=== PATIENT | female | born 1950 | race Caucasian/White ===

== ENCOUNTER 2016-04-30 06:29 | Inpatient (IN) | payer MEDICARE ==
[2016-04-30] VITALS (27 sets, daily range): BP systolic 101–151; BP diastolic 59–94; BMI 53.4
[~2016-04-30] VITALS: Ht 167.6 cm; Wt 149.7 kg
[~2016-04-30 06:29] MED LIST: EFFEXOR XR150 MG PO; LEVOTHYROXINE50 MCG PO; LIPITOR40 MG PO; LISINOPRIL10 MG PO; NEURONTIN600 MG PO; OXYBUTYNIN CHLOR5 MG PO; PROTONIX40 MG PO; ZOCOR40 MG PO
[2016-04-30 07:25] LABS: BASOPHILS 0.1 % (0.0-2.0); EOSINOPHILS 0.5 % (0-7); HEMATOCRIT 22.5 % (36.0-48.0); IMMATURE GRANULOCYTES 0.7 % (0-5); LYMPHOCYTES 9.3 % (15-50); MCH 25.6 pg (26.0-34.0); MCHC 32.9 g/dL (31.0-37.0); MCV 77.9 fL (80.0-100.0); MEAN PLATELET VOLUME 9.8 fL (7.4-10.4); MONOCYTES 10.3 % (2-11); NEUTROPHILS 79.1 % (40-80); RBC 2.89 10x6/uL (4.00-5.40); RDW 16.5 % (11.5-14.5); WBC 9.2 10x3/uL (4.8-10.8)
[2016-04-30 07:31] LABS: HEMOGLOBIN 7.4 g/dL (12-16); PLATELET COUNT 229 10x3/uL (130-400)
[2016-04-30 07:41] LABS: ALBUMIN 2.4 g/dL (3.4-5.0); ALKALINE PHOSPHATASE 104 U/L (46-116); ALT (SGPT) 11 U/L (10-68); BILIRUBIN - TOTAL 1.93 mg/dL (0.2-1.3); CALC OSMOLALITY 279 mosm/kg (275-300); CALCIUM 9.2 mg/dL (8.5-10.1); CARBON DIOXIDE 21.8 mmol/L (21.0-32.0); CHLORIDE - SERUM 102 mmol/L (98-107); CREATININE - SERUM 1.2 mg/dL (0.6-1.3); GLUCOSE 109 mg/dL (74-106); POTASSIUM - SERUM 3.3 mmol/L (3.5-5.1); SODIUM 136 mmol/L (136-145); UREA NITROGEN 32 mg/dL (7-18); eGFR NON AFRICAN AMERICAN 48 mL/min (90-120)
[2016-04-30 07:57] LABS: CKMB 0.9 U/L (0.0-3.6); CREATINE KINASE 83 UL (21-215); TROPONIN-I 0.142 ng/mL (0.000-0.060)
--- NOTE | 2016-04-30 09:47 | NUR ---
CALLED DR MONROY AND PEDRO OFFICE FOR CONSULTS.
--- NOTE | 2016-04-30 10:07 | NUR ---
NOTED CONSULT FOR OBGYN, DR HERNDON IS COMMUNITY SERVICES MANAGER FOR OBGYN, SPOKE WITH DR HERNDON. HE STATED HE WOULD BE BY TO SEE PT TODAY.
[2016-04-30] MEDS ORDERED: IBUPROFEN800 MG PO ×2 (10:48→10:49)
[2016-04-30] MEDS ORDERED: METOPROLOL TART25 MG PO (10:51)
[2016-04-30] MEDS ORDERED: LOVENOX40 MG/0.4 SC (10:52)
[2016-04-30] MEDS ORDERED: COLACE100 MG PO (10:53)
[2016-04-30] MEDS ORDERED: PERCOCET 5-3251 TAB PO (10:55)
[2016-04-30] MEDS ORDERED: GENASYME80 MG PO (10:57)
[2016-04-30] MEDS ORDERED: ULTRAM50 MG PO ×2 (10:57→10:58)
[2016-04-30] MEDS ORDERED: COZAAR50 MG PO (10:59)
[2016-04-30] MEDS ORDERED: PROZAC40 MG PO (11:00)
[2016-04-30] MEDS ORDERED: BAYER CHEWABLE81 MG PO (11:00)
--- NOTE | 2016-04-30 11:15 | NUR ---
NOTED ABDOMINAL INCISION SITE HAS 24 CLIPS, STERI STRIPS APPLIED TO PARTS OF THE INCISION TO PROVIDE EXTRA SUPPORT. THERE IS AN INCH GAP BETWEEN CLIP TO THE NEXT CLIP AT THE CENTER OF INCISION SITE. STERI STRIPS PLACED TO PROVIDED SUPPORT TO SITE. SITE CLEANSED WITH WOUND CLEANSER. SITE IS CDI. NO ACUTE DISTRESS NOTED. WILL CONTINUE PLAN OF CARE.
--- NOTE | 2016-04-30 11:20 | NUR ---
NOTED STANDARD SCDS ARE TOO SMALL FOR PT. CALLED [facility], NOTED THERE IS A SIZE THAT IS SLIGHTLY LARGER THAN THE CURRENT SCDS. [facility] STATED THEY WILL DELIVER LARGER SCD SHORTLY. WILL CONTINUE PLAN OF CARE.
--- NOTE | 2016-04-30 11:54 | NUR ---
SITTING UP IN BED AT THIS TIME. AWAKE AND ALERT. NO ACUTE DISTRESS NOTED. DENIES ANY NEEDS. WILL CONTINUE PLAN OF CARE.
--- NOTE | 2016-04-30 12:15 | NUR ---
SITTING UP IN BED AT THIS TIME VISITING WITH FAMILY. NO ACUTE DISTRESS NOTED.W ILL CONTINUE PLAN OF CARE.
--- NOTE | 2016-04-30 12:32 | NUR ---
NOTED PT HAS METOPROLOL ORDERED TO BE ADMIN. PT CURRENTLY RECIEVING BLOOD AT THIS TIME. WILL ADMIN AFTER BLOOD INFUSION IS COMPLETE.
--- NOTE | 2016-04-30 13:49 | NUR ---
PT LEFT FOR CT AT THIS TIME VIA BED, ACCOMPANIED BY HOSPITAL STAFF. NO ACUTE DISTRESS NOTED. WILL CONTINUE PLAN OF CARE.
--- NOTE | 2016-04-30 14:15 | NUR ---
RETURNED FROM CT AT THIS TIME VIA BED ACCOMPANIED BY HOSPITAL STAFF. NO ACUTE DISTRESS NOTED. WILL CONTINUE TO OBSERVE.
[2016-04-30 15:28] LABS: HEMOGLOBIN 7.8 g/dL (12-16)
[2016-04-30 16:10] LABS: CKMB 8.3 U/L (0.0-3.6); CREATINE KINASE 138 UL (21-215); TROPONIN-I 2.214 ng/mL (0.000-0.060)
--- NOTE | 2016-04-30 16:38 | NUR ---
SITTING UP IN BED WATCHING TV AT THIS TIME. NO ACUTE DISTRESS NOTED. WILL CONTINUE PLAN FO CARE.
--- NOTE | 2016-04-30 18:07 | NUR ---
SMALL EPISODE OF INCONTINENT BOWEL MOVEMENT NOTED, FORMED BROWN. PARTIAL LINEN CHANGE PROVIDED. ALSO NOTED AT THIS TIME SOME SCANT DRAINAGE NOTED TO LEFT SIDE OF INCISIONAL SITE, LIGHT RED IN COLOR. 4X4 GAUAZE AND TAPE APPLIED TO SITE. NO ACUTE DISTRESS NOTED. WILL CONTINUE PLAN OF CARE.
--- NOTE | 2016-04-30 19:00 | NUR ---
PT AOX4, DENIES PAIN AT THIS TIME. VSS, SHALLOW RESPIRATIONS, SPO2 97 ON 2L O2. BOWEL SOUNDS ACITVE IN ALL QUADRANTS. ABD TENDER WITH LOWER TRANSVERSE INCISION PRESENT WITH CLIPS AND STERI STRIPS INTACT. JOYCE CATH INTACT. GENERALIZED WEAKNESS PRESENT. PT REPOSITIONED FOR COMFORT. DENIES FURTHER NEEDS AT THIS TIME. CALL LIGHT AND BEDSIDE TABLE WITHIN PT REACH. CPOC.
[2016-04-30 20:09] LABS: HEMATOCRIT 24.6 % (36.0-48.0); HEMOGLOBIN 7.9 g/dL (12-16)
--- NOTE | 2016-04-30 20:15 | NUR ---
YANICK CALLED WITH LATEST H&H RESULTS. NEW ORDER'S REC'D.
[2016-04-30 20:32] LABS: APPEARANCE HAZY (CLEAR); BILIRUBIN NEGATIVE (NEGATIVE); COLOR YELLOW (YELLOW); GLUCOSE NEGATIVE (NEGATIVE); KETONE NEGATIVE (NEGATIVE); LEUKOCYTE ESTERASE 2+ (NEGATIVE); NITRITE POSITIVE (NEGATIVE); PROTEIN TRACE mg/dL (NEGATIVE); UROBILINOGEN NORMAL (NORMAL)
[2016-04-30 20:34] LABS: BACTERIA MANY /hpf (NONE SEEN); WHITE CELLS - URINE >50 /hpf (0-5)
[2016-04-30 20:43] LABS: CKMB 11.8 U/L (0.0-3.6); CREATINE KINASE 156 UL (21-215)
[2016-04-30 20:44] LABS: TROPONIN-I 4.459 ng/mL (0.000-0.060)
--- NOTE | 2016-04-30 21:12 | NUR ---
SARA IRAHETA WITH ELEVATED CARDIAC ENZYME RESULTS, NO NEW ORDERS REC'D AT THIS TIME. CPOC.
--- NOTE | 2016-04-30 21:45 | NUR ---
1 UNIT PRBC'S STARTED, NO S/S OF REACTION AT THIS TIME. VSS. DENIES PAIN AT THIS TIME. NO VISITORS AT THIS TIME. CALL LIGHT AND BEDSIDE TABLE WITHIN PT REACH. CPOC.
[2016-05-01] VITALS (22 sets, daily range): BP systolic 97–141; BP diastolic 49–92; Ht 167.6 cm; Wt 149.7 kg
--- NOTE | 2016-05-01 01:00 | NUR ---
PT SLEEPING QUIETLY WITH VSS, NO S/S OF PAIN OR DISTRESS NOTED AT THIS TIME. PT ALLOWED TO CONTINUE SLEEPING UNDISTURBED AT THIS TIME. CALL LIGHT AND BEDSIDE TABLE WITHIN PT REACH. CPOC.
--- NOTE | 2016-05-01 03:00 | NUR ---
REASSESSMENT COMPLETE, SEE FLOWSHEET FOR ALL FINDINGS. PT REPOSITIONED FOR COMFORT. ABD INCISION CLEAN AND DRY. PARTIAL LINEN CHANGE COMPLETE. VSS, NO C/O PAIN AT THIS TIME. VOICES NO NEEDS AT THIS TIME. CALL LIGHT AND BEDSIDE TABLE WITHIN PT REACH. CPOC.
--- NOTE | 2016-05-01 05:00 | NUR ---
PT SLEEPING QUIETLY WITH VSS, NO S/S OF PAIN OR DISTRESS AT THIS TIME.
[2016-05-01 05:41] LABS: BASOPHILS 0.1 % (0.0-2.0); EOSINOPHILS 1.9 % (0-7); HEMATOCRIT 26.7 % (36.0-48.0); HEMOGLOBIN 8.6 g/dL (12-16); IMMATURE GRANULOCYTES 0.8 % (0-5); MCH 25.7 pg (26.0-34.0); MCHC 32.2 g/dL (31.0-37.0); MONOCYTES 11.7 % (2-11); NEUTROPHILS 73.5 % (40-80); PLATELET COUNT 238 10x3/uL (130-400); RBC 3.34 10x6/uL (4.00-5.40); RDW 16.5 % (11.5-14.5); WBC 7.9 10x3/uL (4.8-10.8)
[2016-05-01 05:44] LABS: MCV 79.9 fL (80.0-100.0)
[2016-05-01 06:07] LABS: ALBUMIN 2.2 g/dL (3.4-5.0); ALKALINE PHOSPHATASE 100 U/L (46-116); CALC OSMOLALITY 281 mosm/kg (275-300); CALCIUM 8.6 mg/dL (8.5-10.1); CARBON DIOXIDE 24.9 mmol/L (21.0-32.0); CHLORIDE - SERUM 104 mmol/L (98-107); CHOL - HDL RATIO 5.6 ratio (2.3-4.1); CHOLESTEROL, TOTAL 129 mg/dL (0-200); CREATININE - SERUM 0.9 mg/dL (0.6-1.3); GLUCOSE 88 mg/dL (74-106); HDL CHOLESTEROL 23 mg/dL (32-96); LDL CHOLESTEROL 80 mg/dL (0-100); LDL-HDL RATIO 3.5 ratio (1.5-3.5); PHOSPHOROUS 3.8 mg/dL (2.5-4.9); POTASSIUM - SERUM 3.6 mmol/L (3.5-5.1); PRO BNP 8474 pg/mL (0-125); PROTEIN - SERUM 5.9 g/dL (6.4-8.2); SODIUM 139 mmol/L (136-145); THYROID STIMULATING HORMONE 2.06 uIU/mL (0.36-3.74); TRIGLYCERIDE 132 mg/dL (30-200); UREA NITROGEN 27 mg/dL (7-18); eGFR NON AFRICAN AMERICAN 67 mL/min (90-120)
[2016-05-01 06:13] LABS: ALT (SGPT) 16 U/L (10-68); TROPONIN-I 3.448 ng/mL (0.000-0.060)
--- NOTE | 2016-05-01 07:49 | NUR ---
NOTED DR HERNDON HAD COME BY TO SEE PT. INCISIONAL SITE NOTED TO HAVE SOME DARK RED DRAINAGE. DR HERNDON AT THIS TIME DC CLIPS AND USED GAUZE TO HELP ASSIST THE DRAINAGE. FLUID FROM INCISION NOTED FOWEL SMELLING. CULTURE OF INCISIONAL SITE SENT TO LAB. AT THIS TIME ALSO NOTED PHYSICIAN CONSULT ORDER FOR DR BARNETT TO ASSESS INCISIONAL SITE TO SEE IF ANY OTHER STEPS NEED TO BE PERFORMED AT THIS TIME. CALLED CONSENT INTO DR BARNETT, DR BARNETT STATED HE WOULD BE BY TO SEE PT. NO FURTHER ORDERS AT THIS TIME. WILL CONTINUE PLAN OF CARE.
[2016-05-01 09:22] LABS: HEMATOCRIT 27.1 % (36.0-48.0); HEMOGLOBIN 8.8 g/dL (12-16)
--- NOTE | 2016-05-01 10:04 | NUR ---
SITTING UP IN BED RESTING AT THIS TIME. RESTPIRATIONS EVEN AND UNLABORED. NO AWAKENS EASILY TO STAFF VOICE. NO ACUTE DISTRESS NOTED. WILL CONTINUE PLAN OF CARE.
--- NOTE | 2016-05-01 11:27 | NUR ---
NOTED DR BARNETT HAS SEEN PT. ABDOMINAL INCISION SITE HAS BEEN CLEANED WITH HYDROGEN PEROXIDE AND PACKED WITH CUREX THEN COVERED WITH ABD PAD. DR BARNETT STATED HE WOULD BE BY TOMORROW TO CHANGE THE PACKING. ALSO REGULAR DIET ORDERED AT THIS TIME. WILL CONTINUE PLAN OF CARE.
[2016-05-01 13:17] LABS: HEMATOCRIT 28.2 % (36.0-48.0); HEMOGLOBIN 9.1 g/dL (12-16)
--- NOTE | 2016-05-01 13:18 | NUR ---
SMALL BOWEL MOVEMENT NOTED, LOOSE BROWN. ALL CARE AND JOYCE CARE PROVIDED VIA TOTAL ASSIST. PT IS ABLE TO HELP WITH TURNING VIA MODERATE ASSIST. BUTTPASTE APPLIED TO BUTTOCKS. NO ACUTE DISTRESS NOTED. WILL CONTINUE PLAN OF CARE.
--- NOTE | 2016-05-01 15:17 | NUR ---
SMALL BOWEL MOVEMENT NOTED VIA BEDPAN, LIQUID BROWN-YELLOW. ALL CARE AND JOYCE CARE PROVIDED VIA TOTAL ASSIST X 2. NO ACUTE DISTRESS NOTED. WILL CONTINUE PLAN OF CARE. FAMILY AT BEDSIDE.
--- NOTE | 2016-05-01 16:26 | NUR ---
SITTING UP IN BED RESTING AT THIS TIME. AWAKENS EASILY WHEN STAFF STATES PT NAME. NO ACUTE DISTRESS NOTED. WILL CONTINUE PLAN OF CARE.
[2016-05-01 18:58] LABS: HEMATOCRIT 30.6 % (36.0-48.0); HEMOGLOBIN 9.5 g/dL (12-16)
--- NOTE | 2016-05-01 19:25 | NUR ---
PT AOX4. VSS, RATES PAIN AT 4/10. PT REPOSITIONED FOR COMFORT. LOWER ABD WITH TRANSVERSE INCISION PRESENT, DRSG CDI WITH NO S/S OF BLEEDING AT THIS TIME. BRUISING NOTED TO ABDOMEN. GENERLIZED WEAKNESS PRESENT. LINEN CHANGE COMPLETE. ORAL CARE COMPLETE. DENIES FURTHER NEEDS AT THIS TIME. CALL LIGHT AND BEDSIDE TABLE WITHIN PT REACH. CPOC.
--- NOTE | 2016-05-01 21:03 | NUR ---
NO VISITORS AT THIS TIME. PT STATES PAIN MEDICATION HAS MADE HER COMFORTABLE. PT REPOSITIONED. NO S/S OF DRAINAGE OR BLEEDING FROM INCISION SITE AT THIS TIME. VSS. DENIES FURTHER NEEDS AT THIS TIME. CALL LIGHT AND BEDSIDE TABLE WITHIN PT REACH. CPOC.
--- NOTE | 2016-05-01 23:09 | NUR ---
REASSESSMENT COMPLETE, SEE FLOWSHEET FOR ALL FINDINGS. PT RESTING QUIETLY WITH VSS. ABD INCISION WITHOUT S/S OF DRAINAGE AT THIS TIME. DSG CDI. FRESH WATER TO BEDSIDE. REPOSITIONED FOR COMFORT. VOICES NO FURTHER NEEDS AT THIS TIME. CALL LIGHT AND BEDSIDE TABLE WITHIN PT REACH. CPOC.
[2016-05-02] VITALS (18 sets, daily range): BP systolic 105–184; BP diastolic 62–95
--- NOTE | 2016-05-02 01:38 | NUR ---
PT SLEEPING QUIETLY WITH VSS, NO S/S OF DISTRESS AT THIS TIME. PT ALLOWED TO CONTINUE SLEEPING UNDISTURBED AT THIS TIME. CALL LIGHT AND BEDSIDE TABLE WITHIN PT REACH. CPOC.
--- NOTE | 2016-05-02 03:04 | NUR ---
SMALL AMOUNT OF SEROSANG DRAINAGE NOTED FROM LEFT LOWER PORTION OF ABD DRESSING. GOWN CHANGED. PT REPORTS NO PAIN AT THIS TIME. VSS. PT RESTING COMFORTABLY AT THIS TIME. CALL LIGHT AND BEDSIDE TABLE WITHIN PT REACH. CPOC.
[2016-05-02 07:04] LABS: ALBUMIN 2.2 g/dL (3.4-5.0); ANION GAP 14.5 mmol/L (8-16); BILIRUBIN - TOTAL 0.76 mg/dL (0.2-1.3); CALCIUM 8.7 mg/dL (8.5-10.1); CARBON DIOXIDE 23.5 mmol/L (21.0-32.0); CREATININE - SERUM 0.9 mg/dL (0.6-1.3)
[2016-05-02 07:09] LABS: BASOPHILS 0.3 % (0.0-2.0); EOSINOPHILS 3.8 % (0-7); HEMATOCRIT 27.8 % (36.0-48.0); HEMOGLOBIN 8.9 g/dL (12-16); LYMPHOCYTES 15.2 % (15-50); MCH 25.8 pg (26.0-34.0); MCV 80.6 fL (80.0-100.0); MEAN PLATELET VOLUME 10.2 fL (7.4-10.4); MONOCYTES 10.9 % (2-11); NEUTROPHILS 67.8 % (40-80); PLATELET COUNT 262 10x3/uL (130-400); RBC 3.45 10x6/uL (4.00-5.40); RDW 16.8 % (11.5-14.5); WBC 7.9 10x3/uL (4.8-10.8)
--- NOTE | 2016-05-02 08:19 | NUR ---
SITTING UP IN BED AT THIS TIME EATING BREAKFAST. DENIES ANY NEEDS AT THIS TIME. NO ACUTE DISTRESS NOTED. WILL CONTINUE PLAN OF CARE.
--- NOTE | 2016-05-02 11:54 | NUR ---
NOTED RECICEVED TRANSFER ORDERS FROM DR BARNETT, DR VO, AND DR HERNDON. WILL TRANSFER PT TO [facility] WITH DIAGNOSIS OF ACUTE BLOOD LOSS CAUSE OF POST OP ANEMIA. WILL NOTIFY SOFTWARE DESIGN ANALYST AT THIS TIME.
--- NOTE | 2016-05-02 12:22 | NUR ---
SITTING UP IN BED AT THIS TIME EATING LUNCH AT THIS TIME. NO ACUTE DISTRESS NOTED. DENIES ANY NEEDS. WILL CONTINUE PLAN OF CARE.
[2016-05-02 13:01] LABS: HEMATOCRIT 29.5 % (36.0-48.0); HEMOGLOBIN 9.3 g/dL (12-16)
--- NOTE | 2016-05-02 14:59 | NUR ---
LARGE SIZED BOWEL MOVEMENT NOTED. ASSISTED PT WITH CLEANUP WITH ALL CARE AND JOYCE CARE VIA TOTAL ASSIST X 2 PERSON. BUTTPASTE APPLIED TO SITE. NO ACUTE DISTRESS NOTED. WILL CONTINUE PLAN OF CARE.
--- NOTE | 2016-05-02 15:40 | NUR ---
NOTED ORDERS FOR PT TO GO TO ROOM 2225, WILL CALL REPORT TO MED SURG AT THIS TIME.
--- NOTE | 2016-05-02 15:54 | NUR ---
REPORT GIVEN TO BERNADETTE. WILL SEND PT SHORTLY TO ROOM 2225.
--- NOTE | 2016-05-02 16:15 | NUR ---
PT TRANSFERRED TO 2225 AT THIS TIME VIA BED ACCOMPANIED BY HOSPITAL STAFF. ALL PESONAL ITEMS TAKEN TO ROOM 2225 WITH PT. NO FURTHER ACTIONS.
--- NOTE | 2016-05-02 16:30 | NUR ---
TO ROOM 2225VIA BED FROM ICU.PT WITHOUT DISTRESS.BRUISES NOTED TO BILATERAL ARMS.RASH UNDER ARMS AND ABDOMINAL FOLDS.ABDOMINAL DRESSING CLEAN,DRY AND INTACT.EXCORIATION AND OPEN AREAS NOTED IN BILATERAL INNER BUTTOCKS. SCD'S IN PLACE.02 AT 2 LITERS PER NASAL CANULA WITH SATS 95-96 ON ROOM AIR.
--- NOTE | 2016-05-02 17:40 | NUR ---
PAIN MEDS ORDERED PER JUN.
[2016-05-02 18:21] LABS: HEMATOCRIT 30.1 % (36.0-48.0); HEMOGLOBIN 9.5 g/dL (12-16)
--- NOTE | 2016-05-02 19:00 | NUR ---
REC'D IN BED AWAKE AND ALERT. RESP EVEN AND UNLABORED WITH NO DISTRESS NOTED. PT NOTED TO HAVE BROWN DRAINING NOTE TO HER GOWN AND BED LINEN AT THIS TIME. CAN VOICE NEEDS AND WANTS. ASSESSMENT COMPLETED. C/L IN REACH AT BEDSIDE.
--- NOTE | 2016-05-02 19:14 | NUR ---
REMAINS WITHOUT NEEDS,WITHOUT DISTRESS.CONT PLAN OF CARE
--- NOTE | 2016-05-02 20:00 | NUR ---
PT WAS BATHED AT THIS TIME WITH BROWNISH DRAINAGE NOTED FROM UNDERNEATH LEFT SIDE OF DRESSING. EXTRA ABD PADS WAS APPLIED AT THIS TIME UNDERNEATH FOLDS.BED LINEN WAS CHANGED. C/L IN REACH AT BEDSIDE.
[2016-05-03] VITALS: BP 165/54
[2016-05-03 04:00] VITALS: BP 158/60
--- NOTE | 2016-05-03 04:52 | NUR ---
RESTING WELL AT THIS TIME. C/L IN REACH AT BEDSIDE.
--- NOTE | 2016-05-03 07:30 | NUR ---
AWAKE ALERT COLOR ADQ SKIN WARM AND DRY RESP EVEN AND UNLABORED AT PRESENT UPPER LEFT ARM IV IN PLACE SITE CLEAN AND DRY WITHOUT REDDNESS OR EDEMA MANY OLD BRUISES TO BODY AT PRESENT.
[2016-05-03 08:18] VITALS: BP 186/64
--- NOTE | 2016-05-03 09:00 | NUR ---
MEDS GIVEN VICTOR MANUEL WELL AT PRESENT N/C VOICED.
--- NOTE | 2016-05-03 10:50 | NUR ---
DSG CHG DONE REPACKED PURULENT DRAINAGE NOTED AT PRESENT WTD.
--- NOTE | 2016-05-03 11:00 | NUR ---
WATCHING QUIETLY AT PRESENT DENIES ANY NEEDS AT PRESENT.DSG TO ABD IN TACT AT PRESENT.
--- NOTE | 2016-05-03 11:05 | NUR ---
Patient Name: OLEG ELY Admission Status: ER Accout number: [id number] Admission Date: 04-30-2016 : 1950 Admission Diagnosis: Attending: ALBERTO Current LOS: 3 Anticipated DC Date: 05-07-2016 Planned Disposition: Home or Self Care Primary Insurance: [facility] Discharge Planning Comments: CM MET WITH PATIENT REGARDING D/C NEEDS AND PLANS. PATIENT STATED SHE LIVES ALONE AND HER DAUGHTER (EMILY) WILL PICK HER UP AT DISCHARGE AND DRIVE HER HOME. PATIENT IS INDEPENDENT WITH HER CARE AND HAS A WHEELCHAIR, WALKER, SHOWER CHAIR, AND HOSPITAL BED AT HOME. PATIENT STATED THERE ARE NO STEPS OR STAIRS AT HER HOME. PATIENTS PCP IS DR. BOWLING AND PHARMACY IS [facility]. PATIENT RECENTLY WAS AT [facility] AND NOW BACK IN HOSPITAL. PATIENT DOES NOT WANT HH AT THIS TIME. CM WILL CONTINUE TO FOLLOW PATIENT WITH D/C NEEDS AND PLANS. PCP DR[facility]- [phone] EMILY (DAUGHTER) [phone] Class B Driver: Esther Liao Is the patient Alert and Oriented? Yes 0 * How many steps to enter\exit or inside your home? 0 0 * PCP DR. BOWLING 0 * Pharmacy [facility] 0 * Preadmission Environment Home Alone 0 * ADLs Independent 0 * Equipment Hospital Bed Shower Chair Walker Wheelchair 0 * List name and contact numbers for known caregivers / representatives who currently or will assist patient after discharge: EMILY (DAUGHTER) [phone] 0 Grand Total: 0
[2016-05-03 11:49] VITALS: BP 130/46
[2016-05-03 12:13] LABS: BASOPHILS 0.1 % (0.0-2.0); EOSINOPHILS 2.2 % (0-7); HEMATOCRIT 29.1 % (36.0-48.0); HEMOGLOBIN 9.1 g/dL (12-16); IMMATURE GRANULOCYTES 1.2 % (0-5); LYMPHOCYTES 11.6 % (15-50); MCH 25.6 pg (26.0-34.0); MCHC 31.3 g/dL (31.0-37.0); MCV 81.7 fL (80.0-100.0); MEAN PLATELET VOLUME 9.7 fL (7.4-10.4); MONOCYTES 9.2 % (2-11); NEUTROPHILS 75.7 % (40-80); PLATELET COUNT 234 10x3/uL (130-400); RBC 3.56 10x6/uL (4.00-5.40); RDW 17.1 % (11.5-14.5); WBC 8.6 10x3/uL (4.8-10.8)
[2016-05-03 12:48] LABS: ALBUMIN 2.1 g/dL (3.4-5.0); ANION GAP 13.2 mmol/L (8-16); BILIRUBIN - TOTAL 0.56 mg/dL (0.2-1.3); CALCIUM 8.7 mg/dL (8.5-10.1); CARBON DIOXIDE 22.6 mmol/L (21.0-32.0); CREATININE - SERUM 0.9 mg/dL (0.6-1.3); POTASSIUM - SERUM 3.8 mmol/L (3.5-5.1); PROTEIN - SERUM 5.6 g/dL (6.4-8.2)
--- NOTE | 2016-05-03 13:00 | NUR ---
WATCHING TV QUIETLY AT PRESENT.
--- NOTE | 2016-05-03 14:00 | NUR ---
QUIET IN ROOM AT PRESENT DENIES ANY NEEDS AT PRESENT.DENIES ANT NEEDS OTHER THAN CONT TO C/O PAIN AT PRESENT.
[2016-05-03 15:47] VITALS: BP 157/66
--- NOTE | 2016-05-03 16:45 | NUR ---
STATUS REMAINS UNCHGD URINE OBTAINED FROM JOYCE IN ST MANNER STATUS REMAINS UNCHGD AT PRESENT.
[2016-05-03 18:32] LABS: APPEARANCE CLEAR (CLEAR); BILIRUBIN NEGATIVE (NEGATIVE); COLOR YELLOW (YELLOW); GLUCOSE NEGATIVE (NEGATIVE); KETONE NEGATIVE (NEGATIVE); LEUKOCYTE ESTERASE 1+ (NEGATIVE); NITRITE NEGATIVE (NEGATIVE); PROTEIN TRACE mg/dL (NEGATIVE); SPECIFIC GRAVITY 1.015 (1.005-1.020); UROBILINOGEN NORMAL (NORMAL); WHITE CELLS - URINE 0-5 /hpf (0-5)
[2016-05-03 18:33] LABS: BACTERIA FEW /hpf (NONE SEEN); EPITHELIAL CELLS 0-5 /hpf (0-5); RED CELLS - URINE 25-50 /hpf (0-5)
[2016-05-03 19:00] VITALS: BP 157/65
[2016-05-04] VITALS: BP 185/76
[2016-05-04 04:00] VITALS: BP 156/54
--- NOTE | 2016-05-04 04:08 | NUR ---
EYES CLOSED RESPIRATIONS WITH EASE AND UNLABORED.
[2016-05-04 05:11] LABS: ANION GAP 11.2 mmol/L (8-16); BILIRUBIN - TOTAL 0.49 mg/dL (0.2-1.3); CALCIUM 8.4 mg/dL (8.5-10.1); CARBON DIOXIDE 25.2 mmol/L (21.0-32.0); CREATININE - SERUM 0.9 mg/dL (0.6-1.3); POTASSIUM - SERUM 3.4 mmol/L (3.5-5.1); PROTEIN - SERUM 5.4 g/dL (6.4-8.2)
[2016-05-04 05:18] LABS: BASOPHILS 0.1 % (0.0-2.0); EOSINOPHILS 2.3 % (0-7); HEMATOCRIT 28.5 % (36.0-48.0); HEMOGLOBIN 8.6 g/dL (12-16); IMMATURE GRANULOCYTES 1.4 % (0-5); LYMPHOCYTES 15.1 % (15-50); MCH 25.4 pg (26.0-34.0); MCHC 30.2 g/dL (31.0-37.0); MCV 84.1 fL (80.0-100.0); MONOCYTES 9.5 % (2-11); NEUTROPHILS 71.6 % (40-80); PLATELET COUNT 276 10x3/uL (130-400); RBC 3.39 10x6/uL (4.00-5.40); RDW 17.6 % (11.5-14.5); WBC 8.4 10x3/uL (4.8-10.8)
--- NOTE | 2016-05-04 07:00 | NUR ---
REPORT RECIEVED ASSUMED CARE. PATIENT IN BED WITH IV INTACT. NO COMPLAINTS. CALL LIGHT WITHIN REACH.
[2016-05-04 08:12] VITALS: BP 184/76
--- NOTE | 2016-05-04 08:29 | NUR ---
DRESSING CHANGED AT THIS TIME BY DR. BARNETT.
--- NOTE | 2016-05-04 10:45 | NUR ---
PATIENT REPOSITIONED AND CHANGED AT THIS TIME. STATED SHE HAS ALREADY NOTIFIED PHYSICIAN ABOUT [facility] DISCHARGE. NO NEW ORDERS AT THIS TIME. CALL LIGHTW ITHIN REACH.
--- NOTE | 2016-05-04 11:03 | NUR ---
NUTRITION MONITORING & EVAL CHART REVIEWED. PT CURRENTLY SLEEPING. SENIOR SALES OPERATIONS ANALYST REPORTS PT WITH ~25% INTAKE REG BREAKFAST. WILL CONTINUE TO PROVIDE DIET, MONITOR PT PROGRESS. RD FOLLOWING
[2016-05-04 11:55] VITALS: BP 155/57
[2016-05-04 16:37] VITALS: BP 130/63
--- NOTE | 2016-05-04 18:55 | NUR ---
PATIENT IN BED WITH IV INTACT. NO COMPLAINTS. CALL LIGHT WITHIN REACH.
[2016-05-04 19:00] VITALS: BP 192/72
--- NOTE | 2016-05-04 20:00 | NUR ---
ASSESSMENT PER FLOWSHEET. LEFT MIDLINE IV PATENT WITH NS AT 10CC'S/HR AND PROTONIX GTT AT 10CC'S/HR. SITE CLEAR. ABDOMINAL INCISION DRSG C/D/I. VAGINAL PAD ON. JOYCE TO BS DRAINAGE WITH YELLOW URINE. SR UP X2 CALL LIGHT WITHIN REACH.
--- NOTE | 2016-05-04 21:30 | NUR ---
MEDS GIVEN PER MAR.
--- NOTE | 2016-05-04 23:08 | NUR ---
DENIES NEEDS SR UP X2 CALL LIGHT WITHIN REACH.
--- NOTE | 2016-05-04 23:08 | NUR ---
RESTING QUIETLY RESPIRATIONS WITH EASE AND UNLABORED.
[2016-05-05 01:00] VITALS: BP 154/78
--- NOTE | 2016-05-05 04:31 | NUR ---
C/O INCISIONAL PAIN RATES PAIN LEVEL #6 NORCO 10 TAB ONE PO GIVEN FOR PAIN CONTROL.
[2016-05-05 04:53] VITALS: BP 160/80
[2016-05-05 05:48] LABS: BASOPHILS 0.1 % (0.0-2.0); EOSINOPHILS 3.4 % (0-7); IMMATURE GRANULOCYTES 1.5 % (0-5); LYMPHOCYTES 15.3 % (15-50); MCH 25.6 pg (26.0-34.0); MCV 82.4 fL (80.0-100.0); MEAN PLATELET VOLUME 9.9 fL (7.4-10.4); MONOCYTES 7.9 % (2-11); NEUTROPHILS 71.8 % (40-80); PLATELET COUNT 306 10x3/uL (130-400); RBC 3.52 10x6/uL (4.00-5.40); RDW 17.5 % (11.5-14.5); WBC 7.4 10x3/uL (4.8-10.8)
[2016-05-05 06:21] LABS: ALKALINE PHOSPHATASE 81 U/L (46-116); CALC OSMOLALITY 284 mosm/kg (275-300); CALCIUM 8.4 mg/dL (8.5-10.1); CARBON DIOXIDE 28.5 mmol/L (21.0-32.0); CHLORIDE - SERUM 108 mmol/L (98-107); CREATININE - SERUM 0.8 mg/dL (0.6-1.3); GLUCOSE 91 mg/dL (74-106); PROTEIN - SERUM 4.8 g/dL (6.4-8.2); SODIUM 143 mmol/L (136-145); UREA NITROGEN 13 mg/dL (7-18); eGFR NON AFRICAN AMERICAN 77 mL/min (90-120)
[2016-05-05 06:23] LABS: ALT (SGPT) 16 U/L (10-68); POTASSIUM - SERUM 4.2 mmol/L (3.5-5.1)
--- NOTE | 2016-05-05 07:25 | NUR ---
PATIENT RECEIVED IN MID SHAFFER POSITION RESTING WITH EYES CLOSED. RESPIRATIONS EVEN AND UNLABORED. SIDE RAILS UP X3. BED IN LOW POSITION. CALL LIGHT IN REACH.
[2016-05-05 08:08] VITALS: BP 147/64
--- NOTE | 2016-05-05 08:40 | NUR ---
PATIENT ALERT IN MID SHAFFER POSITION EATING BREAKFAST. TOLERATING WELL. SCHEDULED MEDICATION ADMINISTERED. DENIES NEEDS. SIDE RAILS UP X2. BED IN LOW POSITION. CALL LIGHT IN REACH.
--- NOTE | 2016-05-05 10:52 | NUR ---
PATIENT ALERT IN BED WATCHING TV. C/O PAIN 12/02. 1 TAB NORCO PER PRN ORDER. BED IN LOW POSITION. CALL LIGHT IN REACH. SIDE RAILS UP X3
[2016-05-05 12:19] VITALS: BP 185/71
--- NOTE | 2016-05-05 13:45 | NUR ---
JOYCE CATH D/C PER ORDER. JOYCE CARE PROVIDED PER PROTOCOL. APPROXIMATELY 1650CC URINE REMAINED IN COLLECTION BAG. WELL TOLERATED. WILL CONTINUE TO MONITOR OUTPUT
[2016-05-05 15:45] VITALS: BP 132/57
--- NOTE | 2016-05-05 16:40 | NUR ---
PATIENT IN BED RESTING QUIETLY WITH EYES CLOSED. RESPIRATIONS EVEN AND UNLABORED. WAKES EASY. SCHEDULED MEDICATION ADMINISTERED. SIDE RAILS UP X2. BED IN LOW POSITION. CALL LIGHT IN REACH.
--- NOTE | 2016-05-05 18:00 | NUR ---
ALERT IN MID SHAFFER POSITION WATCHING TV. NO SIGNS OF DISTRESS NOTED. DENIES NEEDS. SIDE RAILS UP X2. BED IN LOW POSITION. CALL LIGHT IN REACH.
[2016-05-05 21:11] VITALS: BP 116/83
[2016-05-06 04:24] VITALS: BP 198/81
[2016-05-06 05:25] LABS: BASOPHILS 0.1 % (0.0-2.0); EOSINOPHILS 2.7 % (0-7); IMMATURE GRANULOCYTES 1.1 % (0-5); LYMPHOCYTES 14.4 % (15-50); MCH 25.3 pg (26.0-34.0); MCV 81.5 fL (80.0-100.0); MEAN PLATELET VOLUME 9.7 fL (7.4-10.4); MONOCYTES 8.9 % (2-11); NEUTROPHILS 72.8 % (40-80); PLATELET COUNT 320 10x3/uL (130-400); RBC 3.56 10x6/uL (4.00-5.40); WBC 7.5 10x3/uL (4.8-10.8)
[2016-05-06 06:05] LABS: ALBUMIN 2.1 g/dL (3.4-5.0); ALKALINE PHOSPHATASE 75 U/L (46-116); ALT (SGPT) 17 U/L (10-68); BILIRUBIN - TOTAL 0.51 mg/dL (0.2-1.3); CALC OSMOLALITY 281 mosm/kg (275-300); CALCIUM 8.9 mg/dL (8.5-10.1); CARBON DIOXIDE 28.6 mmol/L (21.0-32.0); CHLORIDE - SERUM 106 mmol/L (98-107); CREATININE - SERUM 0.8 mg/dL (0.6-1.3); GLUCOSE 96 mg/dL (74-106); PROTEIN - SERUM 5.7 g/dL (6.4-8.2); SODIUM 141 mmol/L (136-145); UREA NITROGEN 14 mg/dL (7-18); eGFR NON AFRICAN AMERICAN 77 mL/min (90-120)
--- NOTE | 2016-05-06 07:25 | NUR ---
PATIENT RECEIVED IN MID SHAFFER POSITION RESTING QUIETLY. RESPIRATIONS EVEN AND UNLABORED. SIDE RAILS UP X2. BED IN LOW POSITION. CALL LIGHT IN REACH.
[2016-05-06 08:22] VITALS: BP 158/61
--- NOTE | 2016-05-06 09:05 | NUR ---
PATIENT ALERT IN BED EATING BREAKFAST. TOLERATING WELL. SCHEDULED MEDICATION ADMINISTERED. NORCO PER PRN ORDER. DENIES NEEDS. SIDE RAILS UP X2. BED IN LOW POSITION. CALL LIGHT IN REACH.
--- NOTE | 2016-05-06 10:35 | NUR ---
DRESSING TO ABD WOUND CHANGED PER ORDER. WELL TOLERATED. DENIES NEEDS. SIDE RAILS UP X2. BED IN LOW POSITION. CALL LIGHT IN REACH.
--- NOTE | 2016-05-06 11:00 | NUR ---
ALERT IN BED. SCHEDULED MEDICATION ADMINISTERED. SIDE RAILS UP X2. BED IN LOW POSITION. CALL LIGHT IN REACH.
[2016-05-06 12:31] VITALS: BP 156/81
--- NOTE | 2016-05-06 14:30 | NUR ---
PATIENT IN MID SHAFFER POSITION RESTING WITH EYES CLOSED. RESPIRATIONS EVEN AND UNLABORED. SIDE RAILS UP X2. BED IN LOW POSITION. CALL LIGHT IN REACH.
[2016-05-06 15:47] VITALS: BP 188/68
--- NOTE | 2016-05-06 19:25 | NUR ---
PATIENT ALERT IN HIGH SHAFFER POSITION WATCHING TV. NO SIGNS OF DISTRESS NOTED. SIDE RAILS UP X2. BED IN LOW POSITION. CALL LIGHT IN REACH.
[2016-05-06 20:00] VITALS: BP 185/76
--- NOTE | 2016-05-06 22:30 | NUR ---
PATIENT AWAKE, ALERT AND ORIENTED X'S 4. RESPIRATIONS ARE EVEN AND UNLABORED. ASSISTED PATIENT GETTING BED ADJUSTED. PATIENT DENIES FURTHER NEEDS AT THIS TIME. BED IN LOWEST POSITION, CALL LIGHT IN REACH. BED RAILS UP X'S 2.
[2016-05-07] VITALS: BP 167/60
[2016-05-07 04:00] VITALS: BP 145/69
[2016-05-07 06:03] LABS: BASOPHILS 0.2 % (0.0-2.0); EOSINOPHILS 4.2 % (0-7); HEMATOCRIT 29.4 % (36.0-48.0); IMMATURE GRANULOCYTES 1.1 % (0-5); LYMPHOCYTES 18.6 % (15-50); MCH 25.2 pg (26.0-34.0); MCHC 30.6 g/dL (31.0-37.0); MCV 82.4 fL (80.0-100.0); MEAN PLATELET VOLUME 9.6 fL (7.4-10.4); MONOCYTES 8.8 % (2-11); NEUTROPHILS 67.1 % (40-80); PLATELET COUNT 308 10x3/uL (130-400); RBC 3.57 10x6/uL (4.00-5.40); RDW 16.8 % (11.5-14.5); WBC 6.4 10x3/uL (4.8-10.8)
[2016-05-07 06:32] LABS: ALBUMIN 2.1 g/dL (3.4-5.0); ALKALINE PHOSPHATASE 77 U/L (46-116); ALT (SGPT) 16 U/L (10-68); CALC OSMOLALITY 280 mosm/kg (275-300); CALCIUM 8.3 mg/dL (8.5-10.1); CARBON DIOXIDE 30.9 mmol/L (21.0-32.0); CHLORIDE - SERUM 103 mmol/L (98-107); CREATININE - SERUM 0.8 mg/dL (0.6-1.3); GLUCOSE 89 mg/dL (74-106); POTASSIUM - SERUM 4.2 mmol/L (3.5-5.1); PROTEIN - SERUM 4.9 g/dL (6.4-8.2); SODIUM 141 mmol/L (136-145); UREA NITROGEN 16 mg/dL (7-18); eGFR NON AFRICAN AMERICAN 77 mL/min (90-120)
[2016-05-07 08:19] VITALS: BP 181/81
[2016-05-07 12:42] VITALS: BP 164/74
--- NOTE | 2016-05-07 13:43 | NUR ---
CM REASSESSMENT NOTE: PATIENT IS DISCHARGING TODAY HOME WITH [facility] WHICH SHE SIGNED THE [facility]ANNESA FORM. PATIENTS DAUGHTER WILL BE DRIVING HER HOME AT DISCHARGE.
[2016-05-07] MEDS ORDERED: ANUSOL-HC 2.5%30 GM RC (14:18)
[2016-05-07] MEDS ORDERED: ANUSOL-HC25 MG RC (14:19)
[2016-05-07] MEDS ORDERED: AUGMENTIN 875-11 TAB PO (14:21)
--- NOTE | 2016-05-07 15:55 | NUR ---
MIDLINE CATHETER REMOVED FROM LEFT ARM AND OPSITE APPLIED WITH BIOPATCH. DISCHARGED PER WITH PERSONAL BELONGINGS
== END 2016-05-07 15:56 | disposition home health service (06) | DRG 919 ==
LOC: D.ER 06:29 → D.MS 08:20 → D.ICU 08:20 → D.MS 05-02 16:23
PROVIDERS: Emergency Medicine; Family Medicine; Internal Medicine Gastroenterology; Student in an Organized Health Care Education/Training Program; ADMIT Family Medicine Adult Medicine
DX: N99.820 Postprocedural hemorrhage of a genitourinary system organ or structure following a genitourinary system procedure (principal); I21.4 Non-ST elevation (NSTEMI) myocardial infarction; T81.4XXA Infection following a procedure, initial encounter; D62 Acute posthemorrhagic anemia; Z68.43 Body mass index [BMI] 50.0-59.9, adult; N99.842 Postprocedural seroma of a genitourinary system organ or structure following a genitourinary system procedure; I25.10 Atherosclerotic heart disease of native coronary artery without angina pectoris; I35.0 Nonrheumatic aortic (valve) stenosis; I10 Essential (primary) hypertension; E03.9 Hypothyroidism, unspecified; C54.1 Malignant neoplasm of endometrium; K21.9 Gastro-esophageal reflux disease without esophagitis; E66.01 Morbid (severe) obesity due to excess calories

== ENCOUNTER → 2016-06-30 14:10 | Outpatient (CLI) | payer MEDICARE ==
[2016-05-01 14:27] VITALS: BMI 53.2
[~2016-06-30 14:10] MED LIST changes: +ANUSOL-HC 2.5%30 GM RC; +ANUSOL-HC25 MG RC; +AUGMENTIN 875-11 TAB PO; +BAYER CHEWABLE81 MG PO; +COLACE100 MG PO; +COZAAR50 MG PO; +GENASYME80 MG PO; +IBUPROFEN800 MG PO; +LOVENOX40 MG/0.4 SC; +METOPROLOL TART25 MG PO; +PERCOCET 5-3251 TAB PO; +PROZAC40 MG PO; +ULTRAM50 MG PO
[2016-06-30 14:50] LABS: HEMATOCRIT 38.6 % (36.0-48.0)
== END | disposition home or self-care (01) ==
LOC: D.LABREF 14:10
PROVIDERS: Family Medicine Adult Medicine
DX: D62 Acute posthemorrhagic anemia (principal); N99.820 Postprocedural hemorrhage of a genitourinary system organ or structure following a genitourinary system procedure

== ENCOUNTER → 2018-06-13 10:04 | Outpatient (CLI) | payer MEDICARE, MEDICAID ==
[2016-05-01 14:27] VITALS: BMI 53.2
[2018-06-13 11:51] LABS: % SATURATION 16 % (15-55); IRON 57 ug/dl (35-150); TOTAL IRON BIND CAPACITY 339 ug/dl (260-445); UNSAT IRON BIND CAPACITY 282 ug/dl (150-375)
[2018-06-13 12:02] LABS: ALBUMIN 3.4 g/dL (3.4-5.0); BILIRUBIN - DIRECT 0.14 mg/dL (0.00-0.30); BILIRUBIN - INDIRECT 0.47 mg/dL (0.00-1.00); BILIRUBIN - TOTAL 0.61 mg/dL (0.2-1.3); CHOL - HDL RATIO 4.1 ratio (2.3-4.1); LDL-HDL RATIO 2.1 ratio (1.5-3.5); PROTEIN - SERUM 6.6 g/dL (6.4-8.2)
[2018-06-13 12:17] LABS: INR 1.1 (0.85-1.17); PROTIME 13.7 SECONDS (11.6-15.0)
[2018-06-14 12:17] LABS: ANA REFLEX - DIRECT Negative (Negative)
[2018-06-14 13:15] LABS: HEPATITIS C ANTIBODY <0.1 S/CO RAT (0.0-0.9)
[2018-06-15 14:18] LABS: MITOCHONDRIAL ANTIBODY <20.0 Units (0.0-20.0); SMOOTH MUSCLE ABS (ACTIN) 4 Units (0-19)
== END | disposition home or self-care (01) ==
LOC: D.CT 10:04
PROVIDERS: Internal Medicine Gastroenterology
DX: R16.2 Hepatomegaly with splenomegaly, not elsewhere classified (principal); R12 Heartburn; K80.20 Calculus of gallbladder without cholecystitis without obstruction; R93.89 Abnormal findings on diagnostic imaging of other specified body structures

== ENCOUNTER 2018-07-14 06:55 | Outpatient (CLI) | payer MEDICARE, MEDICAID ==
[~2018-07-14] VITALS: Ht 167.6 cm; Wt 152.3 kg
[2018-07-14 07:26] LABS: BASOPHILS 0.3 % (0-2); EOSINOPHILS 5.6 % (0-7); HEMATOCRIT 39.8 % (36.0-48.0); HEMOGLOBIN 13.1 g/dL (12-16); IMMATURE GRANULOCYTES 0.3 % (0-5); LYMPHOCYTES 31.4 % (15-50); MCH 27.4 pg (26.0-34.0); MCHC 32.9 g/dL (31.0-37.0); MCV 83.3 fL (80.0-100.0); MEAN PLATELET VOLUME 9.5 fL (7.4-10.4); MONOCYTES 9.7 % (2-11); NEUTROPHILS 52.7 % (40-80); PLATELET COUNT 143 10x3/uL (130-400); RBC 4.78 10x6/uL (4.00-5.40); RDW 13.5 % (11.5-14.5); WBC 5.8 10x3/uL (4.8-10.8)
[2018-07-14 07:27] LABS: INR 1.08 (0.85-1.17); PROTIME 13.5 SECONDS (11.6-15.0)
[2018-07-14 07:28] LABS: ANION GAP 12.9 mmol/L (8-16); CALCIUM 8.8 mg/dL (8.5-10.1); CARBON DIOXIDE 27.8 mmol/L (21.0-32.0); CREATININE - SERUM 0.9 mg/dL (0.6-1.3); POTASSIUM - SERUM 3.7 mmol/L (3.5-5.1)
[2018-07-14] MEDS ORDERED: TRAZODONE HYDROCHLOR (07:56)
[2018-07-14 08:10] VITALS: BP 169/76; Ht 167.6 cm; Wt 152.3 kg
--- NOTE | 2018-07-14 08:14 | NUR ---
IV STARTED WITH A 22G ANGIOCATH IN LEFT WRIST, TOLERATED WELL
--- NOTE | 2018-07-14 11:40 | NUR ---
LEFT WRIST PIV DC'D WITH TIP INTACT. PATIENT BEGINS DRESSING WITH DAUGHTER'S ASSISTANCE
--- NOTE | 2018-07-14 11:55 | NUR ---
DISCHARGE INSTRUCTIONS REVIEWED WITH PATIENT AND DAUGHTER. DISCHARGED HOME VIA WHEELCHAIR TO PRIVATE VEHICLE WITH DAUGHTER
[2018-07-18] MEDS ORDERED: MYRBETRIQ50 MG PO (15:02)
[2018-07-18] MEDS ORDERED: PEPCID40 MG PO (15:02)
[2018-07-18] MEDS ORDERED: HYDROXYZINE HCL50 MG PO (15:02)
[2018-07-18] MEDS ORDERED: ALBUTEROL SULF8.5 GM INH (15:03)
[2018-07-18] MEDS ORDERED: NEURONTIN600 MG PO (15:03)
[2018-07-18] MEDS ORDERED: ABILIFY10 MG PO (15:04)
== END 2018-07-14 11:55 | disposition home or self-care (01) ==
LOC: D.SP 06:55 → D.CT 09:00 → D.SP 11:55
PROVIDERS: Radiology Diagnostic Radiology; ATTEND Internal Medicine Hematology & Oncology
DX: R59.0 Localized enlarged lymph nodes (principal); Z85.42 Personal history of malignant neoplasm of other parts of uterus; E66.01 Morbid (severe) obesity due to excess calories; Z01.812 Encounter for preprocedural laboratory examination

== ENCOUNTER 2018-07-20 06:20 | Day surgery (SDC) | payer MEDICARE, MEDICAID ==
[2018-07-18 16:19] LABS: BASOPHILS 0.3 % (0-2); EOSINOPHILS 4.4 % (0-7); HEMATOCRIT 41.9 % (36.0-48.0); HEMOGLOBIN 13.8 g/dL (12-16); IMMATURE GRANULOCYTES 0.3 % (0-5); LYMPHOCYTES 29.5 % (15-50); MCH 27.7 pg (26.0-34.0); MCHC 32.9 g/dL (31.0-37.0); MCV 84.1 fL (80.0-100.0); MEAN PLATELET VOLUME 9.8 fL (7.4-10.4); MONOCYTES 7.3 % (2-11); NEUTROPHILS 58.2 % (40-80); PLATELET COUNT 157 10x3/uL (130-400); RBC 4.98 10x6/uL (4.00-5.40); RDW 13.6 % (11.5-14.5); WBC 6.2 10x3/uL (4.8-10.8)
[2018-07-18 16:29] LABS: APTT 25.3 SECONDS (22.8-39.4); INR 1.06 (0.85-1.17); PROTIME 13.3 SECONDS (11.6-15.0)
[2018-07-18 16:31] LABS: CALC OSMOLALITY 285 mosm/kg (275-300); CARBON DIOXIDE 25.4 mmol/L (21.0-32.0); CHLORIDE - SERUM 104 mmol/L (98-107); CREATININE - SERUM 0.8 mg/dL (0.6-1.3); GLUCOSE 98 mg/dL (74-106); SODIUM 142 mmol/L (136-145); UREA NITROGEN 22 mg/dL (7-18); eGFR NON AFRICAN AMERICAN 76 mL/min (90-120)
[~2018-07-20] VITALS: Ht 165.1 cm; Wt 153.3 kg
--- NOTE | ~2018-07-20 | OP ---
PATIENT NAME: OLEG ELY MEDICAL RECORD: [id number] :54 LOCATION:D.OPS ADMISSION DATE: SURGEON: TUCKER BARNETT MD DATE OF OPERATION: 07/20/2018 PREOPERATIVE DIAGNOSES: 1. Ventral incisional hernia. 2. Severe morbid obesity. 3. Hypercholesterolemia. 4. Hypertension. 5. Coronary artery disease with history of UT. POSTOPERATIVE DIAGNOSES: 1. Ventral incisional hernia. 2. Severe morbid obesity. 3. Hypercholesterolemia. 4. Hypertension. 5. Coronary artery disease with history of UT. PROCEDURE: Ventral hernia repair with 19.6 x 24.6-cm Ventrio ST mesh. SURGEON: Tucker Barnett MD REPORT OF PROCEDURE: The patient's abdomen was prepped and draped in sterile fashion. A midline incision was made in the lower aspect of the abdomen below the umbilicus. Electrocautery was used to dissect through the subcutaneous tissues and we eventually came to a large hernia sac. This hernia sac contained fatty content and bowel. We opened up the hernia sac and we were able to get into the abdominal cavity. We then excised the hernia sac down to the fascial edges. We freed up the anterior aspect of the fascia using electrocautery by undermining the fatty tissue. We then cleared off any adhesions of the omentum and bowel to the anterior abdominal wall until we had a clear plane for placement of our mesh. On the inferior aspect of the abdomen in the suprapubic region, there was a large fatty clump of tissue. This was dissected off of the posterior aspect of the abdominal wall and pushed down into the pelvis. At no point did we see any injury to the bowel or bladder. We measured out the hernia defect and it was 16 cm in greatest diameter and that was from lengthwise. The 19.6 x 24.6 piece of mesh was inserted into the abdomen in an underlay fashion. This was sutured down on all sides using multiple interrupted 0 Prolenes. The mesh appeared to rest in good position. After we irrigated out the mesh and abdominal wall one more time, then the fascia was closed in the midline using running #1 looped PDS times 2. We had good approximation of the tissue and at the conclusion of the case, we had no evidence of any active bleeding. A 19 flat Edson drain was inserted in the right lower quadrant and the drain was rested in the large subcutaneous cavity. The subcutaneous tissues were reapproximated in the midline using multiple interrupted 3-0 Vicryls. The skin was then closed with hernando and a dressing was applied. COMPLICATIONS: None. CONDITION: Stable. ANESTHESIA: General endotracheal. BLOOD LOSS: 100 mL. OPERATIVE REPORT [id number] SOLISOLEG M TRANSINT:[id number] Voice Confirmation ID: [id number] DOCUMENT ID: [id number] TUCKER BARNETT MD CC: MARCE OV MD [id number] DICTATION DATE: 07/20/18 1022 PONY EDGER: 07/20/18 1042 [facility] [address] [place] [address]
[~2018-07-20 06:20] MED LIST changes: +ABILIFY10 MG PO; +ALBUTEROL SULF8.5 GM INH; +HYDROXYZINE HCL50 MG PO; +MYRBETRIQ50 MG PO; +PEPCID40 MG PO; +TRAZODONE HYDROCHLOR
[2018-07-20] MEDS ORDERED: NORVASC5 MG PO (06:34)
[2018-07-20 06:41] VITALS: BP 162/60; Ht 165.1 cm; Wt 153.3 kg
[2018-07-20] MEDS ORDERED: HYDROCODON-ACE1 EA10 PO (10:13)
[2018-07-20] MEDS ORDERED: CYCLOBENZAPRINE10 MG PO (10:14)
--- NOTE | 2018-07-20 16:00 | NUR ---
CONVERSATION WITH PATIENT AND DAUGHTER ABOUT PATIENT'S ABILITY TO GO HOME, DAUGHTER CONCERNED ABOUT PATIENT GOING HOME CONSIDERING PAIN AND DIFFICULTY WITH TRANSFERRING FROM BED TO WHEELCHAIR. PATIENT STATES DIFFICULTY IN TRANSFERING DUE TO PAIN. PAIN MED GIVEN. UPDRAFT ORDER OBTAINED. DAUGHTER LEAVING FOR A LITTLE WHILE, WILL REASSESS DISCHARGE PLAN AFTER PAIN MED
--- NOTE | 2018-07-20 18:00 | NUR ---
PATIENT HAS TRANSFERRED INDEPENDENTLY FROM WHEELCHAIR TO TOILET, VOIDED MODERATE AMOUNT IN TOILET. DISCUSSION WITH DAUGHTER AND PATIENT ABOUT DISCHARGE PLAN, PATIENT AND DAUGHTER AGREEABLE WITH DISCHARGE HOME. PATIENT HAS WHEELCHAIR AT HOME, THIS IS HER USUAL MODE OF MOBILITY. DAUGHTER CANNOT STAY WITH PATIENT BUT WILL CHECK ON HER OFTEN BY PHONE AND CHECK ON HER TOMORROW IN PERSON. PATIENT EXHIBITS PROFICIENCY IN EMPTYING ALMA DRAIN. DAUGHTER ASSISTING PATIENT TO DRESS IN PERSONAL CLOTHING. LEFT AC PIV DC'D WITH TIP INTACT 1814 DISCHARGE INSTRUCTIONS REVIEWED WITH PATIENT AND DAUGHTER. PATIENT AND DAUGHTER UNDERSTAND THAT PATIENT IS TO RETURN OR TO CALL AMBULANCE IF UNABLE TO TRANSFER SELF AT HOME OR ANY CHANGES IN CONDITION
--- NOTE | 2018-07-20 18:15 | NUR ---
DISCHARGED HOME VIA WHEELCHAIR TO PRIVATE VEHICLE WITH DAUGHTER
== END 2018-07-20 18:15 | disposition home or self-care (01) ==
LOC: D.OPS 06:20 → D.PAN 09:00 → D.OPS 18:15
PROVIDERS: Anesthesiology; ATTEND Surgery
DX: K43.2 Incisional hernia without obstruction or gangrene (principal); E66.01 Morbid (severe) obesity due to excess calories; E78.00 Pure hypercholesterolemia, unspecified; I10 Essential (primary) hypertension; I25.10 Atherosclerotic heart disease of native coronary artery without angina pectoris; Z01.812 Encounter for preprocedural laboratory examination

== ENCOUNTER 2018-07-21 19:35 | Inpatient (IN) | payer MEDICARE, MEDICAID ==
[~2018-07-21] VITALS: Ht 165.1 cm; Wt 149.7 kg
[~2018-07-21 19:35] MED LIST changes: +CYCLOBENZAPRINE10 MG PO; +HYDROCODON-ACE1 EA10 PO; +NORVASC5 MG PO
--- NOTE | 2018-07-21 19:44 | NUR ---
PT HAS ABD BINDER IN PLACED WITH A BULB DRAIN COMING OUT OF THE TOP, SEROSANGUINEOUS FLUID NOTED IN BULB
[2018-07-21 21:04] LABS: BASOPHILS 0.1 % (0-2); EOSINOPHILS 0.2 % (0-7); HEMOGLOBIN 10.8 g/dL (12-16); IMMATURE GRANULOCYTES 0.4 % (0-5); LYMPHOCYTES 22.5 % (15-50); MCH 27.5 pg (26.0-34.0); MCHC 32.7 g/dL (31.0-37.0); MEAN PLATELET VOLUME 10.3 fL (7.4-10.4); MONOCYTES 11.8 % (2-11); PLATELET COUNT 171 10x3/uL (130-400); RBC 3.93 10x6/uL (4.00-5.40); WBC 10.3 10x3/uL (4.8-10.8)
[2018-07-21 21:17] LABS: ALBUMIN 3.2 g/dL (3.4-5.0); ANION GAP 14.3 mmol/L (8-16); BILIRUBIN - TOTAL 0.45 mg/dL (0.2-1.3); CALCIUM 8.3 mg/dL (8.5-10.1); CARBON DIOXIDE 24.5 mmol/L (21.0-32.0); CREATININE - SERUM 1.4 mg/dL (0.6-1.3); POTASSIUM - SERUM 4.8 mmol/L (3.5-5.1); PROTEIN - SERUM 5.9 g/dL (6.4-8.2)
[2018-07-21 22:43] VITALS: BP 130/48; BMI 55.0
[2018-07-21 23:47] VITALS: BP 130/48
[2018-07-22 04:00] VITALS: BP 141/66
--- NOTE | 2018-07-22 08:30 | NUR ---
PT RESTING IN BED WITH EYES CLOSED. NO ACUTE DISTRESS NOTED. OPENS EYES WITH NAME CALLED. SALINE LOC NOTED TO RIGHT FOREARM INTACT, WITHOUT REDNESS OR EDEMA. ALMA DRAIN TO RIGHT LOWER ABDOMEN WITH BLOOD TINGED DRAINAGE. DENIES FURTHER NEEDS AT THIS TIME. CL WITHIN REACH. ENCOURAGED TO CALL WITH NEEDS. CONTINUE POC
[2018-07-22 08:44] VITALS: BP 121/54
[2018-07-22 12:18] LABS: BASOPHILS 0.3 % (0-2); EOSINOPHILS 1.5 % (0-7); HEMATOCRIT 30.3 % (36.0-48.0); HEMOGLOBIN 9.8 g/dL (12-16); IMMATURE GRANULOCYTES 0.4 % (0-5); LYMPHOCYTES 31.1 % (15-50); MCH 27.4 pg (26.0-34.0); MCHC 32.3 g/dL (31.0-37.0); MCV 84.6 fL (80.0-100.0); MEAN PLATELET VOLUME 9.8 fL (7.4-10.4); MONOCYTES 11.9 % (2-11); NEUTROPHILS 54.8 % (40-80); PLATELET COUNT 205 10x3/uL (130-400); RBC 3.58 10x6/uL (4.00-5.40); RDW 14.2 % (11.5-14.5); WBC 11.3 10x3/uL (4.8-10.8)
[2018-07-22 12:28] LABS: % SATURATION 16 % (15-55); IRON 47 ug/dl (35-150); TOTAL IRON BIND CAPACITY 285 ug/dl (260-445); UNSAT IRON BIND CAPACITY 238 ug/dl (150-375)
[2018-07-22 12:32] VITALS: BP 154/82
[2018-07-22 13:12] LABS: ANION GAP 16.4 mmol/L (8-16); CALCIUM 8.5 mg/dL (8.5-10.1); CARBON DIOXIDE 24.3 mmol/L (21.0-32.0); CREATININE - SERUM 1.8 mg/dL (0.6-1.3); POTASSIUM - SERUM 4.7 mmol/L (3.5-5.1)
[2018-07-22 13:55] VITALS: Ht 165.1 cm; Wt 149.7 kg
[2018-07-22 17:14] VITALS: BP 120/52
[2018-07-22 19:41] VITALS: BP 93/46
[2018-07-23 00:02] VITALS: BP 93/45
--- NOTE | 2018-07-23 02:48 | NUR ---
URINE COLLECTED BY STRAIGHT CATH, PT REQUESTS A JOYCE TO BE PLACED BECAUSE OF INCONTINENCE, 600ML RETURNED IN CATH BAG
[2018-07-23 02:53] LABS: APPEARANCE CLEAR (CLEAR); BILIRUBIN NEGATIVE (NEGATIVE); COLOR YELLOW (YELLOW); GLUCOSE NEGATIVE (NEGATIVE); KETONE NEGATIVE (NEGATIVE); NITRITE NEGATIVE (NEGATIVE); PROTEIN NEGATIVE (NEGATIVE); UROBILINOGEN NORMAL (NORMAL)
--- NOTE | 2018-07-23 03:48 | NUR ---
I have reviewed this patient and I concur with the Shift Assessment completed by the Licensed Practical Nurse today this shift.
[2018-07-23 04:00] VITALS: BP 117/60
[2018-07-23 06:19] LABS: CALCIUM 8.4 mg/dL (8.5-10.1); CREATININE - SERUM 1.4 mg/dL (0.6-1.3)
[2018-07-23 07:52] LABS: BASOPHILS 0.3 % (0-2); HEMOGLOBIN 8.4 g/dL (12-16); IMMATURE GRANULOCYTES 0.4 % (0-5); MCH 27.1 pg (26.0-34.0); MCHC 31.1 g/dL (31.0-37.0); MEAN PLATELET VOLUME 9.4 fL (7.4-10.4); MONOCYTES 9.9 % (2-11); NEUTROPHILS 51.4 % (40-80); PLATELET COUNT 171 10x3/uL (130-400); RDW 14.5 % (11.5-14.5)
[2018-07-23 07:53] LABS: WBC 7.1 10x3/uL (4.8-10.8)
[2018-07-23 07:54] LABS: MCV 87.1 fL (80.0-100.0)
[2018-07-23 08:44] VITALS: BP 120/51
--- NOTE | 2018-07-23 09:07 | NUR ---
PT SITTING UP IN BED EATING BREAKFAST. NO ACUTE DISTRESS NOTED. O2 @ 2L NC IN PLACE. DENIES PAIN AT THIS TIME. IV TO RIGHT FOREARM INTACT WITH D5LR WITH 20K @ 75ML/HR INFUSING VIA PUMP. SITE WITHOUT REDNESS OR EDEMA. INCISION TO MIDLINE ABDOMEN, RAFFI INTACT WITHOUT DRAINAGE. ALMA DRAIN TO RIGHT LOWER QUAD SCANT BLOODY DRAINAGE. ABDOMINAL BINDER IN PLACE. DENIES FURTHER NEEDS AT THIS TIME. CL WITHIN REACH. ENCOURAGED TO CALL WITH NEEDS. CONTINUE POC
[2018-07-23 13:21] VITALS: BP 129/64
[2018-07-23 17:30] VITALS: BP 102/45
--- NOTE | 2018-07-23 19:15 | NUR ---
RECEIVED REPORT, ASSUMED CARE, CALL LIGHT IN REACH, BED LOWEST POSITION, DENIES NEEDS, COMPLAINED OF SOME HEART BURN, WILL CONTINUE POC
[2018-07-23 20:00] VITALS: BP 101/56
[2018-07-24 04:00] VITALS: BP 137/61
[2018-07-24 06:39] LABS: ANION GAP 9.3 mmol/L (8-16); CALCIUM 8.4 mg/dL (8.5-10.1); CARBON DIOXIDE 30.3 mmol/L (21.0-32.0); POTASSIUM - SERUM 4.6 mmol/L (3.5-5.1)
[2018-07-24 07:22] LABS: BASOPHILS 0.4 % (0-2); HEMATOCRIT 26.2 % (36.0-48.0); HEMOGLOBIN 8.1 g/dL (12-16); IMMATURE GRANULOCYTES 0.7 % (0-5); LYMPHOCYTES 30.3 % (15-50); MCH 26.9 pg (26.0-34.0); MCHC 30.9 g/dL (31.0-37.0); MEAN PLATELET VOLUME 9.7 fL (7.4-10.4); MONOCYTES 10.6 % (2-11); PLATELET COUNT 194 10x3/uL (130-400); RBC 3.01 10x6/uL (4.00-5.40); RDW 14.3 % (11.5-14.5); WBC 7.1 10x3/uL (4.8-10.8)
--- NOTE | 2018-07-24 07:30 | NUR ---
PT RESTING IN BED, EYES OPEN. PT ALERT AND ORIENTED. NO C/O PAIN. NO S/S OF ACUTE DISTRESS NOTED. ALMA DRAIN TO RIGHT LOWER QUADRANT, BLOODY DRAINAGE. PT UP WITH ASSIST TO BEDSIDE COMMODE. PT INCONTINENT AT TIMES OF BOWEL AND BLADDER. MIDLINE INCISION TO ABDOMEN, OPEN TO AIR, RAFFI PRESENT. PT DENIES ANYTHING FURTHER AT THIS TIME. CALL LIGHT IN REACH. WILL CONTINUE TO MONITOR.
[2018-07-24 09:20] VITALS: BP 124/63
[2018-07-24 13:59] VITALS: BP 136/95
[2018-07-24] MEDS ORDERED: MIRALAX17 GM PO (14:11)
[2018-07-24] MEDS ORDERED: PROTONIX40 MG PO (14:11)
[2018-07-24] MEDS ORDERED: VENTOLIN HFA [SP] INH (14:12)
--- NOTE | 2018-07-24 15:31 | NUR ---
I have reviewed this patient and I concur with the Shift Assessment completed by the Licensed Practical Nurse today this shift.
--- NOTE | 2018-07-24 16:03 | MORECARE ---
CASE MANAGEMENT DISCHARGE SUMMARY PATIENT: OLEG ELY UNIT: [id number] ADM DATE: 07/23/18 AGE: 67 : 54 SEX: F ROOM/BED: D.2236 AUTHOR: SIGRIDDOC PHYSICIAN: REFERRING PHYSICIAN: ADORE COBOS MD DATE OF SERVICE: 07/24/18 Discharge Plan Patient Name: OLEG ELY Facility: [facility]:[place] : 1950 Planned Disposition: Home with Home Health Anticipated Discharge Date: 07/24/18 Discharge Date: Expected LOS: 1 Initial Reviewer: [email or web address] Initial Review Date: 07/24/2018 Generated: 07/24/18 5:03 pm Comments DCP- Discharge Planning Updated by [email or web address]: Love Guzman on 07/24/18 3:[address] Patient Name: OLEG ELY Admission Status: ER Accout number: [id number] Admission Date: 07-23-2018 : 1950 Admission Diagnosis:OTHER ACUTE POSTPROCEDURAL PAIN Attending: ADORE COBOS Current LOS: 1 Anticipated DC Date: 07-24-2018 Planned Disposition: Home with Home Health Primary Insurance: [facility] MEDICARE SOLUTIONS Discharge Planning Comments: CM met with patient and her neighbor (Selma Singh) to discuss discharge planning/needs. She lives alone at the [facility]. Selma states she is her neighbor and will help care for her. She also has private duty help with her meals, cleaning and transportation. Her neighbor is taking her home (she states she has her brother in law's electric wc to take her home in and to use until hers in fixed. She has already called [facility] and they are going to help her or come out to fix her WC. I discussed availability of rehab, SNF, additional DME and home health. She declines need for DME or rehab (was recently in [facility]). VANNESA for [facility] signed. I called and spoke to Jennifer and Jennifer has come to the hospital and picked up her packet. Home today with [facility]. Senior Technical Writer: Love Guzman DCPIA - Discharge Planning Initial Assessment Updated by [email or web address]: Love Guzman on 07/24/18 3:59 pm * Is the patient Alert and Oriented? Yes * How many steps to enter\\exit or inside your home? 0/0 * PCP Dr. Fisher * Pharmacy [facility] on [facility] * Preadmission Environment Home Alone * ADLs Partial Dependent * Partial ADLs (Assistance needed) Ambulation Bathing * Equipment Other * Other Equipment Electric Wheelchair * List name and contact numbers for known caregivers / representatives who currently or will assist patient after discharge: Selma Singh - [facility] - [phone] Margy Silveira [facility] - [phone] * Verbal permission to speak to the caregivers and representatives has been obtained from the patient. Yes * Community resources currently utilized Private Duty Care * Please name any agencies selected above. "It's all about you" [facility] * Additional services required to return to the preadmission environment? Yes * Can the patient safely return to the preadmission environment? Yes * Has this patient been hospitalized within the prior 30 days at any hospital? Yes Patient Name: OLEG ELY Page [id number] at 1603 All edits/amendments must be made on the electronic document DICTATION DATE: 07/24/18 160 CONTAINER FINISHING INSPECTOR: JEFF 07/24/18 160 RPT#: [id number] DC DATE: STATUS: ADM IN [facility] [address] [place] [address] END OF REPORT
--- NOTE | 2018-07-24 17:09 | NUR ---
PT DISCHARGED HOME WITH FAMILY VIA WHEELCHAIR. PT C/O PAIN, GAVE OXYCODONE. WENT OVER DISCHARGE INSTRUCTIONS WITH PT, DEMONSTRATED HOW TO EMPTY ALMA DRAIN. PT ACKNOWLEDGED INSTRUCTIONS. PT DENIES ANYTHING FURTHER.
[2018-07-25 10:17] LABS: FOLATE (FOLIC ACID) - SERUM 13.9 ng/mL (>3.0)
[2018-07-25] MEDS ORDERED: CYCLOBENZAPRINE10 MG PO (16:07)
== END 2018-07-24 17:10 | disposition home health service (06) | DRG 683 ==
LOC: D.ER 19:35 → D.EDHOLD 20:20 → D.MS 20:20 → OBSVTIME 07-23 14:00 → D.MS 07-23 17:56
PROVIDERS: Emergency Medicine; ADMIT Internal Medicine Nephrology; ATTEND Internal Medicine Nephrology
DX: N17.9 Acute kidney failure, unspecified (principal); Z68.43 Body mass index [BMI] 50.0-59.9, adult; G89.18 Other acute postprocedural pain; E66.01 Morbid (severe) obesity due to excess calories; Z74.09 Other reduced mobility; I10 Essential (primary) hypertension; D64.9 Anemia, unspecified; I25.10 Atherosclerotic heart disease of native coronary artery without angina pectoris; K21.9 Gastro-esophageal reflux disease without esophagitis

== ENCOUNTER 2018-07-25 15:24 | Emergency (ER) | payer MEDICARE, MEDICAID ==
[~2018-07-25] VITALS: Ht 165.1 cm; Wt 150.0 kg
[~2018-07-25 15:24] MED LIST changes: +MIRALAX17 GM PO; +VENTOLIN HFA [SP] INH
[2018-07-25 16:02] VITALS: Ht 165.1 cm; Wt 150.0 kg
[2018-07-25] MEDS ORDERED: CYCLOBENZAPRINE10 MG PO (16:07)
[2018-07-25 22:06] VITALS: BP 118/71
== END 2018-07-25 22:07 | disposition home or self-care (01) ==
LOC: D.ER 15:24
DX: T85.898A Other specified complication of other internal prosthetic devices, implants and grafts, initial encounter (principal)

== ENCOUNTER → 2018-08-02 17:15 | Outpatient (CLI) | payer MEDICARE, MEDICAID ==
[2018-07-25 16:02] VITALS: BMI 55.0
== END | disposition home or self-care (01) ==
LOC: D.LABREF 17:15
PROVIDERS: ATTEND Surgery
DX: Z98.890 Other specified postprocedural states (principal)

== ENCOUNTER 2018-08-15 07:41 | Inpatient (IN) | payer MEDICARE, MEDICAID ==
[~2018-08-15] VITALS: Ht 157.5 cm; Wt 147.8 kg
[2018-08-15] VITALS (16 sets, daily range): BP systolic 103–148; BP diastolic 53–711; BMI 63.2
--- NOTE | 2018-08-15 07:48 | NUR ---
PT INTUBATED BY DR. ABRAHAM WITH 7.5 ETT. 24 AT THE LIP. COLOR CHANGE ON CO2 DETECTOR, BILATERAL BREATH SOUNDS AUSCULTATED.
--- NOTE | 2018-08-15 07:56 | NUR ---
PT SATS DROP TO 79% AFTER INTUBATION. BAGGING INITIATED FOR PT RESPIRATIONS BY RT. SATS INCREASE BACK TO 91%.
--- NOTE | 2018-08-15 08:06 | NUR ---
ETT TUBE ADJUSTED. 27 AT THE LIP. RADIOLOGY AT BEDSIDE TO VERIFY PLACEMENT.
--- NOTE | 2018-08-15 08:12 | NUR ---
CXR #[address] ABRAHAM DECOMPRESSES WITH NEEDLE DECOMPRESSION. RADIOLOGY PERFORMS CXR AFTER NEEDLE PLACED.
--- NOTE | 2018-08-15 08:23 | NUR ---
RIGHT SIDED CHEST TUBE PLACED BY DR. ABRAHAM AT THIS TIME. SUTURED IN PLACE.
--- NOTE | 2018-08-15 08:25 | NUR ---
PLEUR-EVAC SET TO 20 CM H20 OF SUCTION. LOW INTERMITTANT SUCTION APPLIED.
--- NOTE | 2018-08-15 08:35 | NUR ---
PROPOFOL INITIATED FOR PT SEDATION AT 0835 AT RATE OF 30MCG/KG/MIN.
[2018-08-15 08:43] LABS: APTT 25.4 SECONDS (22.8-39.4); INR 1.26 (0.85-1.17); PROTIME 15.2 SECONDS (11.6-15.0)
--- NOTE | 2018-08-15 08:45 | NUR ---
PROPOFOL TITRATED TO 20MCG/KG/MIN FOR BP OF 117/66.
[2018-08-15 08:47] LABS: ALBUMIN 2.6 g/dL (3.4-5.0); ALKALINE PHOSPHATASE 145 U/L (46-116); ALT (SGPT) 19 U/L (10-68); BILIRUBIN - TOTAL 0.46 mg/dL (0.2-1.3); CALC OSMOLALITY 281 mosm/kg (275-300); CALCIUM 8.2 mg/dL (8.5-10.1); CARBON DIOXIDE 17.5 mmol/L (21.0-32.0); CHLORIDE - SERUM 102 mmol/L (98-107); CKMB 1.1 U/L (0.0-3.6); CREATINE KINASE 72 UL (21-215); CREATININE - SERUM 1.3 mg/dL (0.6-1.3); GLUCOSE 275 mg/dL (74-106); POTASSIUM - SERUM 5.2 mmol/L (3.5-5.1); PRO BNP 4054 pg/mL (0-125); SODIUM 136 mmol/L (136-145); UREA NITROGEN 13 mg/dL (7-18); eGFR NON AFRICAN AMERICAN 43 mL/min (90-120)
--- NOTE | 2018-08-15 08:48 | NUR ---
MARTHA GARDNER AT BEDSIDE FOR MIDLINE PLACEMENT.
[2018-08-15 08:51] LABS: TROPONIN-I 0.203 ng/mL (0.000-0.060)
--- NOTE | 2018-08-15 09:01 | NUR ---
PROPOFOL DRIP INCREASED TO 30MCG/KG/MIN D/T PT SEDATION STATUS.
[2018-08-15 09:06] LABS: D-DIMER-QUANTITATIVE 2.12 ug/mLFEU (0.20-0.54)
--- NOTE | 2018-08-15 09:31 | NUR ---
PT LEAVING THE ED AT THIS TIME FOR ORDERED CT, ACCOMPANIED TO MEDICAL IMAGING BY RN, AND RT
[2018-08-15 10:07] LABS: BASOPHILS 0.1 % (0-2); EOSINOPHILS 0.1 % (0-7); HEMATOCRIT 28.9 % (36.0-48.0); IMMATURE GRANULOCYTES 0.6 % (0-5); LYMPHOCYTES 4.7 % (15-50); MCH 25.4 pg (26.0-34.0); MCHC 31.1 g/dL (31.0-37.0); MCV 81.4 fL (80.0-100.0); MEAN PLATELET VOLUME 8.5 fL (7.4-10.4); MONOCYTES 7.5 % (2-11); PLATELET COUNT 260 10x3/uL (130-400); RBC 3.55 10x6/uL (4.00-5.40); RDW 15.2 % (11.5-14.5); WBC 16.6 10x3/uL (4.8-10.8)
--- NOTE | 2018-08-15 11:29 | NUR ---
OG TUBE INSERTED IN ED AND CONNECTED TO LOW INTERMITTENT SUCTION AFTER PT WAS INTUBATED.
--- NOTE | 2018-08-15 11:35 | NUR ---
PT RECEIVED FROM ER AT THIS TIME. VSS. BP 137/78 LEVOPHED DPP D.C'D AT THIS TIME. O2 VIA VENT REFER TO FLOW SHEET FOR SETTINGS. O2 SAT 98%. PT ANXIOUS AGGITATED PROPOFOL ADM PER LUDMILA SCALE. RESTRAINTS ON FROM ER, SECURED TO BED APPROPRIATELY REFER TO FLOW SHEET. DR WHITTINGTON GIVEN UPDATE. VSS. WILL CONTINUE TO MONITOR
--- NOTE | 2018-08-15 11:35 | NUR ---
PT RECEIVED. VSS. PT 137/[address] COBOS NOTIFIED. WILL CONTINUE TO MONITOR
--- NOTE | 2018-08-15 12:40 | NUR ---
DR DANG AT BEDSIDE. GIVEN UDPATE. NEW ORDERS RECIEVED.
[2018-08-15 13:58] LABS: CKMB 3.1 U/L (0.0-3.6); CREATINE KINASE 82 UL (21-215)
[2018-08-15 13:59] LABS: TROPONIN-I 0.975 ng/mL (0.000-0.060)
--- NOTE | 2018-08-15 14:09 | NUR ---
ORAL ENDOTRACH CARE ADM. VSS. NO NEW CHANGES WILL CONTINUE TO MONITOR
--- NOTE | 2018-08-15 14:26 | NUR ---
RADIOLOGY WITH ECHO AT BEDSIDE
--- NOTE | 2018-08-15 15:20 | NUR ---
REASSESSMENT COMPLETE, NO CHANGES NOTED, PT SEDATED ON VENT, VSS, WILL CON'T TO MONITOR
--- NOTE | 2018-08-15 17:20 | NUR ---
NO VISITORS AT THIS TIME, WILL CON'T TO MONITOR
[2018-08-15 20:17] LABS: CKMB 3.6 U/L (0.0-3.6); CREATINE KINASE 172 UL (21-215)
[2018-08-15 20:18] LABS: TROPONIN-I 0.921 ng/mL (0.000-0.060)
--- NOTE | 2018-08-15 21:00 | NUR ---
RESTING WITH EYES CLOSED. ETT INTACT/SECURE PATENT CONNECTED TO [facility] VENT WITH SETTINGS OREDERED. VSS.
--- NOTE | 2018-08-15 22:30 | NUR ---
PT AWAKE, BANGING HANDS ON SIDE RAILS. ANXIOUS. PT REASSURED AND CALMED. ANSWERS QUESTIONS WITH YES OR NO NOD OF HEAD. ABLE TO WRITE A POTENTIAL FAMILY MEMBERS PHONE NUMBER DOWN WITH ASSIST FROM RN. PHONE NUMBER ATTEMPTED WITH NO ANSWER AND MESSAGE LEFT TO PLEASE RESPOND. VSS. CALL LIGHT IN REACH.
--- NOTE | 2018-08-15 23:00 | NUR ---
REPORT RECEIVED. RECEIVED PT IN BED. SEDATED. OPENS. EYES TO VERBAL STIMULI. ETT INTACT/SECURE/PATENT CONNECTED TO [facility] VENT WITH SETTINGS ORDERED. HOB ELEVATED [address]ES. VAP PROTOCOL IN PLACE. OGT INTACT/SECURE AND PATENT TO LIT SUCTION, DRAINING SMALL AMOUNT OF LIGHT GREEN STOMACH CONTENT. MONITORS CONNECTED TO PATIENT WITH ALARMS SET. VSS. NO ACUTE DISTRESS OBSERVED AT PRESENT. CHEST TUBE TO RT CHEST INTACT/SECURE AND PATENT CONNECTED TO 20 CM SUCTION, PLACED BELOW PATIENT. DRAINING SMALL AMOUNT OF BRIGHT RED BLOOD INTO COLLECTION CHAMBER. RESP EVEN AND UNLABORED. LUNG SOUNDS WITH CRACKLES AUSC BUL DIMINISHED BLL. SR UP X 2
--- NOTE | 2018-08-15 23:00 | NUR ---
REASSESSMENT COMPLETED WITH NO CHANGES OR ACUTE DISTRESS OBSERVED. ETT INTACT/PATENT CONNECTED TO [facility] VENT WITH SETTINGS ORDERD. OGT INTACT/PATENT/SECURE. HOB UP 40 DEGREES. CX TUBE TO RT SIDE INTACT/ SECURED. CONNECTED TO 20CM SX, BELOW LEVEL OF PATIENT DRAINING SMALL AMOUNT OF SEROSANGUINEOUS FLUID INTO COLLECTION CHAMBER. VSS.
[2018-08-16] VITALS (24 sets, daily range): BP systolic 126–165; BP diastolic 59–80; BMI 62.5
[2018-08-16 01:00] LABS: CKMB 3.1 U/L (0.0-3.6); CREATINE KINASE 182 UL (21-215)
--- NOTE | 2018-08-16 01:00 | NUR ---
RESTING QUIETLTY WITH EYES CLOSED. ROUSES TO VERBAL STIMULI. VSS. NO DISTRESS OBSERVED.
[2018-08-16 01:07] LABS: TROPONIN-I 1.043 ng/mL (0.000-0.060)
--- NOTE | 2018-08-16 05:00 | NUR ---
VSS. NO CHANGES OR ACUTE DISTRESS OBSERVED.
[2018-08-16 05:17] LABS: BASOPHILS 0.1 % (0-2); EOSINOPHILS 0.7 % (0-7); HEMATOCRIT 25.6 % (36.0-48.0); HEMOGLOBIN 8.1 g/dL (12-16); IMMATURE GRANULOCYTES 0.5 % (0-5); LYMPHOCYTES 11.3 % (15-50); MCH 25.2 pg (26.0-34.0); MCHC 31.6 g/dL (31.0-37.0); MCV 79.5 fL (80.0-100.0); MEAN PLATELET VOLUME 9.3 fL (7.4-10.4); MONOCYTES 7.2 % (2-11); NEUTROPHILS 80.2 % (40-80); PLATELET COUNT 238 10x3/uL (130-400); RBC 3.22 10x6/uL (4.00-5.40); RDW 15.2 % (11.5-14.5)
[2018-08-16 05:20] LABS: WBC 10.6 10x3/uL (4.8-10.8)
[2018-08-16 05:50] LABS: ALBUMIN 2.3 g/dL (3.4-5.0); ALKALINE PHOSPHATASE 115 U/L (46-116); ALT (SGPT) 17 U/L (10-68); BILIRUBIN - TOTAL 0.56 mg/dL (0.2-1.3); CALCIUM 8.2 mg/dL (8.5-10.1); CHLORIDE - SERUM 103 mmol/L (98-107); CKMB 2.5 U/L (0.0-3.6); CREATINE KINASE 179 UL (21-215); CREATININE - SERUM 1.1 mg/dL (0.6-1.3); MAGNESIUM - SERUM 1.9 mg/dL (1.8-2.4); PHOSPHOROUS 3.9 mg/dL (2.5-4.9); PROTEIN - SERUM 5.1 g/dL (6.4-8.2); SODIUM 139 mmol/L (136-145); UREA NITROGEN 14 mg/dL (7-18); eGFR NON AFRICAN AMERICAN 53 mL/min (90-120)
[2018-08-16 05:53] LABS: CALC OSMOLALITY 279 mosm/kg (275-300); CARBON DIOXIDE 26.4 mmol/L (21.0-32.0); GLUCOSE 115 mg/dL (74-106); POTASSIUM - SERUM 3.9 mmol/L (3.5-5.1); TROPONIN-I 0.879 ng/mL (0.000-0.060)
--- NOTE | 2018-08-16 06:18 | NUR ---
RECEIVED PHONE CALL FROM PATIENTS DAUGHTER, LEIGHA WILSON UPDATE GIVEN. UNABLE TO GIVE THIS RN ANY MEDICAL HX BUT IS GOING TO CONTACT OTHER FAMILY AND UPDATE KELLIE.
--- NOTE | 2018-08-16 07:20 | NUR ---
REPORT RECEIVED. ASSESSMENT COMPLETE PER FLOW SHEET. VSS. PT RESTING COMFORTABLY WILL CONTINUE TO MONITOR
--- NOTE | 2018-08-16 09:13 | NUR ---
SPOKE WITH YEN FIERRO OVER PHONE PT HOME MEDICATIONS RECIEVED AND REVIEWED. STATED PT USES DR VO, DR PALOMINO, AND DR WARREN CURRENTLY FOR CARE. WILL UPDATE DR COBOS.
--- NOTE | 2018-08-16 10:22 | NUR ---
LATE ENTRY FOR 08/15/18. PT WAS PLACED IN BILATERAL SOFT WRIST RESTRAINTS PER LINE PROTECTION FOLLOWING INTUBATION. THIS NURSE RECEIVED ORDER TO DO SO PER EDP DR. ABRAHAM. RESTRAINT PAPERWORK COMPLETED BY THIS NURSE. PT WAS PLACED IN RESTRAINTS AT 0800 AND REMAINED IN RESTRAINTS WHEN SHE LEFT THE ED AND WAS TRANSPORTED TO ICU AT APPROX. 1120. RESTRAINT FORM PLACED ON PT'S ED CHART. PLEASE SEE RESTRAINT RECORD FOR FURTHER INFORMATION.
--- NOTE | 2018-08-16 10:40 | NUR ---
DR COBOS AT BEDSIDE. GIVEN UDPATE.
--- NOTE | 2018-08-16 11:14 | NUR ---
DR DANG AT BEDSIDE. GIVEN UPDATE. NEW ORDERS RECIEVED
--- NOTE | 2018-08-16 11:17 | NUR ---
REASSESSMNET COMPLETE PER FLOW SHEET. VSS. NO NEW CHANGES WILL CONTINUE TO MONITOR
--- NOTE | 2018-08-16 12:10 | NUR ---
COMPLETE BB LINEN CHANGE ADM. VSS ORAL CARE ADM WILL CONTINUE TO MONITOR
--- NOTE | 2018-08-16 13:40 | NUR ---
DR DANG CALLED GIVEN UPDATE. NEW ORDERS RECEIVED. ADM.
--- NOTE | 2018-08-16 15:00 | NUR ---
REASSESSMENT COMPLETE PER FLOW SHEET. VSS. NO NEW CHANGES WILL CONTINUE TO MONITOR
--- NOTE | 2018-08-16 16:12 | NUR ---
FAMILY CALLED GIVEN UPDATE.
--- NOTE | 2018-08-16 16:40 | MORECARE ---
CASE MANAGEMENT DISCHARGE SUMMARY PATIENT: OLEG ELY UNIT: [id number] ADM DATE: 08/15/18 AGE: 67 : 52 SEX: F ROOM/BED: D.[facility] AUTHOR: CRISTHIAN MATTA PHYSICIAN: REFERRING PHYSICIAN: ADORE COBOS MD DATE OF SERVICE: 08/16/18 Discharge Plan Patient Name: OLEG ELY [facility] [facility] 1950 Planned Disposition: Anticipated Discharge Date: Discharge Date: Expected LOS: Initial Reviewer: [email or web address] Initial Review Date: 08/15/2018 Generated: 08/16/18 5:39 pm Comments DCP- Discharge Planning Updated by [email or web address]: Deedee Seals on 08/16/18 3:[address] CM attempted to visit with patient regarding discharge planning/ needs. Patient currently on vent no family available. CM will continue to follow and assist as needed with discharge planning / needs Patient Name: OLEG ELY Page [phone] at 1640 All edits/amendments must be made on the electronic document DICTATION DATE: 08/16/181638 SECURITY SYSTEMS ENGINEER: JEFF 08/16/181638 RPT#: [id number] DC DATE: STATUS: ADM IN [facility] [address] [place] [address] END OF REPORT
--- NOTE | 2018-08-16 17:00 | NUR ---
family at bedside. given update.
--- NOTE | 2018-08-16 18:09 | NUR ---
ORAL ENDOTRACH CARE ADM. REPOSITIONED ON L SIDE. NEEDS MET VSS WILL CONTINUE TO MONITOR
--- NOTE | 2018-08-16 19:00 | NUR ---
REPORT RECEIVED. RECEIVED PT IN BED. SEDATED/INTUBATED. ETT INTACT/SECURE/ PATENT CONNECTED TO [facility] VENT WITH SETTINGS ORDERED. CX TUBE TO RT LATERAL CX INTACT/SECURE/PATENT CONNECTED TO 20CM SX, BELOW LEVEL OF PATIENT. RESP EVEN. COARSE BREATH SOUNDS AUSC BILAT UPPER AND LOWER LOBES. OGT INTACT/SECURE AND PATENT WITH TUBE FEEDING INFUSING @ 10ML/HR AR PUMP. HOB ELEVATED 40 DEGREES. VAP PROTOCOL INTACT. MONITORS CONNECTED TO PATIENT WITH ALARMS SET. VSS. SHIFT ASSESSMENT COMPLETED PER FLOW SHEET WITH NO ACUTE DISTRESS OBSERVED AT PRESENT.
--- NOTE | 2018-08-16 21:00 | NUR ---
VSS. ORAL CARE PERFORMED. HOB UP 40 DEGREES. ETT SUCTIONED PER INLINE SX.
--- NOTE | 2018-08-16 21:10 | NUR ---
SPOKE WITH DR. PALOMINO. INFORMED OF CONSULT
--- NOTE | 2018-08-16 23:00 | NUR ---
REASSESSMENT COMPLETED PER FLOW SHEET WITH NO CHANGES OBSERVED. VSS. NO ACUTE DISTRESS OBSERVED.
[2018-08-17] VITALS (23 sets, daily range): BP systolic 98–167; BP diastolic 43–76
--- NOTE | 2018-08-17 01:00 | NUR ---
VSS. ORAL CARE PERFORMED. HOB UP 40 DEGREES. NO ACUTE DISTRESS OBSERVED.
--- NOTE | 2018-08-17 03:00 | NUR ---
REASSESSMENT COMPLETED PER FLOW SHEET WITH NO CHANGES OR ACUTE DISTRESS OBSERVED. VSS. ETT INTACT/ SECURED/ PATENT AND [facility] WITH [facility]TINGS ORDERED. ORAL CARE PERFORMED. HOB UP 40 DEGREES
[2018-08-17 04:52] LABS: BASOPHILS 0.1 % (0-2); HEMATOCRIT 25.7 % (36.0-48.0); IMMATURE GRANULOCYTES 0.3 % (0-5); LYMPHOCYTES 8.2 % (15-50); MCH 24.9 pg (26.0-34.0); MCHC 31.1 g/dL (31.0-37.0); MCV 80.1 fL (80.0-100.0); MONOCYTES 7.8 % (2-11); NEUTROPHILS 82.6 % (40-80); PLATELET COUNT 262 10x3/uL (130-400); RBC 3.21 10x6/uL (4.00-5.40); RDW 15.2 % (11.5-14.5); WBC 9.3 10x3/uL (4.8-10.8)
--- NOTE | 2018-08-17 05:00 | NUR ---
VSS. NO ACUTE DISTRESS OBSERVED.
--- NOTE | 2018-08-17 05:02 | NUR ---
CHANGED PT FIO2 TO 40%PER ABG
[2018-08-17 05:31] LABS: ALBUMIN 2.2 g/dL (3.4-5.0); BILIRUBIN - TOTAL 0.64 mg/dL (0.2-1.3); CALCIUM 7.8 mg/dL (8.5-10.1); CARBON DIOXIDE 27.1 mmol/L (21.0-32.0); MAGNESIUM - SERUM 1.8 mg/dL (1.8-2.4); PHOSPHOROUS 3.3 mg/dL (2.5-4.9); PROTEIN - SERUM 5.1 g/dL (6.4-8.2)
[2018-08-17 05:39] LABS: ANION GAP 14.2 mmol/L (8-16); POTASSIUM - SERUM 3.3 mmol/L (3.5-5.1)
--- NOTE | 2018-08-17 06:00 | NUR ---
PERIPHERAL IV RT UPPER ARM/ SHOULDER OUT. BANDAGE APPLIED
--- NOTE | 2018-08-17 07:15 | NUR ---
REPORT RECEIVED. PT ON VENT PER RT SETTINGS. PT HAS RIGHT AC MIDLINE IV. PROPOFOL INFUSING. PT HAS JOYCE. PT HAS RIGHT CHEST TUBE. HEAD TO TOE ASSESSMENT COMPLETE. WILL CONTINUE TO MONITOR.
--- NOTE | 2018-08-17 09:00 | NUR ---
NEW TUBE FEEDING HUNG AND ADJUSTED PER MINISTER ASSISTANT. PULMOCARE AT 15ML/HR WITH A 20ML/HR FLUSH. STATED THAT WHILE PT IS ON PROPOFOL TO NOT INCREASE FEED PAST 25ML/HR.
--- NOTE | 2018-08-17 10:17 | NUR ---
PT SUCTIONED AND FACE CLEANED UP. VSS.
--- NOTE | 2018-08-17 11:15 | NUR ---
PT REPOSITIONED. SUCTIONED. VSS. WILL CONTINUE TO MONITOR.
--- NOTE | 2018-08-17 13:15 | NUR ---
VANCOMYCIN INFUSING. VSS. WILL CONTINUE TO MONITOR.
--- NOTE | 2018-08-17 15:30 | NUR ---
SEDATION DECREASED TO 35MCG/HR. VSS. WILL CONTINUE TO MONITOR.
--- NOTE | 2018-08-17 17:45 | NUR ---
PT REPOSITIONED AND SUCTIONED. VSS. WILL CONTINUE TO MONITOR.
--- NOTE | 2018-08-17 22:30 | NUR ---
RECIVED REPORT, ASSUMED CARE OF PATIENT. ASSESSMENT COMPLETED. PLEASE SEE REASSESSMENT FLOW SHEET FOR DETAILS. VSS. RESTRAINTS CHECKED, TIED WITH QUICK RELEASE KNOTS. ORAL CARE AND TURNING PROVIDED. ARMS AND LEGS ELEVATED. WILL CONTINUE PLAN OF CARE.
[2018-08-18] VITALS (91 sets, daily range): BP systolic 69–162; BP diastolic 35–85
--- NOTE | 2018-08-18 00:17 | NUR ---
PROVIDED FULL BED BATH AND LINEN CHANGE. BM NOTED. JOYCE CARE PROVIDED. DRESSING TO ABDOMEN CHANGED. CHEST TUBE BANDAGE CHANGED. BLEEDING EXCORIATION NOTED TO PERINEAL AREA, CLEANED AND DRIED THUROUGHLY. ORAL CARE AND TURNING PROVIDED. ARMS AND LEGS ELEVATED. VSS, BED LOW AND LOCKED, RESTRAINTS REMOVED AND REPLACED - SECURED WITH QUICK RELEASE KNOTS. WILL CPOC.
--- NOTE | 2018-08-18 01:15 | NUR ---
TITRATING LEVOPHED TO EFFECT. WILL CONTINUE PLAN OF CARE.
--- NOTE | 2018-08-18 03:00 | NUR ---
REASSESSMENT COMPLETE, PLEASE SEE FLOW SHEETS FOR DETAILS. TITRATING LEVOPHED TO EFFECT. ORAL CARE AND TURNING PROVIDED. RESRTRAINTS CHECKED. BED LOW AND LOCKED. WILL CONTINUE PLAN OF CARE.
[2018-08-18 03:51] LABS: BASOPHILS 0.1 % (0-2); EOSINOPHILS 1.1 % (0-7); HEMATOCRIT 26.5 % (36.0-48.0); HEMOGLOBIN 8.3 g/dL (12-16); IMMATURE GRANULOCYTES 0.7 % (0-5); LYMPHOCYTES 10.4 % (15-50); MCH 25.2 pg (26.0-34.0); MCHC 31.3 g/dL (31.0-37.0); MCV 80.3 fL (80.0-100.0); MEAN PLATELET VOLUME 9.1 fL (7.4-10.4); NEUTROPHILS 78.7 % (40-80); PLATELET COUNT 276 10x3/uL (130-400); RDW 15.8 % (11.5-14.5)
[2018-08-18 04:03] LABS: ANION GAP 14.3 mmol/L (8-16); BILIRUBIN - TOTAL 0.75 mg/dL (0.2-1.3); CARBON DIOXIDE 24.3 mmol/L (21.0-32.0); POTASSIUM - SERUM 3.6 mmol/L (3.5-5.1); PROTEIN - SERUM 5.7 g/dL (6.4-8.2)
[2018-08-18 04:05] LABS: CREATININE - SERUM 2.3 mg/dL (0.6-1.3); PHOSPHOROUS 4.8 mg/dL (2.5-4.9)
[2018-08-18 04:09] LABS: WBC 12.3 10x3/uL (4.8-10.8)
--- NOTE | 2018-08-18 05:00 | NUR ---
ORAL CARE AND TURNING PROVIDED. TITRATING LEVOPHED TO EFFECT. BED LOW AND LOCKED, RESTRAINTS CHECKED. WILL CONTINUE PLAN OF CARE.
--- NOTE | 2018-08-18 07:02 | NUR ---
REPORT RECEIVED. PT ON LEVOPHED AT 10MCG/HR. ALSO ON PROPOFOL. GOING INTO MIDLING IN RIGHT AC. PT HAS JOYCE. BLISTER ON ABD STARTED DRAINING DURING NIGHT. DRESSING IN PLACE. PT ON RIGHT SIDE CURRENTLY. VSS. WILL CONTINUE TO MONITOR.
--- NOTE | 2018-08-18 08:30 | NUR ---
ORAL MEDS GIVEN BY OGT. RESIDUAL WAS LESS THAN 60. FLUSHED WITH 60ML. TUBE FEED STARTED BACK AFTER MEDICATIONS FLUSHED.
--- NOTE | 2018-08-18 09:27 | NUR ---
BP 88/42. INCREASED LEVOPHED FROM 10MCG/HR TO 15MCG/HR.
--- NOTE | 2018-08-18 09:57 | NUR ---
NUTRITION F/U PT REMAINS SEDATED ON VENT. PULMOCARE AT 25 CC/HR. WILL NEED RATE INCREASE MEDICALLY FEASIBLE AND DIPRIVAN RATE DECREASES. RD FOLLOWING
--- NOTE | 2018-08-18 10:08 | NUR ---
LEVOPHED INCREASED TO 20MCG/HR. BP UP TO 108/51. WILL CONTINUE TO MONITOR.
--- NOTE | 2018-08-18 11:45 | NUR ---
PT SEDATED. VSS. TUBE FEED INFUSING. LEVOPHED INFUSING. WILL CONTINUE TO MONITOR.
--- NOTE | 2018-08-18 13:37 | NUR ---
SEDATION VACATION DONE. PT JERKED HEAD BACK AND FORTH. REPOSITIONED IN BED. SUCTIONED. PUPILS REACTIVE TO LIGHT. SEDATION TURNED BACK ON. WILL CONTINUE TO MONITOR.
--- NOTE | 2018-08-18 15:30 | NUR ---
PT SEDATED AND VSS. REPOSITIONED. WILL CONTINUE TO MONITOR.
--- NOTE | 2018-08-18 17:16 | NUR ---
FAMILY AT BEDSIDE. PT SEDATED. VSS. WILL CONTINUE TO MONITOR.
--- NOTE | 2018-08-18 17:18 | NUR ---
BP 141/61. WILL ATTEMPT TO TITRATE LEVOPHED. 20MCG/HR TO 15MCG/HR.
--- NOTE | 2018-08-18 18:19 | MORECARE ---
CASE MANAGEMENT DISCHARGE SUMMARY PATIENT: OLEG ELY UNIT: [id number] ADM DATE: 08/15/18 AGE: 67 : 52 SEX: F ROOM/BED: D.[facility]3 AUTHOR: CRISTHIAN MATTA PHYSICIAN: REFERRING PHYSICIAN: ADORE COBOS MD DATE OF SERVICE: 08/18/18 Discharge Plan Patient Name: OLEG ELY Facility: [facility]:[place] : 1950 Planned Disposition: Anticipated Discharge Date: Discharge Date: Expected LOS: Initial Reviewer: [email or web address] Initial Review Date: 08/15/2018 Generated: 08/18/18 7:18 pm DCP- Discharge Planning Updated by SIMIN Seals on 08/16/18 3:[address] CM attempted to visit with patient regarding discharge planning/ needs. Patient currently on vent no family available. CM will continue to follow and assist as needed with discharge planning / needs DCPIA - Discharge Planning Initial Assessment Updated by [email or web address]: Deedee Seals on 08/18/18 6:17 pm * Is the patient Alert and Oriented? Yes * How many steps to enter\exit or inside your home? * PCP DASH * Pharmacy [facility] * Preadmission Environment Home Alone * ADLs Partial Dependent * Partial ADLs (Assistance needed) Ambulation Bathing * Other Equipment ELICTRIC WHEELCHAIR, HOSPITAL BED- [facility], * List name and contact numbers for known caregivers / representatives who currently or will assist patient after discharge: YEN GUZMAN - DAUGHTER- [phone] LEIGHA HENRYENEDINA - DAUGHTER - [phone] * Verbal permission to speak to the caregivers and representatives has been obtained from the patient. Yes * Please name any agencies selected above. [employer] PROFESSOR - [facility] (PROVIDER) * Additional services required to return to the preadmission environment? No * Can the patient safely return to the preadmission environment? Yes * Has this patient been hospitalized within the prior 30 days at any hospital? Yes Last DP export: 08/16/18 3:40 p Patient Name: OLEG ELY Page [phone] at 1819 All edits/amendments must be made on the electronic document DICTATION DATE: 08/18/181817 FIRE PRODUCTION OPERATOR: JEFF 08/18/181817 RPT#: [id number] DC DATE: STATUS: ADM IN [facility] [address] [place] [address] END OF REPORT
--- NOTE | 2018-08-18 18:39 | NUR ---
DRESSINGS TO ABD CHANGED. ON TOP OF HEALED INCISION AND ON RLQ.
--- NOTE | 2018-08-18 18:48 | MORECARE ---
CASE MANAGEMENT DISCHARGE SUMMARY PATIENT: OLEG ELY UNIT: [id number] ADM DATE: 08/15/18 AGE: 67 : 52 SEX: F ROOM/BED: D.[facility] AUTHOR: SIGRID,DOC PHYSICIAN: REFERRING PHYSICIAN: ADORE COBOS MD DATE OF SERVICE: 08/18/18 Discharge Plan Patient Name: OLEG ELY Facility: [facility]:[place] : 1950 Planned Disposition: Anticipated Discharge Date: Discharge Date: Expected LOS: Initial Reviewer: [email or web address] Initial Review Date: 08/15/2018 Generated: 08/18/18 7:48 pm Comments DCP- Discharge Planning Updated by [email or web address]: Deedee Seals on 08/18/18 5:[address] Patient Name: OLEG ELY Admission Status: ER Accout number: [id number] Admission Date: 08-15-2018 : 1950 Admission Diagnosis: Attending: ADORE COBOS Current LOS: 3 Anticipated DC Date: Planned Disposition: Primary Insurance: [facility] MEDICARE SOLUTIONS Discharge Planning Comments: CM met with patient's daughter's Margy Hwangbles [phone] and Kim Mason [phone]. at patient's bedside she is currently sedated on vent. Daughter states that patient lives alone at the [facility]. She states she has an electric wheelchair and a hospital bed but it is broken. She states she has sleep apnea and needs cpap but hasn't had sleep study. Daughter also states that patient has a personal companion that comes in a few hours a day during week days. Aide is with [facility]. Daughter states she had hernia repair about a month ago and has been to ER several times since. Daughter's would like for patient to have Rehab prior to discharge but they stated the patient has never agreed to it in the past. Patient may need walk test prior to discharge if 02 is required. CM will continue to follow and assist as needed with discharge planning / needs. Private Sector Executive: Deedee Seals DCP- Discharge Planning Updated by [email or web address]: Deedee Seals on 08/16/18 3:[address] CM attempted to visit with patient regarding discharge planning/ needs. Patient currently on vent no family available. CM will continue to follow and assist as needed with discharge planning / needs DCPIA - Discharge Planning Initial Assessment Updated by [email or web address]: Deedee Seals on 08/18/18 6:17 pm * Is the patient Alert and Oriented? Yes * How many steps to enter\exit or inside your home? * PCP DASH * Pharmacy [facility] * Preadmission Environment Home Alone * ADLs Partial Dependent * Partial ADLs (Assistance needed) Ambulation Bathing * Other Equipment ELICTRIC WHEELCHAIR, HOSPITAL BED- [facility], * List name and contact numbers for known caregivers / representatives who currently or will assist patient after discharge: YEN GUZMAN - DAUGHTER- [phone] KIM ELMORE - DAUGHTER - [phone] * Verbal permission to speak to the caregivers and representatives has been obtained from the patient. Yes * Please name any agencies selected above. SPLITTING MACHINE TENDER - [facility] [employer] [facility] (PROVIDER) * Additional services required to return to the preadmission environment? No * Can the patient safely return to the preadmission environment? Yes * Has this patient been hospitalized within the prior 30 days at any hospital? Yes Last DP export: 08/18/18 5:18 p Patient Name: OLEG ELY Page 52274 at 1848 All edits/amendments must be made on the electronic document DICTATION DATE: 08/18/181846 WASTE DISPOSAL PLANT OPERATOR: JEFF 08/18/181846 RPT#: [id number] DC DATE: STATUS: ADM IN [facility] [address] [place] [address] END OF REPORT
--- NOTE | 2018-08-18 19:28 | NUR ---
SHIFT ASSESSMENT COMPLETED PATIENT SEDATION VACATION DOES NOT FOLLOW COMMANDS, REACTS TO PAIN VSS CPOC
--- NOTE | 2018-08-18 21:30 | NUR ---
PT INTUBATED /SEDATED NO APPARENT DISTRESS
--- NOTE | 2018-08-18 23:01 | NUR ---
REASSESSMENT COMPLETED - SEE FLOWSHEET
[2018-08-19] VITALS (31 sets, daily range): BP systolic 88–130; BP diastolic 40–58
--- NOTE | 2018-08-19 01:32 | NUR ---
TITRATED LEVOPHED AT THIS TIME VSS CPOC
--- NOTE | 2018-08-19 03:11 | NUR ---
REASSESSMENT COMPLETED SEE FLOWSHEET
[2018-08-19 03:32] LABS: BASOPHILS 0.2 % (0-2); EOSINOPHILS 2.7 % (0-7); HEMATOCRIT 25.7 % (36.0-48.0); HEMOGLOBIN 8.1 g/dL (12-16); IMMATURE GRANULOCYTES 0.7 % (0-5); LYMPHOCYTES 13.8 % (15-50); MCHC 31.5 g/dL (31.0-37.0); MCV 79.3 fL (80.0-100.0); MONOCYTES 9.8 % (2-11); NEUTROPHILS 72.8 % (40-80); PLATELET COUNT 263 10x3/uL (130-400); RBC 3.24 10x6/uL (4.00-5.40); RDW 15.7 % (11.5-14.5)
[2018-08-19 03:36] LABS: WBC 8.9 10x3/uL (4.8-10.8)
[2018-08-19 03:46] LABS: ALBUMIN 1.6 g/dL (3.4-5.0); ANION GAP 14.1 mmol/L (8-16); BILIRUBIN - TOTAL 0.41 mg/dL (0.2-1.3); CALCIUM 8.1 mg/dL (8.5-10.1); CARBON DIOXIDE 24.7 mmol/L (21.0-32.0); POTASSIUM - SERUM 3.8 mmol/L (3.5-5.1); PROTEIN - SERUM 5.4 g/dL (6.4-8.2)
[2018-08-19 03:55] LABS: CREATININE - SERUM 3.2 mg/dL (0.6-1.3)
--- NOTE | 2018-08-19 06:16 | NUR ---
PT INTUBATED/SEDATED - VSS CPOC
--- NOTE | 2018-08-19 08:27 | NUR ---
LYING IN BED ON VENT AT THIS TIME. NO ACUTE DISTRESS NOTED. PT DOES NOT FOLLOW COMMANDS. INCONTINENT LARGE LIQUID BROWN BOWEL MOVEMENT NOTED AT THIS TIME, TOTAL LINEN CHANGE, BED BATH, ALL CARE, JOYCE CARE, AND ORAL CARE PROVIDED. PT TURNED Q2H. WILL CONTINUE PLAN OF CARE.
--- NOTE | 2018-08-19 10:50 | NUR ---
RESIDUAL NOTED AT 80ML PER OGT. NO ACUTE DISTRESS NOTED. WILL CONTINUE PLAN OF CARE.
--- NOTE | 2018-08-19 12:49 | NUR ---
LYING IN BED ON VENT AT THIS TIME. NO ACUTE DISTRESS NOTED. VSS. WILL CONTINUE PLAN OF CARE.
--- NOTE | 2018-08-19 14:48 | NUR ---
PT TURNED AND ORAL CARE PROVIDED AT THIS TIME IS PROVIDED Q2H. NO ACUTE DISTRESS NOTED. PT DOES NOT FOLLOW COMMANDS. WILL CONTINUE PLAN OF CARE.
--- NOTE | 2018-08-19 16:47 | NUR ---
NO ACUTE DISTRESS NOTED. VSS. WILL CONITNUE PLAN OF CARE.
[2018-08-19 18:25] LABS: CREATININE - URINE 119.7 mg/dL (30-125); POTASSIUM - URINE 51.9 MMOL/L (12.0-62.0); PROTEIN - URINE 100.4 mg/dL (0.0-11.9)
[2018-08-19 18:31] LABS: APPEARANCE CLOUDY (CLEAR); BILIRUBIN 2+ (NEGATIVE); COLOR YELLOW (YELLOW); GLUCOSE NEGATIVE (NEGATIVE); KETONE NEGATIVE (NEGATIVE); NITRITE NEGATIVE (NEGATIVE); PROTEIN TRACE mg/dL (NEGATIVE); UROBILINOGEN NORMAL (NORMAL)
[2018-08-19 18:32] LABS: EPITHELIAL CELLS OCC /hpf (0-5); RED CELLS - URINE NONE SEEN /hpf (0-5); WHITE CELLS - URINE OCC /hpf (0-5)
--- NOTE | 2018-08-19 18:47 | NUR ---
LARGE LIQUID BROWN BOWEL MOVEMENT AT THIS TIME. TOTAL LINEN CHNAGE PROVIDED ALONG WITH ALL CARE AND JOYCE CARE. NO ACUTE DISTRESS NOTED. VSS. WILL CONTINUE PLAN OF CARE.
[2018-08-20] VITALS (24 sets, daily range): BP systolic 92–118; BP diastolic 45–67; Ht 157.5 cm; Wt 147.8 kg
--- NOTE | 2018-08-20 03:10 | NUR ---
REASSESSMENT COMPLETED SEE FLOWSHEET
[2018-08-20 03:26] LABS: BASOPHILS 0.1 % (0-2); EOSINOPHILS 1.6 % (0-7); HEMOGLOBIN 7.6 g/dL (12-16); IMMATURE GRANULOCYTES 0.6 % (0-5); LYMPHOCYTES 12.3 % (15-50); MCH 24.8 pg (26.0-34.0); MCHC 31.7 g/dL (31.0-37.0); MCV 78.4 fL (80.0-100.0); MEAN PLATELET VOLUME 9.2 fL (7.4-10.4); NEUTROPHILS 75.4 % (40-80); PLATELET COUNT 253 10x3/uL (130-400); RBC 3.06 10x6/uL (4.00-5.40); WBC 9.3 10x3/uL (4.8-10.8)
[2018-08-20 04:08] LABS: ALBUMIN 1.5 g/dL (3.4-5.0); ALKALINE PHOSPHATASE 100 U/L (46-116); BILIRUBIN - TOTAL 0.46 mg/dL (0.2-1.3); CALCIUM 8.1 mg/dL (8.5-10.1); CARBON DIOXIDE 21.4 mmol/L (21.0-32.0); CHLORIDE - SERUM 101 mmol/L (98-107); CREATINE KINASE 398 UL (21-215); GLUCOSE 99 mg/dL (74-106); MAGNESIUM - SERUM 2.3 mg/dL (1.8-2.4); POTASSIUM - SERUM 3.8 mmol/L (3.5-5.1); PROTEIN - SERUM 5.5 g/dL (6.4-8.2); SODIUM 135 mmol/L (136-145)
[2018-08-20 04:09] LABS: ALT (SGPT) 20 U/L (10-68); CALC OSMOLALITY 284 mosm/kg (275-300); CREATININE - SERUM 4.2 mg/dL (0.6-1.3); PHOSPHOROUS 6.9 mg/dL (2.5-4.9); UREA NITROGEN 54 mg/dL (7-18); eGFR NON AFRICAN AMERICAN 11 mL/min (90-120)
[2018-08-20 04:10] LABS: CKMB 4.9 U/L (0.0-3.6)
--- NOTE | 2018-08-20 10:53 | NUR ---
DR MÁRQUEZ NOTIFIED OF CONSULT, STATED WILL BE BY LATER TODAY TO SEE PT.
--- NOTE | 2018-08-20 12:46 | NUR ---
DR ROWLAND NOTIFIED OF CONSULT, ORDER RECIEVED FOR US SOFT TISSUE OF THE ABDOMEN WALL, STAT. WILL CONTNIUE PLAN OF CARE.
--- NOTE | 2018-08-20 14:21 | NUR ---
SURGEON AT BEDSIDE, ABSCESS DRAINED, 400ML PURULENT FLUID DRAINED FROM ABDOMINAL SITE. PHYSICIAN PACKED SITE. STATED THAT IF DRESSING BECOMES SOILED TO CHANGED OUT EXTERNAL 4X4S ONLY. SPECIMENS SENT TO LAB FOR CULTURES, ORDERS PLACED. PHYSICIAN SPOKE WITH PTS DAUGHTER EMILY. ALL QUESTIONS AND CONCERNS ADRESSED. WILL CONTINUE PLAN OF CARE.
--- NOTE | 2018-08-20 16:24 | NUR ---
LYING IN BED ON VENT AT HTIS TIME. NO ACUTE DISTRESS NOTED. PT TURNED Q2H. ORAL CARE PROVIDED Q2H. VSS. WILL CONTINUE PLAN OF CARE.
--- NOTE | 2018-08-20 18:24 | NUR ---
SPOKE WITH PTS DAUGHTER AFTER CALL IN CODE WAS VERIFIED. UPDATES PROVIDED. NO ACUTE DISTRESS NOTED. WILL CONTINUE PLANO F CARE.
--- NOTE | 2018-08-20 18:29 | NUR ---
INCONTINENT BOWEL MOVEMENT NOTED AT THIS TIME. TOTAL LINEN CHANGE PROVIDED WITH ALL CARE AND JOYCE CARE USING CHG. ORAL CARE AND SUCTIONING ALSO PROVIDED. NO ACUTE DISTERSS NOTED. WILL CONTINUE PLAN OF CARE.
--- NOTE | 2018-08-20 19:00 | NUR ---
REPORT RECEIVED. REVEIVED PT IN BED. SEDATED/INTUBATED. ETT INTACT/SECURE/PATENT AND CONNECTED TO [facility] VENT WITH SETTINGS ORDERED. CHEST TUBE TO RT LATERAL CHEST INTACT CONNECTED TO 20 CM SUCTION DRAINING SEROUS FLUID INTO COLLECTION CHAMBER, BELOW LEVEL OF PT. DRSG INTACT.OGT INTACT/SECURE AND PATENT WITH PULMOCARE INFUSING AT 35ML/HR PER PUMP. PLACEMENT CHECKED. 10 ML RESIDUAL OBTAINED. HOB UP 40 DEGREES. VAP PROTOCOL OBSERVED. MONITORS CONNECTED TO PATIENT WITH ALARMS SET. VSS.
--- NOTE | 2018-08-20 21:00 | NUR ---
VSS. ORAL CARE GIVEN. REPOSITIONED. NO ACUTE DISTRESS OBSERVED.
--- NOTE | 2018-08-20 23:01 | NUR ---
REASSESSMENT COMPLETED PER FLOW SHEET WITH NO CHANGES OR ACUTE DISTESS OBSERVED. VSS
[2018-08-21] VITALS (18 sets, daily range): BP systolic 102–131; BP diastolic 50–80
--- NOTE | 2018-08-21 01:00 | NUR ---
VSS. NO ACUTE DISTRESS OBSERVED.
--- NOTE | 2018-08-21 03:00 | NUR ---
REASSESSMENT COMPLETED PER FLOW SHEET WITH NO CHANGES OR ACUTE DISTRESS OBSERVED. VSS.
[2018-08-21 04:05] LABS: ALBUMIN 1.5 g/dL (3.4-5.0); ANION GAP 19.3 mmol/L (8-16); BILIRUBIN - TOTAL 0.31 mg/dL (0.2-1.3); CARBON DIOXIDE 19.8 mmol/L (21.0-32.0); CREATININE - SERUM 4.8 mg/dL (0.6-1.3); MAGNESIUM - SERUM 2.1 mg/dL (1.8-2.4); PHOSPHOROUS 7.7 mg/dL (2.5-4.9); POTASSIUM - SERUM 4.1 mmol/L (3.5-5.1); PROTEIN - SERUM 4.8 g/dL (6.4-8.2); VANCOMYCIN - RANDOM 29.1 ug/mL (10.0-20.0)
--- NOTE | 2018-08-21 05:09 | NUR ---
VSS. NO ACUTE DISTRESS OBSERVED.
[2018-08-21 07:07] LABS: BASOPHILS 0.1 % (0-2); EOSINOPHILS 3.8 % (0-7); HEMATOCRIT 24.7 % (36.0-48.0); HEMOGLOBIN 7.8 g/dL (12-16); IMMATURE GRANULOCYTES 1.9 % (0-5); LYMPHOCYTES 14.9 % (15-50); MCH 24.7 pg (26.0-34.0); MCHC 31.6 g/dL (31.0-37.0); MCV 78.2 fL (80.0-100.0); MONOCYTES 11.3 % (2-11); PLATELET COUNT 243 10x3/uL (130-400); RBC 3.16 10x6/uL (4.00-5.40); RDW 15.8 % (11.5-14.5); WBC 7.2 10x3/uL (4.8-10.8)
--- NOTE | 2018-08-21 07:30 | NUR ---
REPORT RECEIVED. PT ON VENT PER RT SETTINGS. HEAD TO TOE ASSESSMENT COMPLETED. PT HAS JOYCE. PT HAS MIDLINE IV IN RIGHT AC. SHE HAS PROPOFOL AND NS INFUSING. SHE HAS PULMOCARE FEEDING GOING THROUGH HER OGT. SHE HAS A RIGHT CHEST TUBE, A DRESSING TO HER MID LOWER ABD. VSS. WILL CONTINUE TO MONITOR.
--- NOTE | 2018-08-21 09:01 | NUR ---
RESIDUAL LESS THAN 5ML. MEDS GIVEN VIA OGT. FLUSHED. FEEDING RESUMED. PROCRIT GIVEN SUBC. VSS. PT SUCTIONED. WILL CONTINUE TO MONITOR.
--- NOTE | 2018-08-21 09:49 | NUR ---
NUTRITION F/U PT REMAINS SEDATED ON VENT. PULMOCARE AT CURRENT GOAL RATE 35 CC/HR. WILL CONTINUE TO PROVIDE PULMOCARE, MONITOR PT PROGRESS. RD FOLLOWING
--- NOTE | 2018-08-21 10:10 | NUR ---
VENT SETTINGS ADJUSTED PER RT AND DR RIOS. ANTIBIOTIC HANGING. VSS. WILL CONTINUE TO MONITOR.
--- NOTE | 2018-08-21 12:15 | NUR ---
PT RESTING QUIETLY. DAUGHTER AT BEDSIDE. VSS. NEW DIPROVAN HANGING. ROBITUSSIN AND PROBIOTIC GIVEN THROUGH OGT. PT SUCTIONED. WILL CONTINUE TO MONITOR.
--- NOTE | 2018-08-21 13:30 | NUR ---
DRESSING CHANGED TO LOWER ABD PER DR BARNETT. BLOODY DRAINAGE. NO PURULENT DRAINAGE NOTED. DR STEVENS ALSO ROUNDING ON PT AT THIS TIME.
--- NOTE | 2018-08-21 15:30 | NUR ---
PT RESTING QUIETLY. VSS. WILL CONTINUE TO MONITOR.
--- NOTE | 2018-08-21 17:45 | NUR ---
DAUGHTERS AT BEDSIDE. DR RIOS ROUNDED. UPDATED DAUGHTERS ON PLAN. NO OTHER NEEDS AT THIS TIME.
--- NOTE | 2018-08-21 19:00 | NUR ---
REPORT RECEIVED. RECEIVED PATIENT IN BED SEDATED/INTUBATED. ETT INTACT/SECURE/PATENT AND CONNECTED TO MECHEANICAL VENT WITH SETTINGS ORDERED. HOB UP 45 DEGREES. ORAL CARE ADMIN. ETT SUCIONED PER IN LINE SX CATH. VAP PROTOCOL OBSERVED. CHEST TUBE TO RT LATERAL CHEST INTACT/SECURE/PATENT CONNECTED TO 20CM SX DRAINING SEROUS FLUID INTO COLLECTION CHAMBER. POSITIONED BELOW LEVEL OF PT. DRSG CDI. OGT INTACT/SECURE/PATENT WITH PULMOCARE INFUSING @ 35ML/HR PER PUMP. PLACEMENT AND RESIDUAL CHECKED. APPROX 10 ML RESIDUAL OBTAINED. MONITORS CONNECTED TO PATIENT WITH ALARMS SET. VSS.
--- NOTE | 2018-08-21 21:00 | NUR ---
VSS. NO ACUTE DISTRESS OBSERVED.
--- NOTE | 2018-08-21 23:00 | NUR ---
REASSESSMENT COMPLETED PER FLOW SHEET WITH NO CHANGES OR DISTRESS OBSERVED. PATIENT COUGHING. ETT SUCTIONED VIA IN LINE SX CATH. MODERATE AMT OF THIN MORALES SECRETIONS OBTAINED. VICTOR MANUEL WITHOUT DIFF.
[2018-08-22] VITALS (23 sets, daily range): BP systolic 95–142; BP diastolic 52–85
--- NOTE | 2018-08-22 01:00 | NUR ---
ORAL CARE PERFOMRED. VSS. NO DISTRESS OBSERVED
--- NOTE | 2018-08-22 03:00 | NUR ---
REASSESSMENT COMPLETED PER FLOW SHEET WITH NO CHANGES OR DISTRESS OBSERVED. VSS. ORAL CARE ADMIN. ETT SUCTIONED PER INLINE SX CATH. VICTOR MANUEL WITHOUT DIFF.
--- NOTE | 2018-08-22 05:00 | NUR ---
VSS. NO ACUTE DISTRESS OBSERVED.
[2018-08-22 05:05] LABS: BASOPHILS 0.3 % (0-2); HEMATOCRIT 24.6 % (36.0-48.0); HEMOGLOBIN 7.9 g/dL (12-16); IMMATURE GRANULOCYTES 3.8 % (0-5); LYMPHOCYTES 14.9 % (15-50); MCH 25.2 pg (26.0-34.0); MCHC 32.1 g/dL (31.0-37.0); MCV 78.3 fL (80.0-100.0); MEAN PLATELET VOLUME 9.2 fL (7.4-10.4); PLATELET COUNT 261 10x3/uL (130-400); RBC 3.14 10x6/uL (4.00-5.40); RDW 15.9 % (11.5-14.5); WBC 6.4 10x3/uL (4.8-10.8)
[2018-08-22 06:10] LABS: ALBUMIN 1.7 g/dL (3.4-5.0); ANION GAP 18.9 mmol/L (8-16); BILIRUBIN - TOTAL 0.37 mg/dL (0.2-1.3); CALCIUM 8.4 mg/dL (8.5-10.1); CARBON DIOXIDE 19.8 mmol/L (21.0-32.0); CREATININE - SERUM 5.6 mg/dL (0.6-1.3); POTASSIUM - SERUM 3.7 mmol/L (3.5-5.1); PROTEIN - SERUM 5.5 g/dL (6.4-8.2); VANCOMYCIN - RANDOM 28.3 ug/mL (10.0-20.0)
--- NOTE | 2018-08-22 06:30 | NUR ---
DR. MÁRQUEZ INTO SEE PT. NEW ORDERS RECEIVED
--- NOTE | 2018-08-22 08:28 | NUR ---
0700 SEDATED ON PROPOFOL AT 20 MCG ASSESSMENT COMPLETE
--- NOTE | 2018-08-22 08:34 | NUR ---
0830 STOPPED SEDATION FOR WEANING TRIAL PER DR RIOS
--- NOTE | 2018-08-22 08:49 | CN ---
PATIENT NAME:OLEG ELY MEDICAL RECORD: [id number] : 54 LOCATION:[id number] ADMIT DATE: 08/15/18 ACCOUNT: [id number] CONSULTING PHYSICIAN: JEREMY PALOMINO MD REFERRING PHYSICIAN: ADORE COBOS MD DATE OF CONSULTATION: 08/17/2018 HISTORY: A 67-year-old female with unknown past medical history, brought into the Emergency Room with respiratory failure, required emergency intubation. Also found to have right pneumothorax. She is noted to have diffuse bilateral infiltrates as well as echocardiographic study showing EF of 30%. We are asked to see her concerning her cardiovascular status. PAST MEDICAL HISTORY: Includes; 1. History of hypertension. 2. Hypothyroidism. MEDICATIONS: Include Myrbetriq 50 mg daily, Synthroid 50 mcg daily, Pepcid 40 daily, Effexor 150 daily, Vistaril 50 t.i.d., Neurontin 600 t.i.d., Abilify 2 mg p.o. daily, amlodipine 5 daily, metoprolol 25 daily, losartan 25 daily, and atorvastatin 80 daily. SOCIAL HISTORY: Unobtainable due to the patient's factors. REVIEW OF SYSTEMS: Unobtainable due to the patient's factors. PHYSICAL EXAMINATION: GENERAL: Sedated, intubated, in no acute distress. VITAL SIGNS: Blood pressure 165/85. Pulse 97 and regular. HEENT: Normocephalic and atraumatic. HEART: Heart tones are distant. LUNGS: Fair air movement ____. ABDOMEN: Soft and nontender. Hypoactive bowel sounds. EXTREMITIES: Pulses are decreased, 1+. There is no edema. IMPRESSION: Respiratory failure. Broad differential is certainly she has cardiomyopathy. I do not know if this is old or new on echocardiographic study. Add MATTHEW inhibitor and beta blockade. Currently receiving diuretics as well. Follow clinical course. TRANSINT:[id number] Voice Confirmation ID: [id number] DOCUMENT ID: [id number] JEREMY PALOMINO MD at 0849 CC: [id number] DICTATION DATE: 08/17/18924 MECHANICAL DESIGNER: 08/17/18 1237 [place] [address]
[2018-08-22 12:11] LABS: OSMOLALITY - URINE 291 (())
[2018-08-22 15:11] LABS: ACID FAST SMEAR Negative (()); AFB SPECIMEN PROCESSING Concentration (())
--- NOTE | 2018-08-22 19:30 | NUR ---
REPORT RECEIVED. RECEIVED PATIENT IN BED. INTUBATED. CURRENTLY OFF SEDATION PER MD. ROUSES SLOWLY TO TACTILE STIMULI WITH EYE OPENING AND SLIGHT EXTREMITY MOVEMENT. NOT FOLLOWING COMMANDS. ETT INTACT/SECURED/ PATENT AND CONNECTED TO MECHANICAL VENT WITH SETTINGS ORDERED. HOB UP 45 DEGREES. VAP PROTOCOL OBSERVED. CHEST TUBE TO RT LATERAL CHEST INTACT/SECURE/PATENT CONNECTED TO 20 CM SX AND DRAINING SEROUS FLUID INTO COLLECTION CHAMBER. POSITIONED BELOW LEVEL OF PT. OGT INTACT/SECURE AND PATENT WITH PULMOCARE INFUSING AT 35 ML/HR PER PUMP. PLACEMENT AND RESIDUAL CHECKED. APPROX 10 ML RESIDUAL OBTAINED. MONITORS CONNECTED TO PATIENT WITH ALARMS SET. VSS. SHIFT ASSESSMENT COMPLETED PER FLOW SHEET WITH NO ACUTE DISTRESS OBSERVED.
--- NOTE | 2018-08-22 20:58 | NUR ---
1030 TOLERATING CPAP WELL
--- NOTE | 2018-08-22 20:58 | NUR ---
1230 PROPOFOL REMAINS OFF
--- NOTE | 2018-08-22 20:59 | NUR ---
2924 UPDATED FAMILY MEMBER VIA PHONE ON WEANING
--- NOTE | 2018-08-22 20:59 | NUR ---
1630 TUBE FEEDING REMAINS OFF FPR POSSIBLE TRIALYSIS
--- NOTE | 2018-08-22 21:00 | NUR ---
ORAL CARE PERFORMED. ETT SUCTIONED VIA IN LINE SX CATH WITH MODERATE AMOUNT OF THIN LIGHT MORALES SECRETIONS OBTAINED. VICTOR MANUEL WITHOUT DIFF. VSS. NO ACUTE DISTRESS OBSERVED.
--- NOTE | 2018-08-22 21:00 | NUR ---
VSS. NO ACUTE DISTRESS OBSERVED
--- NOTE | 2018-08-22 21:01 | NUR ---
183 TRIALYSIS NOT PLACED TODAY
--- NOTE | 2018-08-22 23:00 | NUR ---
REASSESSMENT COMPLETED PER FLOW SHEET WITH NO CHANGES OR ACUTE DISTRESS OBSERVED. VSS. ORAL CARE PERFORMED. HOB UP 45 DEGREES
[2018-08-23] VITALS (24 sets, daily range): BP systolic 83–167; BP diastolic 30–99
--- NOTE | 2018-08-23 01:00 | NUR ---
ORAL CARE PERFORMED. ETT SUCTIONED VIA INLINE SX TUBING WITH MODERATE AMOUNT OF THIN CLEAR SECRETIONS OBTAINED. VSS.
--- NOTE | 2018-08-23 03:00 | NUR ---
RESTING QUIETLY WITH EYES CLOSED. OPENS EYES TO TACTILE STIMULI. REASSESSMENT COMPLETED PER FLOW SHEET WITH NO CHANGES OR ACUTE DISTRESS OBSERVED. VSS.
[2018-08-23 04:23] LABS: BASOPHILS 0.4 % (0-2); EOSINOPHILS 0.6 % (0-7); IMMATURE GRANULOCYTES 5.4 % (0-5); LYMPHOCYTES 13.9 % (15-50); MCH 24.9 pg (26.0-34.0); MCV 77.9 fL (80.0-100.0); MEAN PLATELET VOLUME 9.6 fL (7.4-10.4); MONOCYTES 10.3 % (2-11); NEUTROPHILS 69.4 % (40-80); PLATELET COUNT 276 10x3/uL (130-400); RBC 3.21 10x6/uL (4.00-5.40); RDW 16.1 % (11.5-14.5); WBC 6.9 10x3/uL (4.8-10.8)
[2018-08-23 04:56] LABS: ALBUMIN 1.8 g/dL (3.4-5.0); ANION GAP 23.5 mmol/L (8-16); BILIRUBIN - TOTAL 0.34 mg/dL (0.2-1.3); CALCIUM 8.3 mg/dL (8.5-10.1); CARBON DIOXIDE 18.6 mmol/L (21.0-32.0); CREATININE - SERUM 5.9 mg/dL (0.6-1.3); POTASSIUM - SERUM 4.1 mmol/L (3.5-5.1)
--- NOTE | 2018-08-23 05:00 | NUR ---
VSS. NO ACUTE DISTRESS OBSERVED.
--- NOTE | 2018-08-23 10:38 | EC ---
PATIENT:OLEG ELY DATE OF SERVICE: 08/15/18 SEX: F MEDICAL RECORD: [id number] DATE OF : [birth year] LOCATION:[facility] AGE OF PATIENT: 67 ADMISSION DATE: 08/15/18 REFERRING PHYSICIAN: INTERPRETING PHYSICIAN: JOE RUIZ MD ECHOCARDIOGRAM REPORT ECHO CHARGES 4 ECHO COMPLETE Date: 08/15/18 CLINICAL DIAGNOSIS: PULMONARY EDEMA ECHOCARDIOGRAPHIC MEASUREMENTS (adult normal given) AC root (d.<3.7cm) 2.4 cm LV Septum d (<1.2 cm> 0.9 cm Valve Excursion 1.2 cm LV Septum (systole) 1.0 cm Left Atria (s.<4.0cm> 4.6 cm LVPW d(<1.2cm) 1.3 cm RV (d.<2.3cm) 2.9 cm LVPW (sytole) 1.4 cm LV diastole(<5.6CM) 6.7 cm MV E-F(>70mm/sec) cm LV systole 6.2 cm LVOT Diameter 1.9 cm MV exc.(>10mm) cm Est.ejection fraction (50-75%) % DOPPLER: LVIT cm/sec A 82 cm/sec E 71 cm/sec LA cm/sec RVSP 39.4 mmHg LVOT 87 cm/sec AOP1/2T m/s Asc. Ao 275 cm/sec RVOT 96 cm/sec RA cm/sec PA 99 cm/sec AV Gradient Peak 30.3 mmHg AV Mean 21.4 mmHg AV Area 1.0 cm MV Gradient Peak 7.0 mmHg MV Mean 3.6 mmHg MV Area cm COMMENTS: Silviculture Teacher: Ezequiel PEÑA [employer]: Carmelo Steele TAPE# PACS Pericardial Effusion Y DATE OF SERVICE: 08/15/2018 ECHOCARDIOGRAM FINDINGS: 1. Left ventricular chamber size is dilated. Left ventricular systolic function is vkvvjnbd-dc-jadvrjjj reduced. Overall ejection fraction in the 30% range. 2. Left atrium, right atrium and right ventricular chamber sizes are as well mildly dilated. ECHOCARDIOGRAM REPORT [id number] OLEG ELY 3. Valvular structures have normal structure and motion. 4. Doppler interrogation reveals oxsu-id-dewqxayy mitral regurgitation, ukpc-af-vreilzff tricuspid regurgitation, no other valvular insufficiency or stenosis. Pulmonary systolic pressure is preserved at 39 mmHg. 5. No evidence of pericardial effusion or left ventricular thrombus. TRANSINT:[id number] Voice Confirmation ID: [id number] DOCUMENT ID: [id number] JOE RUIZ MD at 1038 CC: [id number] DICTATION DATE: 08/16/18407 THERAPEUTIC RECREATION LEADER: 08/16/18 0417 ADM IN [facility] [address] [place] [address]
--- NOTE | 2018-08-23 12:18 | NUR ---
NUTRITION F/U PT REMAINS ON VENT, TUBE FEEDS CURRENTLY OFF FOR PROCEDURE. WILL CONTINUE TO MONITOR PT PROGRESS. RD FOLLOWING
--- NOTE | 2018-08-23 13:29 | NUR ---
0700 ASSESSMENT COMPLETE DOES NOT FOLLOW COMMANDS REMAINS ON VENT AT 30% 02
--- NOTE | 2018-08-23 13:36 | NUR ---
0830 DR BARNETT PRESENT AND CHANGED ABDOMINAL INCISION DRESSING PACKED WITH ROLL OF GAUZE AND COVERED WITH 4X4 AND SECURED.
--- NOTE | 2018-08-23 13:39 | NUR ---
0900 INCONTINENT LIQUID BM NOTED HIBICLEANS BATH GIVEN CT DSG CHANGED TOTAL LINEN CHANGE JOYCE CARE, ORAL CARE PROVIDED
--- NOTE | 2018-08-23 13:43 | NUR ---
1100 DR [place] ROUNDING ON PATIENT NEW ORDERS NOTED
--- NOTE | 2018-08-23 13:44 | NUR ---
1300 RT DECREASSED 02 TO 70%
--- NOTE | 2018-08-23 13:45 | NUR ---
1345 RT PLACED VENT ON SPONTANIOUS MODE
[2018-08-23 16:09] LABS: FUNGUS STAIN Final report (())
--- NOTE | 2018-08-23 19:00 | NUR ---
REPORT RECEIVED, CARE ASSUMED. PT IS INTUBATED AND ON VENT AT THIS TIME. INITIAL ASSESSMENT COMPLETED, SEE FLOWSHEET FOR DETAILS. NO SIGNS OF ACUTE DISTRESS. WILL CONTINUE TO MONITOR.
--- NOTE | 2018-08-23 21:00 | NUR ---
PT IS RESTING IN BED INTUBATED AND ON THE VENT. PT IS STARTING TO MOVE AROUND IN BED MORE AND IS COUGHING AND GAGGING ON THE ETT. TRYING TO CALM PT DOWN. REPOSITIONED PT FOR COMFORT. ORAL CARE PERFORMED. WILL CONTINUE TO MONITOR.
--- NOTE | 2018-08-23 22:30 | NUR ---
CALLED DR DANG REGARDING PT GAGGING AND COUGHING ON ETT AND NOT BEING SEDATED SINCE YESTERDAY. ORDERS RECEIVED. SEDATION RESTARTED. NO SIGNS OF ACUTE DISTRESS NOTED AT THIS TIME. WILL CONTINUE TO MONITOR.
--- NOTE | 2018-08-23 23:00 | NUR ---
REASSESSMENT COMPLETED, SEE FLOWSHEET FOR DETAILS. PT IS LAYING IN BED INTUBATED AND SEDATED. PT REPOSITIONED FOR COMFORT. ORAL CARE PERFORMED. NO SIGNS OF ACUTE DISTRESS. WILL CONTINUE TO MONITOR.
[2018-08-24] VITALS (24 sets, daily range): BP systolic 101–187; BP diastolic 60–115
--- NOTE | 2018-08-24 01:00 | NUR ---
PT IS RESTING IN BED INTUBATED AND SEDATED. PT REPOSITIONED FOR COMFORT. ORAL CARE PERFORMED. NO SIGNS OF ACUTE DISTRESS. WILL CONTINUE TO MONITOR.
--- NOTE | 2018-08-24 03:00 | NUR ---
REASSESSMENT COMPLETED, SEE FLOWSHEET FOR DETAILS. PT IS RESTING IN BED INTUBATED AND SEDATED. PT REPOSITIONED FOR COMFORT. NO SIGNS OF ACUTE DISTRESS. WILL CONTINUE TO MONITOR.
[2018-08-24 03:56] LABS: BASOPHILS 0.2 % (0-2); EOSINOPHILS 3.7 % (0-7); HEMATOCRIT 23.7 % (36.0-48.0); HEMOGLOBIN 7.6 g/dL (12-16); IMMATURE GRANULOCYTES 3.6 % (0-5); LYMPHOCYTES 18.1 % (15-50); MCH 24.8 pg (26.0-34.0); MCHC 32.1 g/dL (31.0-37.0); MCV 77.5 fL (80.0-100.0); MEAN PLATELET VOLUME 9.2 fL (7.4-10.4); MONOCYTES 11.3 % (2-11); NEUTROPHILS 63.1 % (40-80); PLATELET COUNT 285 10x3/uL (130-400); RBC 3.06 10x6/uL (4.00-5.40); WBC 6.2 10x3/uL (4.8-10.8)
[2018-08-24 04:27] LABS: ALBUMIN 1.8 g/dL (3.4-5.0); ANION GAP 16.7 mmol/L (8-16); BILIRUBIN - TOTAL 0.39 mg/dL (0.2-1.3); CALCIUM 8.1 mg/dL (8.5-10.1); CARBON DIOXIDE 24.4 mmol/L (21.0-32.0); CREATININE - SERUM 4.7 mg/dL (0.6-1.3); MAGNESIUM - SERUM 2.3 mg/dL (1.8-2.4); PHOSPHOROUS 5.8 mg/dL (2.5-4.9); POTASSIUM - SERUM 3.1 mmol/L (3.5-5.1); PROTEIN - SERUM 5.2 g/dL (6.4-8.2)
--- NOTE | 2018-08-24 05:00 | NUR ---
PT IS RESTING IN BED INTUBATED AND SEDATED. PT REPOSITIONED FOR COMFORT. ORAL CARE PERFORMED. NO SIGNS OF ACUTE DISTRESS. WILL CONTINUE TO MONITOR.
--- NOTE | 2018-08-24 07:00 | NUR ---
PT RESTING IN BED C CALL LOCK IN REACH. SEDATED ON VENTILATOR. RIGHT MIDLINE C AND RIGHT TRIALYSIS CATH. OGT WITH PULMICARE INFUSING AT 35. JOYCE IN PLACE DRAINING CLEAR YELLOW SURGERY. VSS. WILL CONTINUE TO MONITOR
--- NOTE | 2018-08-24 08:29 | NUR ---
TURNED OFF SEDATION PER ORDERS FROM DR. RIOS IN ANTICIPATION OF CPAP TRIAL. RT NOTIFIED.
--- NOTE | 2018-08-24 09:31 | NUR ---
NUTRITION F/U TUBE FEEDS OFF FOR BRONCH, POSSIBLE EXTUBATION. WILL MONITOR PT PROGRESS, PROVIDE DIET WHEN ADVANCED. RD FOLLOWING
--- NOTE | 2018-08-24 10:50 | NUR ---
BRONCHOSCOPY PERFORMED AND COMPLETED AT THIS TIME. PT VS REMAINED STABLE. DIALYSIS NURSE HERE TO BEGIN DIALYSIS.
--- NOTE | 2018-08-24 13:33 | NUR ---
DIALYSIS NURSE TRANSFUSING 1 UNIT PRBC. CHECKED BLOOD WITH HD NURSE.
--- NOTE | 2018-08-24 15:05 | NUR ---
PT HAD INCONTINENT BM. NURSES CLEANED AND CHANGED ALL LINENS. HIBBA CLEANSE BATH GIVEN. PULLED UP IN BED.
--- NOTE | 2018-08-24 16:01 | NUR ---
TOOK PT TO CT OF HEAD AND RETURNED AT THIS TIME. NO COMPLICATIONS. VS REMAINED STABLE.
--- NOTE | 2018-08-24 16:39 | NUR ---
CHANGED DRESSING TO ABDOMINAL INCISION. PACKED IWTH DRY CURLEX AND TAPED DOWN WITH DRY GAUZE ORDERED. DR. OLEARY CAME TO SEE PATIENT. NO ORDERS GVIEN.
[2018-08-24 16:56] LABS: EOS BF 2 %; MACROPHAGES BF 32 %; NEUT - BF 26 %
[2018-08-24 17:00] LABS: NEUT - BF 17 %
[2018-08-24 17:01] LABS: EOS BF 1 %; MACROPHAGES BF 28 %
[2018-08-24 17:15] LABS: ANION GAP 11.8 mmol/L (8-16); CALCIUM 8.2 mg/dL (8.5-10.1); CARBON DIOXIDE 29.1 mmol/L (21.0-32.0)
[2018-08-24 17:24] LABS: CREATININE - SERUM 2.9 mg/dL (0.6-1.3); POTASSIUM - SERUM 3.9 mmol/L (3.5-5.1)
--- NOTE | 2018-08-24 17:28 | NUR ---
2ND UNIT OF PRBC TRANSFUSION STARTED AT THIS TIME. WILL CONTINUE TO MONITOR
--- NOTE | 2018-08-24 18:00 | NUR ---
PT DAUGHTER IN ROOM. SPOKE WITH HER ABOUT POSSIBILITY OF TRACH ANE PEG BUT DR. RIOS HASNT MADE FINAL DECISION YET. VSS. WILL CONTINUE TO MONITOR
--- NOTE | 2018-08-24 18:30 | NUR ---
CLEANED ALL AREA AND REPOSITIONED. FLUSHED JOYCE IT APPEARED TO HAVE LEAKED AROUND THE LUMEN. VSS
--- NOTE | 2018-08-24 19:40 | NUR ---
REPORT REC'D AND CARE ASSUMED, REC'D PT ON VENT VIA 7.5 ETT TAPED @ 24CM SEE FLOWSHEET FOR VENT SETTINGS, PT OPENS EYES TO VERBAL STIMULI BUT DOES NOT FOLLOW COMMANDS, GARIMA-SR, RIJ TRIALYSIS CATHETER DRSG CDI WITH 2ND PRBC OF THE DAY INFUSING, RIGHT UPPER ARM MIDLINE DRSG CDI NS @ 5CC/HR, PT OBESE, GENERAL LIZED EDEMA, REDDENED AREAS BETWEEN SKIN FOLDS, JOYCE PATENT DRAINING YELLOW URINE WITH SEDIMENT, OGT TAPED SECURELY TO ETT, PLACEMENT VERIFIED VIA SM AIR BOLUS AUSCULTATED OVER EPIGASTRIM AREA, PULMOCARE INFUSING @ 35CC/HR, ACTIVE BS X 4, BILAT SOFT WRIST RESTRAINTS INTACT, VISIBLE TO NURSES STATION.
--- NOTE | 2018-08-24 21:00 | NUR ---
EVENING MEDS GIVEN , NO VISITORS IN AT THIS TIME, PT REPOSITIONED ONTO LEFT SIDE SUPPORTED WITH WEDGES, VSS.
--- NOTE | 2018-08-24 23:00 | NUR ---
REASSESSMENT COMPLETED, ORAL CARE PROVIDED, VSS, WILL MONITOR CLOSELY FOR CHANGES
[2018-08-25] VITALS (24 sets, daily range): BP systolic 124–176; BP diastolic 55–108
--- NOTE | 2018-08-25 01:00 | NUR ---
PT INCONTINENT OF GREEN DIARRHEA STOOL, COMPLETE HIBICLENS BATH AND LINEN CHANGE PROVIDED, COMFORT GLIDE SHEET AND PAD CHANGED, RIGHT LATERAL CHEST TUBE DRSG CHANGED, SITE CLEANED WITH CHLORAPREP, DRAIN SPONGE AND 4X4'S APPLIED, SECURED WITH FOAM TAPE, LOWER ABD DRSG WITH BLOODY DRAINAGE, BLOODY KERLIX REMOVED, SITE PACKED WITH DRY KERLIX PER ORDER AND COVERED WITH 4X4'S AND MEDIPORE TAPE, PT REPOSITIONED UP IN BED AND ONTO RIGHT SIDE SUPPORTED WITH WEDGES, ARMS ELEVATED ON PILLOWS, SKIN BARRIER SPRAY APPLIED TO EXCORIATED BUTTOCKS AND INNER GROIN, SR UP X 2, VISIBLE TO NURSES STATION.
--- NOTE | 2018-08-25 03:00 | NUR ---
REASSESSMENT COMPLETED, NO CHANGES FROM PREVIOUS ASSESSMENT, VSS, WILL CONT TO MONITOR FOR CHANGES.
--- NOTE | 2018-08-25 05:10 | NUR ---
AM LAB DRAWN FROM [facility] AND SENT TO LAB.
[2018-08-25 05:44] LABS: BASOPHILS 0.1 % (0-2); EOSINOPHILS 1.8 % (0-7); IMMATURE GRANULOCYTES 5.6 % (0-5); LYMPHOCYTES 19.2 % (15-50); MCH 26.1 pg (26.0-34.0); MCHC 33.1 g/dL (31.0-37.0); MCV 78.9 fL (80.0-100.0); MEAN PLATELET VOLUME 9.2 fL (7.4-10.4); MONOCYTES 13.7 % (2-11); NEUTROPHILS 59.6 % (40-80); PLATELET COUNT 288 10x3/uL (130-400); RDW 15.6 % (11.5-14.5); WBC 6.7 10x3/uL (4.8-10.8)
[2018-08-25 05:45] LABS: HEMATOCRIT 29.9 % (36.0-48.0); HEMOGLOBIN 9.9 g/dL (12-16); RBC 3.79 10x6/uL (4.00-5.40)
[2018-08-25 06:03] LABS: ANION GAP 11.9 mmol/L (8-16); BILIRUBIN - TOTAL 0.36 mg/dL (0.2-1.3); CALCIUM 8.6 mg/dL (8.5-10.1); CARBON DIOXIDE 28.6 mmol/L (21.0-32.0); CREATININE - SERUM 3.4 mg/dL (0.6-1.3); PHOSPHOROUS 4.6 mg/dL (2.5-4.9); POTASSIUM - SERUM 3.5 mmol/L (3.5-5.1); PROTEIN - SERUM 5.7 g/dL (6.4-8.2)
--- NOTE | 2018-08-25 07:20 | NUR ---
REPORT RECEIVED. PT ON VENT. HAS JOYCE. HAS MIDLINE RIGIHT UPPER ARM IV. HAS RIGHT IJ DIALYSIS CATH. PT HAS OGT WITH PULMOCARE GOING AT 35ML/HR WITH NO FLUSH PER ORDERS. HEAD TO TOE ASSESSMENT DONE. WOUND TO MID LOWER ABD. DRESSING C/D/I. RIGHT LATERAL CHEST TUBE TO 20CM SUCTION. VSS. NO SEDATION. WILL CONTINUE TO MONITOR.
[2018-08-25 08:16] LABS: HEPATITIS C ANTIBODY <0.1 S/CO RAT (0.0-0.9)
--- NOTE | 2018-08-25 09:06 | NUR ---
PT REPOSITIONED AND SUCTIONED. VSS. WILL CONTINUE TO MONITOR.
--- NOTE | 2018-08-25 09:22 | NUR ---
Nutrition follow-up: Pt remains intubated; sedation off Pulmocare infusing @ 35 ml/hr Labs reviewed Wt: 330# Right chest tube Recommend advancing Pulmocare to goal rate of 50 ml/hr to better meet estimated nutritional needs. RDN following.
--- NOTE | 2018-08-25 11:45 | NUR ---
PT OFF SEDATION. VSS. LIAISON FROM [facility] IN [facility] CAME TO SEE PT AND SPOKE WITH PT'S FAMILY. NO NEW ORDERS AT THIS TIME.
--- NOTE | 2018-08-25 13:36 | NUR ---
PT PUT ON CPAP PER RT AT 1330.
[2018-08-25 15:12] LABS: ACID FAST SMEAR Negative (()); AFB SPECIMEN PROCESSING Concentration (())
[2018-08-25 15:12] LABS: ACID FAST SMEAR Negative (()); AFB SPECIMEN PROCESSING Concentration (())
--- NOTE | 2018-08-25 15:15 | NUR ---
PT VENT SETTINGS ADJUSTED PER RT. WILL CONTINUE TO MONITOR.
--- NOTE | 2018-08-25 16:38 | NUR ---
PT HAD LARGE INCONTINENT BOWEL MOVEMENT. LIQUID. PT CLEANED. EXCORIATED BOTTOM. PASTE APPLIED. PT REPOSITIONED. VSS. WILL CONTINUE TO MONITOR.
--- NOTE | 2018-08-25 17:16 | MORECARE ---
CASE MANAGEMENT DISCHARGE SUMMARY PATIENT: OLEG ELY UNIT: [id number] ADM DATE: 08/15/18 AGE: 67 : 52 SEX: F ROOM/BED: D.2313 AUTHOR: SIGRID,DOC PHYSICIAN: REFERRING PHYSICIAN: ADORE COBOS MD DATE OF SERVICE: 08/25/18 Discharge Plan Patient Name: OLEG ELY Facility: [facility]:[place] : 1950 Planned Disposition: Anticipated Discharge Date: Discharge Date: Expected LOS: Initial Reviewer: [email or web address] Initial Review Date: 08/15/2018 Generated: 08/25/18 6:15 pm Comments DCP- Discharge Planning Updated by [email or web address]: Deedee Seals on 08/25/18 4:[address] CM received notice for LTACH eval. CM attempted to call daughter Yen but wasn't able to get in touch with her. CM spoke with nursing and if family called to speak to them regarding LTACH. CM later spoke with daughter Kim and gave her information on facilities that are available. She was going to check into facilities and let us know decision. CM spoke with Carmen from [facility] and she stated that [facility] requires patients to be on Vent for 21 days prior to admit to LTACH facility. Patient will need to have a trach and a PEG placed prior to LTACH if still requiring vent. Nursing aware of this information and plan to let Dr. Paulino know. CM will continue to follow and assist as needed with discharge planning / needs. DCP- Discharge Planning Updated by [email or web address]: Deedee Seals on 08/18/18 5:[address] Patient Name: OLEG ELY Admission Status: ER Accout number: [id number] Admission Date: 08-15-2018 : 1950 Admission Diagnosis: Attending: ADORE COBOS Current LOS: 3 Anticipated DC Date: Planned Disposition: Primary Insurance: [facility] MED[employer] SOLUTIONS Discharge Planning Comments: CM met with patient's daughter's Margy Silveira [phone] and Kim Marlon [phone]. at patient's bedside she is currently sedated on vent. Daughter states that patient lives alone at the [facility] [place]. She states she has an electric wheelchair and a hospital bed but it is broken. She states she has sleep apnea and needs cpap but hasn't had sleep study. Daughter also states that patient has a cafeteria aide that comes in a few hours a day during week days. Aide is with [employer]. Daughter states she had hernia repair about a month ago and has been to ER several times since. Daughter's would like for patient to have Rehab prior to discharge but they stated the patient has never agreed to it in the past. Patient may need walk test prior to discharge if 02 is required. CM will continue to follow and assist as needed with discharge planning / needs. Rug Touch Up Painter: Deedee Seals DCP- Discharge Planning Updated by [email or web address]: Deedee Seals on 08/16/18 3:[address] CM attempted to visit with patient regarding discharge planning/ needs. Patient currently on vent no family available. CM will continue to follow and assist as needed with discharge planning / needs DCPIA - Discharge Planning Initial Assessment Updated by [email or web address]: Deedee Seals on 08/18/18 6:17 pm * Is the patient Alert and Oriented? Yes * How many steps to enter\exit or inside your home? * PCP DASH * Pharmacy [facility] * Preadmission Environment Home Alone * ADLs Partial Dependent * Partial ADLs (Assistance needed) Ambulation Bathing * Other Equipment ELICTRIC WHEELCHAIR, HOSPITAL BED- [facility], * List name and contact numbers for known caregivers / representatives who currently or will assist patient after discharge: YEN SILVEIRA - DAUGHTER- [phone] KIM ELMORE - DAUGHTER - [phone] * Verbal permission to speak to the caregivers and representatives has been obtained from the patient. Yes * Please name any agencies selected above. ASSISTANT [facility] - [facility] (PROVIDER) * Additional services required to return to the preadmission environment? No * Can the patient safely return to the preadmission environment? Yes * Has this patient been hospitalized within the prior 30 days at any hospital? Yes Last DP export: 08/18/18 5:48 p Patient Name: OLEG ELY Page [id number] at 1716 All edits/amendments must be made on the electronic document DICTATION DATE: 08/25/181714 PLASTIC PRODUCTION MACHINE SETTER: JEFF 08/25/181714 RPT#: [id number] DC DATE: STATUS: ADM IN [facility] [address] [place] [address] END OF REPORT
--- NOTE | 2018-08-25 17:35 | NUR ---
DRESSING TO LOWER ABD CHANGED PER ORDERS. SEROSANGUINOUS DRAINAGE. PT TOLERATED WELL. WILL CONTINUE TO MONITOR.
--- NOTE | 2018-08-25 19:20 | NUR ---
REC'D PT ON VENT VIA 7.5 ETT TAPED SECURELY @ 24CM LIPLINE SEE FLOWSHEET FOR VENT SETTINGS, PT AWAKE BUT DOES NOT RESPOND TO COMMANDS OR NOD YES AND NO, RIJ TRIALYSIS CATHETER, DRSG CDI, NURSE PORT SALINE LOCKED, OGT TAPED SECURELY TO ETT, BLOODY SPUTUM NOTED, PULMOCARE INFUSING @ 35CC/HR, GENERALIZED EDEMA, RIGHT UPPER ARM MIDLINE DRSG CDI WITH NS @ 5CC/HR, JOYCE PATENT DRAINING YELLOW URINE WITH SEDIMENT, BILAT SOFT WRIST RESTRAINTS INTACT, BED IN LOW POSITION, VISIBLE TO NURSES STATION.
--- NOTE | 2018-08-25 19:50 | NUR ---
REPOSITIONED PT UP IN BED AND ONTO LEFT SIDE SUPPORTED WITH WEDGES, PT SUCTIONED DOWN ETT WITH THIN YELLLOW SECRETIONS RETURNED, O2 SAT 96%.
--- NOTE | 2018-08-25 21:00 | NUR ---
EVENING MEDS GIVEN ORDERED, PT RESTING ON VENT EYES CLOSED, RESP 23, WLL MONITOR CLOSELY FOR CHANGES.
--- NOTE | 2018-08-25 23:00 | NUR ---
REASSESSMENT COMPLETED, ORAL CARE PROVIDED, PT CONTINUES TO OPEN EYES AND LOOK DIRECTLY AT NURSE BUT DOES NOT FOLLOW COMMANDS OR ANSWER YES AND NO TO BEING ABLE TO HEAR, NO DISTRESS NOTED, WILL CONT TO MONITOR.
[2018-08-26] VITALS (22 sets, daily range): BP systolic 139–181; BP diastolic 55–122
--- NOTE | 2018-08-26 01:30 | NUR ---
NO CHANGES IN STATUS AT THIS TIME, VSS
--- NOTE | 2018-08-26 03:30 | NUR ---
REASSESSMENT COMPLETED, BLOODY DRAINAGE NOTED FROM MOUTH, ORAL CARE PROVIDED AND MOUTH SUCTIONED, PT CLAMPING TEETH AROUND YANKEUR DESPITE INSTRUCTIONS NOT TOO, PT REPOSITIONED UP IN BED, SR UP X 2, VISIBLE TO NURSES STATION.
--- NOTE | 2018-08-26 05:20 | NUR ---
PT RESTING EYES CLOSED ON VENT, NO VISITORS THIS AM, AM LAB DRAWN FROM TRIALYSIS CATH AND SENT TO LAB.
[2018-08-26 05:52] LABS: BASOPHILS 0.3 % (0-2); HEMOGLOBIN 9.2 g/dL (12-16); IMMATURE GRANULOCYTES 5.9 % (0-5); LYMPHOCYTES 20.4 % (15-50); MCH 25.6 pg (26.0-34.0); MCHC 31.7 g/dL (31.0-37.0); MCV 80.8 fL (80.0-100.0); MEAN PLATELET VOLUME 9.4 fL (7.4-10.4); MONOCYTES 12.6 % (2-11); NEUTROPHILS 58.8 % (40-80); PLATELET COUNT 286 10x3/uL (130-400); RBC 3.59 10x6/uL (4.00-5.40); RDW 15.9 % (11.5-14.5); WBC 6.1 10x3/uL (4.8-10.8)
[2018-08-26 06:27] LABS: ALBUMIN 2.1 g/dL (3.4-5.0); ANION GAP 15.3 mmol/L (8-16); BILIRUBIN - TOTAL 0.37 mg/dL (0.2-1.3); CALCIUM 8.5 mg/dL (8.5-10.1); CARBON DIOXIDE 26.3 mmol/L (21.0-32.0); CREATININE - SERUM 4.1 mg/dL (0.6-1.3); PHOSPHOROUS 5.5 mg/dL (2.5-4.9); POTASSIUM - SERUM 3.6 mmol/L (3.5-5.1); PROTEIN - SERUM 5.5 g/dL (6.4-8.2)
--- NOTE | 2018-08-26 08:00 | NUR ---
REC'ED RPORT FROM OUT GOING RN F
--- NOTE | 2018-08-26 09:00 | NUR ---
ASSESSMSENT COMPLETE - PT RESTING TRACKS WITH EYES - BUT DOES NOT FOLLOW COMMANDS
--- NOTE | 2018-08-26 10:00 | NUR ---
CLORAHEXADINE BATH GIVEN - PT HAD MED SIZED LIQUID STOOL - CHANGED BED CLOTHES AND LINENS
--- NOTE | 2018-08-26 11:00 | NUR ---
DR. YIP AT [facility]
--- NOTE | 2018-08-26 13:40 | NUR ---
MEDICATINOS GIVEN SEE MAR
--- NOTE | 2018-08-26 14:30 | NUR ---
MEDICATIONS GIVEN - SEE MAR
--- NOTE | 2018-08-26 17:00 | NUR ---
SPOKE TO BOTH DAUGHTERS - ASKED IF PLAN TO HAVE TRACHE AND LTAC BOTH AGREED TO PLAN OF TRACHE AND LTAC - CPOC
--- NOTE | 2018-08-26 18:45 | NUR ---
MEDIATIONS GIVEN SEE MAR
--- NOTE | 2018-08-26 19:00 | NUR ---
REPORT RECEIVED INITIAL ASSESSMENT COMPLETE.PT AWAKE AND ALERT FOLLOWS NURSE WITH EYES. ATTEMPTS TO FOLLOW COMMANDS NOT SURE IF COGNITIVE OR UNABLE SECONDARY TO PAIN WITH SWELLING IN EXTREMITIES. CM READING SR WITHOUT ECTOPY ALARMS ON AND AUDIBLE O2 SAT 98%. HEART AND LUNG SOUNDS ARE DISTANT AND DIMINISHED. CHEST TUBE TO RIGHT FLANK DRESSING DRY AND INTACT. VERY LARGE OBESE PT ABD ROUND BUT SOFT ACTIVE BS. JOYCE DRAINING YELLOW URINE TO BEDSIDE DRAINAGE. MULTIPLE BRUISES TO ARMS LEGS AND BODY. SKIN FOLDS REDDENED AND BOTTOM EXCORIATED RED CLAU BUTT PASTE APPLIED. OGT WITH TUBE FEEDING PER ORDERS PT TOLERATING WITHOUT DIFFICULTY. ORALLY INTUBATED SEE RESP THERAPY NOTES.
--- NOTE | 2018-08-26 21:00 | NUR ---
VENT ALARMING PT COUGHING SUCTIONED MODERATE AMOUNT OF CLEAR SECRETIONS ORALLY AND MORALES FROM ORAL ETT ORAL CARE AND REPOSITIONED FOR COMFORT NO DISTRESS NOTED
--- NOTE | 2018-08-26 23:00 | NUR ---
REASSESSMENT COMPLETED. SEE FLOWSHEET CONTINUE POC PT NOT REQUIRING ANY SEDATION HOWEVER WHEN WRIST RESTRAINTS TAKEN OFF PT IMMEDIATELY REACHES TOWARDS ETT AND SLIGHT AGITATION NOTED WHEN RESTRAINTS REAPPLIED
[2018-08-27] VITALS (27 sets, daily range): BP systolic 83–172; BP diastolic 47–111
--- NOTE | 2018-08-27 01:00 | NUR ---
ORAL CARE REPOSITIONED PT VSS NO DISTRESS NOTED
--- NOTE | 2018-08-27 03:00 | NUR ---
REASSESSMENT COMPLETE CPOC NO CHANGES. ORALLY AND ETT SUCTIONED MODERATE AMOUNT OF LIGHT MORALES SECRETIONS. REPOSITIONED FOR COMFORT NO DISTRESS OR S/S OF PAIN NOTED AT THIS TIME
--- NOTE | 2018-08-27 05:00 | NUR ---
PT INCONTINENT LARGE LIQUID BROWN STOOL COMPLETE BED BATH WITH HIBICLESATURNINO COMPLETE LINEN CHANGE AND CLAU BUTT PASTE REAPPLIED. PT OBESE REQUIRES ASSISTANCE WITH 3-4 NURSES USING COMFORT GLIDE SLIDING SHEET. NO DISTRESS NOTED
[2018-08-27 06:46] LABS: BASOPHILS 0.3 % (0-2); HEMATOCRIT 29.4 % (36.0-48.0); HEMOGLOBIN 9.3 g/dL (12-16); IMMATURE GRANULOCYTES 4.2 % (0-5); LYMPHOCYTES 18.1 % (15-50); MCH 25.8 pg (26.0-34.0); MCHC 31.6 g/dL (31.0-37.0); MCV 81.4 fL (80.0-100.0); MEAN PLATELET VOLUME 9.4 fL (7.4-10.4); MONOCYTES 9.7 % (2-11); NEUTROPHILS 66.7 % (40-80); PLATELET COUNT 264 10x3/uL (130-400); RBC 3.61 10x6/uL (4.00-5.40); RDW 15.9 % (11.5-14.5); WBC 6.2 10x3/uL (4.8-10.8)
--- NOTE | 2018-08-27 07:00 | NUR ---
PT RESTING IN BED ON VENTILATOR PER PRESCRIBED SETTINGS. VSS. ASSISTED NIGHT NURSE IN CHANGED OUT BED LINENS AND CLEANING PT AFTER BM.
[2018-08-27 07:15] LABS: ALBUMIN 2.2 g/dL (3.4-5.0); ANION GAP 14.6 mmol/L (8-16); BILIRUBIN - TOTAL 0.38 mg/dL (0.2-1.3); CALCIUM 8.6 mg/dL (8.5-10.1); CARBON DIOXIDE 26.1 mmol/L (21.0-32.0); CREATININE - SERUM 4.4 mg/dL (0.6-1.3); MAGNESIUM - SERUM 2.5 mg/dL (1.8-2.4); PHOSPHOROUS 5.9 mg/dL (2.5-4.9); POTASSIUM - SERUM 3.7 mmol/L (3.5-5.1); PROTEIN - SERUM 5.5 g/dL (6.4-8.2)
--- NOTE | 2018-08-27 09:00 | NUR ---
PT RESTING IN BED ON VENTILATOR. VSS. WILL CONTINUE TO MONITOR
--- NOTE | 2018-08-27 11:00 | NUR ---
PATIENT ON PRESSURE SUPPORT CPAP TRIALS AT THIS TIME PER RT. WILL CONTINUE TO MONITOR
--- NOTE | 2018-08-27 13:14 | NUR ---
PATIENT HAD INCONTINENT LOOSE BM. CLEANED PATIENT AND DID DID COMPLETE LINEN CHANGE. VSS. SUCTIONED ORALLY AND ETT
--- NOTE | 2018-08-27 15:00 | NUR ---
PT RESTING IN BED. VSS. ORAL CARE GIVEN. DR. DENTON MADE ROUNDS.
--- NOTE | 2018-08-27 17:02 | NUR ---
CHANGED OUT TUBE FEED TUBING. STILL TO INFUSE AT 35ML/HR WITH 20 CC FLUSH Q 2 HOURS
--- NOTE | 2018-08-27 19:00 | NUR ---
INITIAL ASSESSMENT COMPLETE. PT AWAKE ALERT ORALLY INTUBATED SEE RESP FOR VENT SETTINGS. CM READING SR WITHOUT ECTOPY ALARMS ON AND AUDIBLE. OBESE PT USING COMFORT GLIDE AND WEDGE CUSHIONS PT REPOSITIONED BOTTOM EXCORIATED AND RED. BED IN LOW POSITION SIDE RAILS UP TIMES 3 CALL LIGHT IN REACH VSS NO DISTRESS NOTED
--- NOTE | 2018-08-27 23:00 | NUR ---
REASSESSMENT COMPLETE NO CHANGES PT HAS HAD LARGE LIQUID BROWN STOOL COMPLETE BATH AND LINEN CHANGE. ABD DRESSING CHANGED DRAINING SEROSANG DRAINAGE PACKED LIGHTLY WITH NS WET GAUZE COVERED WITH GAUZE AND TAPE,
[2018-08-28] VITALS (15 sets, daily range): BP systolic 141–203; BP diastolic 64–99
--- NOTE | 2018-08-28 03:00 | NUR ---
REASSESSMENT NO CHANGES CPOC REPOSITIONED FOR COMFORT
--- NOTE | 2018-08-28 05:00 | NUR ---
ORAL CARE REPOSITION FOR COMFORT
--- NOTE | 2018-08-28 06:00 | NUR ---
LARGE LIQUID BROWN STOOL COMPLETE BED BATH LINEN CHANGE REPOSITIONED CPOC
[2018-08-28 06:32] LABS: BASOPHILS 0.3 % (0-2); EOSINOPHILS 1.2 % (0-7); HEMATOCRIT 30.4 % (36.0-48.0); HEMOGLOBIN 9.4 g/dL (12-16); IMMATURE GRANULOCYTES 2.9 % (0-5); LYMPHOCYTES 17.6 % (15-50); MCH 25.7 pg (26.0-34.0); MCHC 30.9 g/dL (31.0-37.0); MCV 83.1 fL (80.0-100.0); MEAN PLATELET VOLUME 9.1 fL (7.4-10.4); MONOCYTES 8.5 % (2-11); NEUTROPHILS 69.5 % (40-80); PLATELET COUNT 278 10x3/uL (130-400); RBC 3.66 10x6/uL (4.00-5.40); RDW 16.1 % (11.5-14.5); WBC 6.6 10x3/uL (4.8-10.8)
[2018-08-28 06:58] LABS: ALBUMIN 2.3 g/dL (3.4-5.0); ANION GAP 14.5 mmol/L (8-16); BILIRUBIN - TOTAL 0.33 mg/dL (0.2-1.3); CALCIUM 8.8 mg/dL (8.5-10.1); CARBON DIOXIDE 28.5 mmol/L (21.0-32.0); CREATININE - SERUM 3.9 mg/dL (0.6-1.3); PHOSPHOROUS 5.8 mg/dL (2.5-4.9); PROTEIN - SERUM 5.5 g/dL (6.4-8.2)
--- NOTE | 2018-08-28 07:20 | NUR ---
REPORT RECIEVED, SHIFT ASSESSMENT COMPLETE, PT IS ON VENT, FOLLOWS COMMANDS, ON 30% FIO2 WITH 975 O2 SAT. ALL PPP, VSS, WILL CON'T TO MONITOR
--- NOTE | 2018-08-28 09:19 | NUR ---
DR. RIOS AT BEDSIDE, NEW ORDERS RECIEVED
--- NOTE | 2018-08-28 11:00 | NUR ---
REASSESSMENT COMPELTE PER FLOW SHEET. VSS. NO NEW CHANGES WILL CONTINUE TO MONITOR
--- NOTE | 2018-08-28 11:15 | NUR ---
PT ON CPAP TRIALS AT THIS TIME, TOLERATING WELL
--- NOTE | 2018-08-28 12:07 | NUR ---
NUTRITION F/U PT REMAINS ON VENT. TUBE FEEDS CURRENTLY OFF FOR POSSIBLE EXTUBATION. WILL MONITOR PT PROGRESS. RD FOLLOWING
[2018-08-28 12:10] LABS: FUNGUS MYCOLOGY CULTURE Preliminary report (())
--- NOTE | 2018-08-28 12:21 | NUR ---
PT EXTUBATED AT THIS TIME, EMILY (DAUGHTER) NOTIFIED AT THIS TIME, PT ON 3L NC WITH 97% O2 SAT
--- NOTE | 2018-08-28 13:30 | NUR ---
ORAL CARE ADM. PT DENIES NEEDS WILL CONTINUE TO FMONITOR
--- NOTE | 2018-08-28 15:00 | NUR ---
REASSESSMENT COMPLETE PER FLOW SHEET. VSS. NO NEW CHANGES WILL CONTINUE TO MONITOR
--- NOTE | 2018-08-28 17:00 | NUR ---
LG BM AT THIS TIME, BATH AND LINEN CHANGE
--- NOTE | 2018-08-28 18:23 | NUR ---
UPDATE GIVEN TO FAMILY OVER PHONE, PASSWORD GIVEN
--- NOTE | 2018-08-28 19:00 | NUR ---
REPORT RECEIVED, CARE ASSUMED. PT IS RESTING IN BED WITH EYES CLOSED AT THIS TIME. INITIAL ASSESSMENT COMPLETED, SEE FLOWSHEET FOR DETAILS. PT HAS ORDERS FOR BIPAP FOR AT NIGHT, BIPAP PLACED ON PT PER RT. NO SIGNS OF ACUTE DISTRESS NOTED AT THIS TIME. WILL CONTINUE TO MONITOR.
--- NOTE | 2018-08-28 21:00 | NUR ---
PT IS RESTING IN BED WITH EYES OPEN. PT'S DAUGHTER IS AT BEDSIDE. UPDATE GIVEN, QUESTIONS ANSWERED. NO SIGNS OF ACUTE DISTRESS NOTED AT THIS TIME. WILL CONTINUE TO MONITOR.
--- NOTE | 2018-08-28 23:00 | NUR ---
REASSESSMENT COMPLETED, SEE FLOWSHEET FOR DETAILS. PT IS LAYING IN BED WITH EYES OPEN AT THIS TIME ON BIPAP. PT VOICES NO NEEDS. NO SIGNS OF ACUTE DISTRESS. WILL CONTINUE TO MONITOR.
[2018-08-29] VITALS (11 sets, daily range): BP systolic 136–194; BP diastolic 69–99
--- NOTE | 2018-08-29 01:00 | NUR ---
PT IS RESTING IN BED WITH EYES CLOSED. PT REPOSITIONED FOR COMFORT. PT IS ON BIPAP CURRENTLY, NO DISTRESS NOTED. NO SIGNS OF ACUTE DISTRESS. WILL CONTINUE TO MONITOR.
--- NOTE | 2018-08-29 03:00 | NUR ---
REASSESSMENT COMPLETED, SEE FLOWSHEET FOR DETAILS. PT IS RESTING IN BED WITH EYES CLOSED. PT IS INCREASING BECOMING MORE AGIGATED WITH THE BIPAP AND IS PULLING IT OFF. NO SIGNS OF ACUTE DISTRESS NOTED. WILL CONTINUE TO MONITOR.
[2018-08-29 04:58] LABS: BASOPHILS 0.3 % (0-2); EOSINOPHILS 1.1 % (0-7); HEMATOCRIT 32.3 % (36.0-48.0); HEMOGLOBIN 9.9 g/dL (12-16); IMMATURE GRANULOCYTES 1.5 % (0-5); LYMPHOCYTES 18.3 % (15-50); MCH 25.4 pg (26.0-34.0); MCHC 30.7 g/dL (31.0-37.0); MEAN PLATELET VOLUME 8.9 fL (7.4-10.4); MONOCYTES 8.3 % (2-11); NEUTROPHILS 70.5 % (40-80); PLATELET COUNT 294 10x3/uL (130-400); RBC 3.89 10x6/uL (4.00-5.40); RDW 16.1 % (11.5-14.5); WBC 6.1 10x3/uL (4.8-10.8)
--- NOTE | 2018-08-29 05:00 | NUR ---
PT IS LAYING IN BED WITH EYES CLOSED. ORAL CARE PERFORMED. PT REPOSITIONED FOR COMFORT. NO SIGNS OF ACUTE DISTRESS. WILL CONTINUE TO MONITOR.
[2018-08-29 05:34] LABS: ALBUMIN 2.6 g/dL (3.4-5.0); ANION GAP 15.4 mmol/L (8-16); BILIRUBIN - TOTAL 0.4 mg/dL (0.2-1.3); CALCIUM 8.9 mg/dL (8.5-10.1); CARBON DIOXIDE 26.9 mmol/L (21.0-32.0); CREATININE - SERUM 3.5 mg/dL (0.6-1.3); POTASSIUM - SERUM 4.3 mmol/L (3.5-5.1)
--- NOTE | 2018-08-29 07:28 | NUR ---
REPORT RECIEVED, SHIFT ASSESSMENT COMPLETE, PT IS CONFUSED BUT FOLLOWS COMMANDS, ON 3L NC WITH 97% O2 SAT. ALL PPP, VSS, WILL CON'T TO MONITOR
--- NOTE | 2018-08-29 09:29 | NUR ---
DR. RIOS AT BEDSIDE, UPDATE GIVEN, OK TO TRANSFER OUT OF THE UNIT
--- NOTE | 2018-08-29 09:46 | NUR ---
NUTRITION F/U PT EXTUBATED. AWAITING SWALLOW EVAL. WILL PROVIDE DIET PER SPEECH REC'S, MONITOR PO INTAKE. RD FOLLOWING
--- NOTE | 2018-08-29 11:15 | NUR ---
PT RESTING AT THIS TIME, VSS, WILL CON'T TO MONITOR
--- NOTE | 2018-08-29 13:00 | NUR ---
DR. COBOS AT BEDSIDE, NEW ORDERS RECIEVED,
--- NOTE | 2018-08-29 13:57 | NUR ---
PT AT BEDSIDE, PT SITTING UP ON SIDE OF BED, TOLERATING WELL
--- NOTE | 2018-08-29 19:00 | NUR ---
PATIENT LAYING IN BED. PATIENT IS NON VERBAL AT THIS TIME. NO DISTRESS NOTED.
--- NOTE | 2018-08-29 21:55 | NUR ---
ATTEMPTED TO DON BILEVEL PT REFUSED TO COMPLY BY TWISTING HEAD AND NECK WITNESSED BY NURSE LAO EPLAINED BENEFIT HOWEVER PT CONTINUED TO REFUSE
--- NOTE | 2018-08-29 22:05 | NUR ---
PATIENT REFUSED BIPAP FROM RESPIRATORY.
[2018-08-30] VITALS (7 sets, daily range): BP systolic 128–166; BP diastolic 62–87
--- NOTE | 2018-08-30 02:25 | NUR ---
PATIENT LAYING IN BED. NO COMPLAINTS AT THIS TIME. NO DISTRESS NOTED.
--- NOTE | 2018-08-30 02:33 | NUR ---
CLAU'S BUTT PASTE APPLIED TO BUTTOCKS AND IN BETWEEN UPPER LEGS. WOUND CARE CONSULT ORDERED.
--- NOTE | 2018-08-30 03:40 | NUR ---
DRESSING TO RIGHT IJ TRIALYSIS CHANGED PER PROTOCOL.
[2018-08-30 04:08] LABS: BASOPHILS 0.3 % (0-2); EOSINOPHILS 1.3 % (0-7); HEMATOCRIT 30.7 % (36.0-48.0); HEMOGLOBIN 9.5 g/dL (12-16); IMMATURE GRANULOCYTES 1.7 % (0-5); LYMPHOCYTES 24.2 % (15-50); MCH 25.4 pg (26.0-34.0); MCHC 30.9 g/dL (31.0-37.0); MCV 82.1 fL (80.0-100.0); MEAN PLATELET VOLUME 9.2 fL (7.4-10.4); MONOCYTES 8.8 % (2-11); NEUTROPHILS 63.7 % (40-80); PLATELET COUNT 280 10x3/uL (130-400); RBC 3.74 10x6/uL (4.00-5.40); RDW 16.2 % (11.5-14.5)
[2018-08-30 04:22] LABS: ALBUMIN 2.6 g/dL (3.4-5.0); ANION GAP 11.1 mmol/L (8-16); BILIRUBIN - TOTAL 0.41 mg/dL (0.2-1.3); CALCIUM 8.8 mg/dL (8.5-10.1); CARBON DIOXIDE 28.9 mmol/L (21.0-32.0); CREATININE - SERUM 2.8 mg/dL (0.6-1.3); PROTEIN - SERUM 5.8 g/dL (6.4-8.2)
--- NOTE | 2018-08-30 04:41 | NUR ---
I have reviewed this patient and I concur with the Shift Assessment completed by the Licensed Practical Nurse today this shift.
--- NOTE | 2018-08-30 10:00 | NUR ---
ASSESSMENT COMPLETED. PATIENT IS LETHARGIC AND NON VERBAL. SILL CONTINUE TO MONITOR.
--- NOTE | 2018-08-30 13:40 | NUR ---
Nutrition follow-up: Pt just out of ICU Diet advanced to puree with thin liquids - feeding assistance required PO intake ~80% average of last 3 meals Wt: 317# +BM Labs reviewed PO intake good at this time. Pt nonverbal per nursing. Will provide food choices and honor food preferences within diet restrictions. RDN following.
--- NOTE | 2018-08-30 15:00 | NUR ---
PATIENT LAYING IN BED ON LT SIDE WITH EYES CLOSED AND BREATHING EVENLY. VSS AND PATIENT IS STABLE. WILL CONTINUE WITH PLAN OF CARE. SR UP X 2 BED IN LOW POSTION AND CALL LIGHT IN REACH.
--- NOTE | 2018-08-30 15:13 | MORECARE ---
CASE MANAGEMENT DISCHARGE SUMMARY PATIENT: OLEG ELY UNIT: [id number] ADM DATE: 08/15/18 AGE: 67 : 52 SEX: F ROOM/BED: D.6025 AUTHOR: SIGRID,DOC PHYSICIAN: REFERRING PHYSICIAN: ADORE COBOS MD DATE OF SERVICE: 08/30/18 Discharge Plan Patient Name: OLEG ELY Facility: [facility]:[place] : 1950 Planned Disposition: Chcf Facility Anticipated Discharge Date: Discharge Date: Expected LOS: Initial Reviewer: [email or web address] Initial Review Date: 08/15/2018 Generated: 08/30/18 4:13 pm DCP- Discharge Planning Updated by [email or web address]: Deedee Seals on 08/25/18 4:[address] CM received notice for LTACH eval. CM attempted to call daughter Yen but wasn't able to get in touch with her. CM spoke with nursing and if family called to speak to them regarding LTACH. CM later spoke with daughter Kim and gave her information on facilities that are available. She was going to check into facilities and let us know decision. CM spoke with Carmen from [facility] and she stated that [facility] requires patients to be on Vent for 21 days prior to admit to LTACH facility. Patient will need to have a trach and a PEG placed prior to LTACH if still requiring vent. Nursing aware of this information and plan to let Dr. Paulino know. CM will continue to follow and assist as needed with discharge planning / needs. DCP- Discharge Planning Updated by [email or web address]: Deedee Seals on 08/18/18 5:[address] Patient Name: OLEG ELY Admission Status: ER Accout number: [id number] Admission Date: 08-15-2018 : 1950 Admission Diagnosis: Attending: ADORE COBOS Current LOS: 3 Anticipated DC Date: Planned Disposition: Primary Insurance: [facility] MEDICARE SOLUTIONS Discharge Planning Comments: CM met with patient's daughter's Margy Silveira [phone] and Kim Marlon [phone]. at patient's bedside she is currently sedated on vent. Daughter states that patient lives alone at the [facility] [place]. She states she has an electric wheelchair and a hospital bed but it is broken. She states she has sleep apnea and needs cpap but hasn't had sleep study. Daughter also states that patient has a biological aide that comes in a few hours a day during week days. Aide is with [employer]. Daughter states she had hernia repair about a month ago and has been to ER several times since. Daughter's would like for patient to have Rehab prior to discharge but they stated the patient has never agreed to it in the past. Patient may need walk test prior to discharge if 02 is required. CM will continue to follow and assist as needed with discharge planning / needs. Jewel Staker: Deedee Seals DCP- Discharge Planning Updated by [email or web address]: Deedee Seals on 08/16/18 3:[address] CM attempted to visit with patient regarding discharge planning/ needs. Patient currently on vent no family available. CM will continue to follow and assist as needed with discharge planning / needs DCPIA - Discharge Planning Initial Assessment Updated by [email or web address]: Deedee Seals on 08/18/18 6:17 pm * Is the patient Alert and Oriented? Yes * How many steps to enter\exit or inside your home? * PCP DASH * [facility] * Preadmission Environment Home Alone * ADLs Partial Dependent * Partial ADLs (Assistance needed) Ambulation Bathing * Other Equipment ELICTRIC WHEELCHAIR, HOSPITAL BED- BROKEN, * List name and contact numbers for known caregivers / representatives who currently or will assist patient after discharge: YEN SILVEIRA - DAUGHTER- [phone] KIM HENRYENEDINA - DAUGHTER - [phone] * Verbal permission to speak to the caregivers and representatives has been obtained from the patient. Yes * Please name any agencies selected above. [employer] [facility] [employer] (PROVIDER) * Additional services required to return to the preadmission environment? No * Can the patient safely return to the preadmission environment? Yes * Has this patient been hospitalized within the prior 30 days at any hospital? Yes External Providers External Provider: [facility] Next Contact Date: 08/30/2018 Service Request Date: Service Type: Resolution: Reviewer: Comments: Last DP export: 08/25/18 4:15 pm Patient Name: OLEG ELY Page [phone] at 1513 All edits/amendments must be made on the electronic document DICTATION DATE: 08/30/181512 OBSERVER ELECTRICAL PROSPECTING: JEFF 08/30/181512 RPT#: [id number] DC DATE: STATUS: ADM IN [facility] [address] [place] [address] END OF REPORT
--- NOTE | 2018-08-30 15:20 | NUR ---
OT NOTE: PT SEEN IN PM..NO FUNCTIONAL CHANGE FROM YESTERDAY. MAX ASSIST X 2 FOR SUPINE TO SIT. SITTING BALANCE ON EOB WAS GOOD. PT DID NOT FOLLOW ANY COMMANDS OR PROVIDE ANY RESPONSES TO THIS THERAPIST, HOWEVER, DOES RESPOND BETTER TO MALES. ATTEMPTED AROM EXS, BUT UNABLE TO FOLLOW COMMANDS.. REQUIRED MAX ASSIST FOR PROM EXS. ATTEMPTED NUMEROUS GROOMING TASKS TO INCLUDE ORAL CARE, HAND WASHING, FACE WASHING, AND BRUSHING HAIR. NO INITITATION OR AUTOMATIC RESPONSE TO ANY OF THEM. LEIGHA STACK,OTR/L
--- NOTE | 2018-08-30 16:38 | MORECARE ---
CASE MANAGEMENT DISCHARGE SUMMARY PATIENT: OLEG ELY UNIT: [id number] ADM DATE: 08/15/18 AGE: 67 : 52 SEX: F ROOM/BED: D.8600 AUTHOR: SIGRID,DOC PHYSICIAN: REFERRING PHYSICIAN: ADORE COBOS MD DATE OF SERVICE: 08/30/18 Discharge Plan Patient Name: OLEG ELY Facility: [facility]:[place] : 1950 Planned Disposition: Snf Facility Anticipated Discharge Date: Discharge Date: Expected LOS: Initial Reviewer: [email or web address] Initial Review Date: 08/15/2018 Generated: 08/30/18 5:37 pm DCP- Discharge Planning Updated by [email or web address]: Deedee Seals on 08/25/18 4:[address] CM received notice for LTACH eval. CM attempted to call daughter Yen but wasn't able to get in touch with her. CM spoke with nursing and if family called to speak to them regarding LTACH. CM later spoke with daughter Kim and gave her information on facilities that are available. She was going to check into facilities and let us know decision. CM spoke with Carmen from [facility] and she stated that [facility] requires patients to be on Vent for 21 days prior to admit to LTACH facility. Patient will need to have a trach and a PEG placed prior to LTACH if still requiring vent. Nursing aware of this information and plan to let Dr. Paulino know. CM will continue to follow and assist as needed with discharge planning / needs. DCP- Discharge Planning Updated by [email or web address]: Deedee Seals on 08/18/18 5:[address] Patient Name: OLEG ELY Admission Status: ER Accout number: [id number] Admission Date: 08-15-2018 : 1950 Admission Diagnosis: Attending: ADORE COBOS Current LOS: 3 Anticipated DC Date: Planned Disposition: Primary Insurance: [facility] MEDICARE SOLUTIONS Discharge Planning Comments: CM met with patient's daughter's Margy Silveira [phone] and Kim Marlon [phone]. at patient's bedside she is currently sedated on vent. Daughter states that patient lives alone at the [facility]. She states she has an electric wheelchair and a hospital bed but it is broken. She states she has sleep apnea and needs cpap but hasn't had sleep study. Daughter also states that patient has a computer lab aide that comes in a few hours a day during week days. Aide is with [employer]. Daughter states she had hernia repair about a month ago and has been to ER several times since. Daughter's would like for patient to have Rehab prior to discharge but they stated the patient has never agreed to it in the past. Patient may need walk test prior to discharge if 02 is required. CM will continue to follow and assist as needed with discharge planning / needs. Circulation Crew Leader: Deedee Seals DCP- Discharge Planning Updated by [email or web address]: Deedee Seals on 08/16/18 3:[address] CM attempted to visit with patient regarding discharge planning/ needs. Patient currently on vent no family available. CM will continue to follow and assist as needed with discharge planning / needs DCPIA - Discharge Planning Initial Assessment Updated by [email or web address]: Deedee Seals on 08/18/18 6:17 pm * Is the patient Alert and Oriented? Yes * How many steps to enter\exit or inside your home? * PCP DASH * Pharmacy [facility] * Preadmission Environment Home Alone * ADLs Partial Dependent * Partial ADLs (Assistance needed) Ambulation Bathing * Other Equipment ELICTRIC WHEELCHAIR, HOSPITAL BED- BROKEN, * List name and contact numbers for known caregivers / representatives who currently or will assist patient after discharge: YEN SILVEIRA - DAUGHTER- [phone] KIM ELMORE - DAUGHTER - [phone] * Verbal permission to speak to the caregivers and representatives has been obtained from the patient. Yes * Please name any agencies selected above. [employer] [facility] [employer] ([employer]OVIDER) * Additional services required to return to the preadmission environment? No * Can the patient safely return to the preadmission environment? Yes * Has this patient been hospitalized within the prior 30 days at any hospital? Yes External Providers [facility] Provider[facility] Next Contact Date: 08/30/2018 Service Request Date: Service Type: Resolution: Reviewer: Comments: Coverage Notice Reviewer: [email or web address] - Alvaro Galaviz Notice Issued Date-Time: 08/30/2018 16:25 Notice Type: Patient Choice Letter Notice Delivered To: Family Member Relationship to Patient: Daughter Administrative Technician Name: LIAM JOYCE Delivery Method: PHONE - Phone Coby Days: Prior Verbal Notification: Recipient Understood Notice: Yes Recipient Signature: Med Rec Note Co-signed by Attending: Coverage Notice Comment: [facility] OR ANY ALF IN [place] Last DP export: 08/30/18 2:13 pm Patient Name: OLEG ELY Page [phone] at 1638 All edits/amendments must be made on the electronic document DICTATION DATE: 08/30/181636 CLIP RIVETER: JEFF 08/30/181636 RPT#: [id number] DC DATE: STATUS: ADM IN [facility] [address] [place] [address] END OF REPORT
--- NOTE | 2018-08-30 16:47 | MORECARE ---
CASE MANAGEMENT DISCHARGE SUMMARY PATIENT: OLEG ELY UNIT: [id number] ADM DATE: 08/15/18 AGE: 67 : [birth year] SEX: F ROOM/BED: D.1426 AUTHOR: SIGRID,DOC PHYSICIAN: REFERRING PHYSICIAN: ADORE COBOS MD DATE OF SERVICE: 08/30/18 Discharge Plan Patient Name: OLEG ELY Facility: [facility]:[place] : 1950 Planned Disposition: [facility]fp Facility Anticipated Discharge Date: Discharge Date: Expected LOS: Initial Reviewer: [id number] Initial Review Date: 08/15/2018 Generated: 08/30/18 5:47 pm Comments DCP- Discharge Planning Updated by [id number]: Alvaro Galaviz on 08/30/18 3:[address] Patient Name: OLEG ELY Encounter No: [id number] : 1950 Primary Insurance: [facility] MEDICARE SOLUTIONS Anticipated DC Date: Planned Disposition: Mcfp Facility External Planned Provider: [facility], MEDICARE REHAB BED DCP follow-up note: CM RECEIVED ORDER FOR PLACEMENT. CM ATTEMPTED TO MEET WITH PT TO DISCUSS DISCHARGE NEEDS AND PLANNING . PT WAS MINIMALLY RESPONSIVE TO CM , MOSTLY STARING AT CM AND WOULD OCCAISIONALLY NOD HEAD BUT WITH NO OTHER REACTION TO QUESTIONS. CM CALLED PT'S [facility] WE[facility], . CM DISCUSSED PLACEMENT OPTIONS AND LOCATIONS. LIAM HAS SIGNED CHOICE FOR [facility] WITH ICU TOWER ATTENDANT PREVIOUSLY. CM CALLED [facility], , SPOKE TO HIEN WHO REPORTS THEY CANNOT ACCEPT DUE TO WEIGHT. CM CALLED LIAM BACK AND DISCUSSED OTHER OPTIONS. LIAM INFORMED CM THAT [facility] WOULD BE SECOND CHOICE WITH ANY FDC IN [place] THIRD CHOICE. LIAM IS HOPEFUL THAT PT WILL RESPOND TO THERAPY SERVICES AND NOT NEED NURSING HOME CARE BUT IF PT NEEDS IT, PT WILL HAVE TO STAY IN FDC. CHOICE COMPLETED FOR [facility] OR ANY [facility] HOME IN [place]. CM FAXED REFERRAL TO [facility] AT [phone]. PT HAS BEEN DELCINED BY [facility]. CM WAITING ON ADMISSION DETERMINATION FROM [facility]. Alvaro Galaviz, CASE MANAGEMENT DCP- Discharge Planning Updated by [email or web address]: Deedee Seals on 08/25/18 4:[address] CM received notice for LTACH eval. CM attempted to call daughter Yen but wasn't able to get in touch with her. CM spoke with nursing and if family called to speak to them regarding LTACH. CM later spoke with daughter Kim and gave her information on facilities that are available. She was going to check into facilities and let us know decision. CM spoke with Carmen from [facility] and she stated that [facility] requires patients to be on Vent for 21 days prior to admit to LTACH facility. Patient will need to have a trach and a PEG placed prior to LTACH if still requiring vent. Nursing aware of this information and plan to let Dr. Paulino know. CM will continue to follow and assist as needed with discharge planning / needs. DCP- Discharge Planning Updated by [email or web address]: Deedee Seals on 08/18/18 5:[address] Patient Name: OLEG ELY Admission Status: ER Accout number: [id number] Admission Date: 08-15-2018 : 1950 Admission Diagnosis: Attending: ADORE COBOS Current LOS: 3 Anticipated DC Date: Planned Disposition: Primary Insurance: [facility] MEDICARE SOLUTIONS Discharge Planning Comments: CM met with patient's daughter's Margy Silveira [phone] and Kim Marlon [phone]. at patient's bedside she is currently sedated on vent. Daughter states that patient lives alone at the [facility] [place]. She states she has an electric wheelchair and a hospital bed but it is broken. She states she has sleep apnea and needs cpap but hasn't had sleep study. Daughter also states that patient has a personal computer network engineer that comes in a few hours a day during week days. Aide is with [employer]. Daughter states she had hernia repair about a month ago and has been to ER several times since. Daughter's would like for patient to have Rehab prior to discharge but they stated the patient has never agreed to it in the past. Patient may need walk test prior to discharge if 02 is required. CM will continue to follow and assist as needed with discharge planning / needs. Glass Technician/Installer: Deedee Seals DCP- Discharge Planning Updated by [email or web address]: Deedee Seals on 08/16/18 3:[address] CM attempted to visit with patient regarding discharge planning/ needs. Patient currently on vent no family available. CM will continue to follow and assist as needed with discharge planning / needs DCPIA - Discharge Planning Initial Assessment Updated by [email or web address]: Deedee Seals on 08/18/18 6:17 pm * Is the patient Alert and Oriented? Yes * How many steps to enter\exit or inside your home? * PCP DASH * [facility] * Preadmission Environment Home Alone * ADLs Partial Dependent * Partial ADLs (Assistance needed) Ambulation Bathing * Other Equipment ELICTRIC WHEELCHAIR, HOSPITAL BED- BROKEN, * List name and contact numbers for known caregivers / representatives who currently or will assist patient after discharge: YEN SILVEIRA - DAUGHTER- [phone] KIM ELMORE - DAUGHTER - [phone] * Verbal permission to speak to the caregivers and representatives has been obtained from the patient. Yes * Please name any agencies selected above. [employer] [facility] (PROVIDER) * Additional services required to return to the preadmission environment? No * Can the patient safely return to the preadmission environment? Yes * Has this patient been hospitalized within the prior 30 days at any hospital? Yes Coverage Notice Reviewer: [id number] Asmita Galaviz Notice Issued Date-Time: 08/30/2018 16:25 Notice Type: Patient Choice Letter Notice Delivered To: Family Member Relationship to Patient: Daughter Revenue Accounting Manager Name: LIAM JOYCE Delivery Method: PHONE - Phone Coby Days: Prior Verbal Notification: Recipient Understood Notice: Yes Recipient Signature: Med Rec Note Co-signed by Attending: Coverage Notice Comment: [facility] OR ANY FDC IN [place] Last DP export: 08/30/18 3:38 pm Patient Name: OLEG ELY Page [phone] at 1647 All edits/amendments must be made on the electronic document DICTATION DATE: 08/30/181645 SPRING INTERNSHIP: JEFF 08/30/181645 RPT#: [id number] DC DATE: STATUS: ADM IN [facility] [address] [place] [address] END OF REPORT
--- NOTE | 2018-08-30 21:53 | NUR ---
PATIENT LAYING IN BED. NO COMPLAINTS AT THIS TIME. NO DISTRESS NOTED. PATIENT TALKING SOME BUT DOES NOT ANSWER ALL QUESTIONS. WILL FOLLOW COMMANDS.
[2018-08-31] VITALS (45 sets, daily range): BP systolic 85–181; BP diastolic 34–489
--- NOTE | 2018-08-31 02:05 | NUR ---
PATIENT OBSERVED TRYING TO GET OUT OF BED. PATIENT TRIED TO STAND UP. CODE MUSCLE CALLED TO HELP GET HER BACK IN BED.
[2018-08-31 02:45] LABS: BASOPHILS 0.1 % (0-2); EOSINOPHILS 0.7 % (0-7); HEMATOCRIT 33.6 % (36.0-48.0); HEMOGLOBIN 10.5 g/dL (12-16); IMMATURE GRANULOCYTES 1.8 % (0-5); LYMPHOCYTES 23.9 % (15-50); MCH 25.5 pg (26.0-34.0); MCHC 31.3 g/dL (31.0-37.0); MCV 81.8 fL (80.0-100.0); MEAN PLATELET VOLUME 9.1 fL (7.4-10.4); MONOCYTES 10.4 % (2-11); NEUTROPHILS 63.1 % (40-80); PLATELET COUNT 297 10x3/uL (130-400); RBC 4.11 10x6/uL (4.00-5.40); RDW 16.5 % (11.5-14.5); WBC 6.8 10x3/uL (4.8-10.8)
--- NOTE | 2018-08-31 03:09 | NUR ---
I have reviewed this patient and I concur with the Shift Assessment completed by the Licensed Practical Nurse today this shift.
[2018-08-31 03:14] LABS: ALBUMIN 2.9 g/dL (3.4-5.0); ANION GAP 14.6 mmol/L (8-16); BILIRUBIN - TOTAL 0.54 mg/dL (0.2-1.3); CALCIUM 9.1 mg/dL (8.5-10.1); CARBON DIOXIDE 26.1 mmol/L (21.0-32.0); CREATININE - SERUM 2.5 mg/dL (0.6-1.3); POTASSIUM - SERUM 3.7 mmol/L (3.5-5.1); PROTEIN - SERUM 6.1 g/dL (6.4-8.2)
--- NOTE | 2018-08-31 03:24 | NUR ---
PATIENTLAYING IN BED. PATIENT NON VERBAL AT THIS TIME. NO DISTRESS NOTED.
--- NOTE | 2018-08-31 07:55 | MORECARE ---
CASE MANAGEMENT DISCHARGE SUMMARY PATIENT: OLEG ELY UNIT: [id number] ADM DATE: 08/15/18 AGE: 67 : 54 SEX: F ROOM/BED: D.2121 AUTHOR: SIGRID,DOC PHYSICIAN: REFERRING PHYSICIAN: ADORE COBOS MD DATE OF SERVICE: 08/31/18 Discharge Plan Patient Name: OLEG ELY Facility: [facility]:[place] : 1950 Planned Disposition: Detention Facility Anticipated Discharge Date: Discharge Date: Expected LOS: Initial Reviewer: [email or web address] Initial Review Date: 08/15/2018 Generated: 08/31/18 8:55 am Comments DCP- Discharge Planning Updated by [id number]: Alvaro Galaviz on 08/30/18 3:[address] Patient Name: OLEG ELY Encounter No: [id number] : 1950 Primary Insurance: [facility] MEDICARE SOLUTIONS Anticipated DC Date: Planned Disposition: Detention Facility External Planned Provider: [facility], MEDICARE REHAB BED DCP follow-up note: CM RECEIVED ORDER FOR PLACEMENT. CM ATTEMPTED TO MEET WITH PT TO DISCUSS DISCHARGE NEEDS AND PLANNING . PT WAS MINIMALLY RESPONSIVE TO CM , MOSTLY STARING AT CM AND WOULD OCCAISIONALLY NOD HEAD BUT WITH NO OTHER REACTION TO QUESTIONS. CM CALLED PT'S [facility] WE[facility], . CM DISCUSSED PLACEMENT OPTIONS AND LOCATIONS. LIAM HAS SIGNED CHOICE FOR [facility] WITH ICU BRICK AND BLOCKER AID LABOR PREVIOUSLY. CM CALLED [facility], , SPOKE TO HIEN WHO REPORTS THEY CANNOT ACCEPT DUE TO WEIGHT. CM CALLED LIAM BACK AND DISCUSSED OTHER OPTIONS. LIAM INFORMED CM THAT [facility] WOULD BE SECOND CHOICE WITH ANY DETENTION IN [place] THIRD CHOICE. LIAM IS HOPEFUL THAT PT WILL RESPOND TO THERAPY SERVICES AND NOT NEED [facility] CARE BUT IF PT NEEDS IT, PT WILL HAVE TO STAY IN DETENTION. CHOICE COMPLETED FOR [facility] OR ANY GROUP HOME HOME IN [place]. CM FAXED REFERRAL TO [facility] AT [phone]. PT HAS BEEN DELCINED BY [facility]. CM WAITING ON ADMISSION DETERMINATION FROM [facility]. Alvaro Galaviz, CASE MANAGEMENT DCP- Discharge Planning Updated by [id number]: Deedee Seals on 08/25/18 4:[address] CM received notice for LTACH eval. CM attempted to call daughter Yen but wasn't able to get in touch with her. CM spoke with nursing and if family called to speak to them regarding LTACH. CM later spoke with daughter Kim and gave her information on facilities that are available. She was going to check into facilities and let us know decision. CM spoke with Carmen from [facility] and she stated that [facility] requires patients to be on Vent for 21 days prior to admit to LTACH facility. Patient will need to have a trach and a PEG placed prior to LTACH if still requiring vent. Nursing aware of this information and plan to let Dr. Paulino know. CM will continue to follow and assist as needed with discharge planning / needs. DCP- Discharge Planning Updated by [email or web address]: Deedee Seals on 08/18/18 5:[address] Patient Name: OLEG ELY Admission Status: ER Accout number: [id number] Admission Date: 08-15-2018 : 1950 Admission Diagnosis: Attending: ADORE COBOS Current LOS: 3 Anticipated DC Date: Planned Disposition: Primary Insurance: [facility] MEDICARE SOLUTIONS Discharge Planning Comments: CM met with patient's daughter's Margy Silveira [phone] and Kim Marlon [phone]. at patient's bedside she is currently sedated on vent. Daughter states that patient lives alone at the [facility]. She states she has an electric wheelchair and a hospital bed but it is broken. She states she has sleep apnea and needs cpap but hasn't had sleep study. Daughter also states that patient has a medicine aide that comes in a few hours a day during week days. Aide is with [employer]. Daughter states she had hernia repair about a month ago and has been to ER several times since. Daughter's would like for patient to have Rehab prior to discharge but they stated the patient has never agreed to it in the past. Patient may need walk test prior to discharge if 02 is required. CM will continue to follow and assist as needed with discharge planning / needs. Jet Blade Polisher: Deedee Seals DCP- Discharge Planning Updated by [email or web address]: Deedee Seals on 08/16/18 3:[address] CM attempted to visit with patient regarding discharge planning/ needs. Patient currently on vent no family available. CM will continue to follow and assist as needed with discharge planning / needs DCPIA - Discharge Planning Initial Assessment Updated by [email or web address]: Deedee Seals on 08/18/18 6:17 pm * Is the patient Alert and Oriented? Yes * How many steps to enter\exit or inside your home? * PCP DASH * [facility] * Preadmission Environment Home Alone * ADLs Partial Dependent * Partial ADLs (Assistance needed) Ambulation Bathing * Other Equipment ELICTRIC WHEELCHAIR, HOSPITAL BED- BROKEN, * List name and contact numbers for known caregivers / representatives who currently or will assist patient after discharge: YEN SILVEIRA - DAUGHTER- [phone] KIM ELMORE - DAUGHTER - [phone] * Verbal permission to speak to the caregivers and representatives has been obtained from the patient. Yes * Please name any agencies selected above. [facility] [employer]RE[employer] COORDIN[facility] - [facility] (PROVIDER) * Additional services required to return to the preadmission environment? No * Can the patient safely return to the preadmission environment? Yes * Has this patient been hospitalized within the prior 30 days at any hospital? Yes Coverage Notice Reviewer: [id number] Asmita Galaviz Notice Issued Date-Time: 08/30/2018 16:25 Notice Type: Patient Choice Letter Notice Delivered To: Family Member Relationship to Patient: Daughter Storekeeper Steward Name: LIAM JOYCE Delivery Method: PHONE - Phone Coby Days: Prior Verbal Notification: Recipient Understood Notice: Yes Recipient Signature: Med Rec Note Co-signed by Attending: Coverage Notice Comment: [facility] OR ANY DETENTION IN [place] Last DP export: 08/30/18 3:47 pm Patient Name: OLEG ELY Page [phone] at 0755 All edits/amendments must be made on the electronic document DICTATION DATE: 08/31/18754 AIR SAMPLER: JEFF 08/31/18 0755 RPT#: [id number] DC DATE: STATUS: ADM IN [facility] [address] [facility] [place] [address] END OF REPORT
--- NOTE | 2018-08-31 09:20 | MORECARE ---
CASE MANAGEMENT DISCHARGE SUMMARY PATIENT: OLEG ELY UNIT: [id number] ADM DATE: 08/15/18 AGE: 67 : [birth year] SEX: F ROOM/BED: D.2121 AUTHOR: SIGRID,DOC PHYSICIAN: REFERRING PHYSICIAN: ADORE COBOS MD DATE OF SERVICE: 08/31/18 Discharge Plan Patient Name: OLEG ELY Facility: [facility]:[place] : 1950 Planned Disposition: Prison Facility Anticipated Discharge Date: Discharge Date: Expected LOS: Initial Reviewer: [id number] Initial Review Date: 08/15/2018 Generated: 08/31/18 10:19 am Comments DCP- Discharge Planning Updated by [id number]: Alvaro Galaviz on 08/31/18 8:[address] Patient Name: OLEG ELY Encounter No: [id number] : 1950 Primary Insurance: [facility] MEDICARE SOLUTIONS Anticipated DC Date: Planned Disposition: Prison Facility External Planned Provider: [facility], MEDICARE REHAB BED DCP follow-up note: CM RECEIVED CALL FROM [facility], , REFERRAL WAS RECEIVED, DISCUSSED PT'S CARE NEEDS. CM FAXED ORDERS ON DIET AND WOUND CARE WELL LATEST NURSING ASSESSMENT TO [facility] FOR REVIEW AT [phone]. CM WAITING ADMISSION DETERMINATION FROM [facility] [place]. Alvaro Galaviz, CASE GILDARDO DCP- Discharge Planning Updated by [id number]: Alvaro Galaviz on 08/30/18 3:[address] Patient Name: OLEG ELY Encounter No: [id number] : 1950 Primary Insurance: [facility] MEDICARE SOLUTIONS Anticipated DC Date: Planned Disposition: Prison Facility External Planned Provider: [facility], MEDICARE REHAB BED DCP follow-up note: CM RECEIVED ORDER FOR PLACEMENT. CM ATTEMPTED TO MEET WITH PT TO DISCUSS DISCHARGE NEEDS AND PLANNING . PT WAS MINIMALLY RESPONSIVE TO CM , MOSTLY STARING AT CM AND WOULD OCCAISIONALLY NOD HEAD BUT WITH NO OTHER REACTION TO QUESTIONS. CM CALLED PT'S [facility], . CM DISCUSSED PLACEMENT OPTIONS AND LOCATIONS. LIAM HAS SIGNED CHOICE FOR [facility] WITH ICU MONKEY TRAINER PREVIOUSLY. CM CALLED [facility], , SPOKE TO HIEN WHO REPORTS THEY CANNOT ACCEPT DUE TO WEIGHT. CM CALLED LIAM BACK AND DISCUSSED OTHER OPTIONS. RON INFORMED CM THAT [facility] WOULD BE SECOND CHOICE WITH ANY ASSISTED IN [place] THIRD CHOICE. LIAM IS HOPEFUL THAT PT WILL RESPOND TO THERAPY SERVICES AND NOT NEED RESIDENTIAL CARE BUT IF PT NEEDS IT, PT WILL HAVE TO STAY IN ASSISTED. CHOICE COMPLETED FOR [facility] OR ANY [facility] HOME IN [place]. CM FAXED REFERRAL TO [facility] AT [phone]. PT HAS BEEN DELCINED BY [facility]. CM WAITING ON ADMISSION DETERMINATION FROM [facility]. Alvaro Galaviz, CASE MANAGEMENT DCP- Discharge Planning Updated by [email or web address]: Deedee Seals on 08/25/18 4:[address] CM received notice for LTACH eval. CM attempted to call denzel Leija but wasn't able to get in touch with her. CM spoke with nursing and if family called to speak to them regarding LTACH. CM later spoke with daughter Kim and gave her information on facilities that are available. She was going to check into facilities and let us know decision. GARIMA spoke with Carmen from [facility] and she stated that [facility] requires patients to be on Vent for 21 days prior to admit to LTACH facility. Patient will need to have a trach and a PEG placed prior to LTACH if still requiring vent. Nursing aware of this information and plan to let Dr. Paulino know. CM will continue to follow and assist as needed with discharge planning / needs. DCP- Discharge Planning Updated by [id number]: Deedee Seals on 08/18/18 5:[address] Patient Name: OLEG ELY Admission Status: ER Accout number: [id number] Admission Date: 08-15-2018 : 1950 Admission Diagnosis: Attending: ADORE COBOS Current LOS: 3 Anticipated DC Date: Planned Disposition: Primary Insurance: [facility] MEDICARE SOLUTIONS Discharge Planning Comments: CM met with patient's daughter's Margy Silveira [phone] and Kim Marlon [phone]. at patient's bedside she is currently sedated on vent. Daughter states that patient lives alone at the [facility]. She states she has an electric wheelchair and a hospital bed but it is broken. She states she has sleep apnea and needs cpap but hasn't had sleep study. Daughter also states that patient has a group activities aide that comes in a few hours a day during week days. Aide is with [employer]. Daughter states she had hernia repair about a month ago and has been to ER several times since. Daughter's would like for patient to have Rehab prior to discharge but they stated the patient has never agreed to it in the past. Patient may need walk test prior to discharge if 02 is required. CM will continue to follow and assist as needed with discharge planning / needs. Manager Tax: Deedee Seals DCP- Discharge Planning Updated by [id number]: Deedee Seals on 08/16/18 3:[address] CM attempted to visit with patient regarding discharge planning/ needs. Patient currently on vent no family available. CM will continue to follow and assist as needed with discharge planning / needs DCPIA - Discharge Planning Initial Assessment Updated by [email or web address]: Deedee Seals on 08/18/18 6:17 pm * Is the patient Alert and Oriented? Yes * How many steps to enter\exit or inside your home? * PCP DASH * [facility] * Preadmission Environment Home Alone * ADLs Partial Dependent * Partial ADLs (Assistance needed) Ambulation Bathing * Other Equipment ELICTRIC WHEELCHAIR, HOSPITAL BED- BROKEN, * List name and contact numbers for known caregivers / representatives who currently or will assist patient after discharge: YEN SILVEIRA - DAUGHTER- [phone] KIM ELMORE - DAUGHTER - [phone] * Verbal permission to speak to the caregivers and representatives has been obtained from the patient. Yes * Please name any agencies selected above. [employer] S[employer] [facility] [facility] (PROVIDER) * Additional services required to return to the preadmission environment? No * Can the patient safely return to the preadmission environment? Yes * Has this patient been hospitalized within the prior 30 days at any hospital? Yes Coverage Notice Reviewer: [id number] - Alvaro Galaviz Notice Issued Date-Time: 08/30/2018 16:25 Notice Type: Patient Choice Letter Notice Delivered To: Family Member Relationship to Patient: Daughter Driving School Instructor Name: LIAM JOYCE Delivery Method: PHONE - Phone Coby Days: Prior Verbal Notification: Recipient Understood Notice: Yes Recipient Signature: Med Rec Note Co-signed by Attending: Coverage Notice Comment: [facility] OR ANY ASSISTED IN [place] Last DP export: 08/31/18 6:55 am Patient Name: OLEG ELY Page [id number] at 0920 All edits/amendments must be made on the electronic document DICTATION DATE: 08/31/18918 CAR VARNISHER: JEFF 08/31/18918 RPT#: [id number] DC DATE: STATUS: ADM IN [facility] [address] [place] [address] END OF REPORT
--- NOTE | 2018-08-31 09:40 | NUR ---
PT NOT BREATHING NO PULSE. CODE BLUE CALLED. SEE CODE RECORD.
--- NOTE | 2018-08-31 09:41 | NUR ---
PULSE IS 143. INTUBATED BY DR. PUENTES. MOVED TO CVO2. PTS DAUGHTER NOTIFIED OF PTS STATUS.
[2018-08-31 10:26] LABS: CKMB 2.1 U/L (0.0-3.6); CREATINE KINASE 63 UL (21-215); TROPONIN-I 0.047 ng/mL (0.000-0.060)
--- NOTE | 2018-08-31 11:17 | NUR ---
PT ARRIVED TO ROOM 0950 ETT 7.5 24 AT THE LIP, R IJ TRIALYSIS CDI WITH NS INFUSING, VERBAL ORDERS PER DR PUENTES TO START PROPOFOL AND HAVE LEVOPHED ON STAND BY , SEE IV FLOWSHEET FOR TIMES OF INFUSIONS, PERICARE AND LINEN CHANGE DONE AFTER PLACED ON VENT, DR COBOS IN ROOM, CONSULTS NOTIFIED, AWAITING CALL BACK FROM DR RIOS, DR TALAVERA IN UNIT AND AWARE, SEE SHIFT ASSESSMENT FOR DETAILS.
--- NOTE | 2018-08-31 11:21 | NUR ---
SPOKE WITH PHARMACY FOR NYSTATIN
--- NOTE | 2018-08-31 11:57 | NUR ---
LOUISE VILLEGAS FROM [facility] IN [place] CALLED TO CHECK IN ON PT. [phone]
--- NOTE | 2018-08-31 12:20 | NUR ---
SPOKE WITH MITCHEL IN PHARMACY FOR NYSTATIN
--- NOTE | 2018-08-31 12:32 | NUR ---
TITRATING DIPROVAN PER ORDERS, PT RR 40S, PT EYES OPEN BUT NOT FOLLOWING COMMANDS, REPOSITIONED, NO SIGNS OF PAIN, DAUGHTER IN ROOM AND REQUESTING TO SPEAK WITH DR COBOS ABOUT DNR STATUS, DR COBOS PAGED AND STATED HE WOULD BE HERE "SOON"
--- NOTE | 2018-08-31 12:55 | NUR ---
PER DAUGHTER PT DNR, DAUGHTER SPOKE WITH DR COBOS AND STATED PT WOULD NOT WANT ALL OF THIS
--- NOTE | 2018-08-31 14:18 | NUR ---
16FR NGT INSERTED WITHOUT DIFFICULTY
--- NOTE | 2018-08-31 17:05 | NUR ---
SPOKE WITH JAY TATUM APN TO GVE COREG AND USE LEVO FOR LOW BP NEEDED, BED BATH AND LINEN CHANGE DONE, REPOSITIONED Q2 HOURS, WILL COTNINUE TO MONITOR
--- NOTE | 2018-08-31 19:10 | NUR ---
Received patient sedated in bed on vent with eyes closed, assessment completed per flowsheet. Patient withdraws for noxious stimuli, eyes PERRLA @ 3mm ith brisk response. S1/S2 noted NSR on telemetry with HR 73, rythmic and regular. Vent settings A/C R-20 V-500 70% P-5 with O2 sat 99%, crackles noted bilateral upper and mid with diminished lower. Abdomen is obese/soft with bowel sounds active x4, lower abdomen incision dressing intact with small drainage noted. All pulses palpable with cap refill < 3 sec, skin warm/dry and moderate weakness noted all. Oral care/suctioning provided, repositioned for comfort. No further needs at this time, see flowsheet for details. All VSS and will continue to monitor.
--- NOTE | 2018-08-31 21:00 | NUR ---
Patient sedated in bed on vent, HS meds given without difficulty. Oral care/suctioning provided, repositioned for comfort. Discussed medication/ventilator use with patient, unable to assess. No further needs and will continue to monitor.
--- NOTE | 2018-08-31 23:00 | NUR ---
Reassessment completed per flowsheet, no changes from previous assessment. S1/S2 noted NSR on telemetry with HR 72, rythmic and regular. Vent settings unchanged from previous with O2 sat 95%, crackles noted bilateral upper and mid with diminished lower. Abdominal incision changed. All pulses palpable with cap refill < 3 sec, skin warm/dry. Oral care/suctioning provided, repositioned for comfort. All VSS and will continue to monitor.
[2018-09-01] VITALS (47 sets, daily range): BP systolic 99–168; BP diastolic 39–82
--- NOTE | 2018-09-01 01:00 | NUR ---
Patient sedated in bed on vent with eyes closed, no s/s of distress at this time. Oral care/suctioning provided, repositioned for comfort. No further needs and will continue to monitor.
--- NOTE | 2018-09-01 03:00 | NUR ---
Reassessment completed per flowsheet, no changes from previous assessment. S1/S2 noted NSR on telemetry with HR 90, rythmic and regular. Vent settings unchanged with O2 sat 100%, crackles noted bilateral upper and mid with diminished lower. Abdomen obese with bowel sounds active x4, incision dressing CDI. All pulses palpable with cap refill < 3 sec, skin warm/dry. Oral care/suctioning provided, repositioned for comfort. No further needs at this time, see flowsheet for details. All VSS and will continue to monitor.
--- NOTE | 2018-09-01 05:00 | NUR ---
Oral care/suctioning provided, repositioned for comfort. Patient cleaned with partial linen change performed, tolerated well. No further needs at this time, all VSS and will continue to monitor.
[2018-09-01 05:33] LABS: BASOPHILS 0.2 % (0-2); HEMATOCRIT 33.8 % (36.0-48.0); HEMOGLOBIN 10.4 g/dL (12-16); IMMATURE GRANULOCYTES 0.5 % (0-5); LYMPHOCYTES 20.9 % (15-50); MCH 25.7 pg (26.0-34.0); MCHC 30.8 g/dL (31.0-37.0); MCV 83.5 fL (80.0-100.0); MEAN PLATELET VOLUME 9.2 fL (7.4-10.4); MONOCYTES 6.2 % (2-11); NEUTROPHILS 71.2 % (40-80); PLATELET COUNT 253 10x3/uL (130-400); RBC 4.05 10x6/uL (4.00-5.40); WBC 9.9 10x3/uL (4.8-10.8)
[2018-09-01 05:45] LABS: ALBUMIN 2.6 g/dL (3.4-5.0); ANION GAP 16.6 mmol/L (8-16); BILIRUBIN - TOTAL 0.54 mg/dL (0.2-1.3); CALCIUM 8.3 mg/dL (8.5-10.1); CARBON DIOXIDE 23.4 mmol/L (21.0-32.0); CREATININE - SERUM 2.2 mg/dL (0.6-1.3); PROTEIN - SERUM 5.4 g/dL (6.4-8.2)
--- NOTE | 2018-09-01 09:44 | NUR ---
NUTRITION F/U SPOKE WITH MD ~ TUBE FEED CONSULT. RECEIVED VERBAL ORDER THAT TUBE FEEDS WOULD NOT BE STARTED TODAY. RD FOLLOWING
--- NOTE | 2018-09-01 13:34 | MORECARE ---
CASE MANAGEMENT DISCHARGE SUMMARY PATIENT: OLEG ELY UNIT: [id number] ADM DATE: 08/15/18 AGE: 67 : [birth year] SEX: F ROOM/BED: [facility] AUTHOR: SIGRID,DOC PHYSICIAN: REFERRING PHYSICIAN: ADORE COBOS MD DATE OF SERVICE: 09/01/18 Discharge Plan Patient Name: OLEG ELY Facility: [facility]:[place] : 1950 Planned Disposition: Half-Way Facility Anticipated Discharge Date: Discharge Date: Expected LOS: Initial Reviewer: [email or web address] Initial Review Date: 08/15/2018 Generated: 09/01/18 2:33 pm Comments DCP- Discharge Planning Updated by [email or web address]: Deedee Seals on 09/01/18 12:[address] 08/31: AF. Vital signs were stable and pulse Ox >90 all morning. Patient noted to become asystolic on monitor and code blue called. CPR performed, regained rhythm and pulse. Intubated and transfered to ICU. I was at bedside during arrest. Ddx of cardiopulmonary arrest includes aspiration, PE, flash pulmonary edema or primary cardiac arrthymia or [place]. PE less likely on anticoagulant but cannot be excluded entirely. Vent support ABG CXR IVF Consult pulmonary CTS to evaluate critical may need trach and PEG Reconsult cardiology may need cath to r/o ischemia 09/01: AFVSS. Off pressors. BS diminished. Intubated, sedated (diprivan now on hold). AB.39/42/111 AC 20 Fi80% PEEP 5. Cr 2.5 -> 2.2. CXR with worsening edema (I/O - 261) Continue vent support Continue empiric Abx Keep I<O Cath to r/o cardiac ischemia down the road DCP- Discharge Planning Updated by [id number]: Alvaro Galaviz on 08/31/18 8:[address] Patient Name: OLEG ELY Encounter No: [id number] : 1950 Primary Insurance: [facility] MEDICARE Procyrion Anticipated DC Date: Planned Disposition: Half-Way Facility External Planned Provider: [facility], MEDICARE REHAB BED DCP follow-up note: CM RECEIVED CALL FROM [facility], , REFERRAL WAS RECEIVED, DISCUSSED PT'S CARE NEEDS. CM FAXED ORDERS ON DIET AND WOUND CARE WELL LATEST NURSING ASSESSMENT TO [facility] FOR REVIEW AT [phone]. CM WAITING ADMISSION DETERMINATION [facility] Alvaro Galaviz, CASE MANAGEMENT DCP- Discharge Planning Updated by [id number]: Alvaro Galaviz on 08/30/18 3:[address] Patient Name: OLEG ELY Encounter No: [id number] : 1950 Primary Insurance: [facility] MEDICARE SOLUTIONS Anticipated DC Date: Planned Disposition: Half-Way Facility External Planned Provider: [facility], MEDICARE REHAB BED DCP follow-up note: CM RECEIVED ORDER FOR PLACEMENT. CM ATTEMPTED TO MEET WITH PT TO DISCUSS DISCHARGE NEEDS AND PLANNING . PT WAS MINIMALLY RESPONSIVE TO CM , MOSTLY STARING AT CM AND WOULD OCCAISIONALLY NOD HEAD BUT WITH NO OTHER REACTION TO QUESTIONS. CM CALLED PT'S LIAM WEBER, . CM DISCUSSED PLACEMENT OPTIONS AND LOCATIONS. LIAM HAS SIGNED CHOICE FOR [facility] WITH ICU ANIMAL CARE SPECIALIST PREVIOUSLY. CM CALLED [facility], , SPOKE TO HIEN WHO REPORTS THEY CANNOT ACCEPT DUE TO WEIGHT. CM CALLED LIAM BACK AND DISCUSSED OTHER OPTIONS. LIAM INFORMED CM THAT [facility] WOULD BE SECOND CHOICE WITH ANY [facility] IN [facility] [place] CHOICE. LIAM IS HOPEFUL THAT PT WILL RESPOND TO THERAPY SERVICES AND NOT NEED DIRECTOR UTILIZATION MANAGEMENT CARE BUT IF PT NEEDS IT, PT WILL HAVE TO STAY IN [facility]. CHOICE COMPLETED FOR [facility] OR ANY PENITENTIARY HOME IN LANE. CM FAXED REFERRAL TO [facility] AT [phone]. PT HAS BEEN DELCINED BY [facility]. CM WAITING ON ADMISSION DETERMINATION FROM [facility]. Alvaro Galaviz, CASE MANAGEMENT DCP- Discharge Planning Updated by [id number]: Deedee Seals on 08/25/18 4:[address] CM received notice for LTACH eval. CM attempted to call daughter Yen but wasn't able to get in touch with her. CM spoke with nursing and if family called to speak to them regarding LTACH. CM later spoke with daughter Kim and gave her information on facilities that are available. She was going to check into facilities and let us know decision. CM spoke with Carmen from [facility] and she stated that [facility] requires patients to be on Vent for 21 days prior to admit to LTACH facility. Patient will need to have a trach and a PEG placed prior to LTACH if still requiring vent. Nursing aware of this information and plan to let Dr. Paulino know. CM will continue to follow and assist as needed with discharge planning / needs. DCP- Discharge Planning Updated by [id number]: Deedee Seals on 08/18/18 5:[address] Patient Name: OLGE ELY Admission Status: ER Accout number: [id number] Admission Date: 08-15-2018 : 1950 Admission Diagnosis: Attending: ADORE COBOS Current LOS: 3 Anticipated DC Date: Planned Disposition: Primary Insurance: [facility] MEDICARE SOLUTIONS Discharge Planning Comments: CM met with patient's daughter's Margy Silveira [phone] and Kim Marlon [phone]. at patient's bedside she is currently sedated on vent. Daughter states that patient lives alone at the [facility]. She states she has an electric wheelchair and a hospital bed but it is broken. She states she has sleep apnea and needs cpap but hasn't had sleep study. Daughter also states that patient has a personal service workers that comes in a few hours a day during week days. Aide is with [employer]. Daughter states she had hernia repair about a month ago and has been to ER several times since. Daughter's would like for patient to have Rehab prior to discharge but they stated the patient has never agreed to it in the past. Patient may need walk test prior to discharge if 02 is required. CM will continue to follow and assist as needed with discharge planning / needs. Print Journalist: Deedee Seals DCP- Discharge Planning Updated by [id number]: Deedee Seals on 08/16/18 3:[address] CM attempted to visit with patient regarding discharge planning/ needs. Patient currently on vent no family available. CM will continue to follow and assist as needed with discharge planning / needs DCPIA - Discharge Planning Initial Assessment Updated by [id number]: Deedee Seals on 08/18/18 6:17 pm * Is the patient Alert and Oriented? Yes * How many steps to enter\exit or inside your home? * PCP DASH * Pharm[facility] * Preadmission Environment Home Alone * ADLs Partial Dependent * Partial ADLs (Assistance needed) Ambulation Bathing * Other Equipment ELICTRIC WHEELCHAIR, HOSPITAL BED- [facility], * List name and contact numbers for known caregivers / representatives who currently or will assist patient after discharge: YEN SILVEIRA - DAUGHTER- [phone] KIM ELMORE - DAUGHTER - [phone] * Verbal permission to speak to the caregivers and representatives has been obtained from the patient. Yes * Please name any agencies selected above. CLASSIFIED AD CLERK - [facility] (PROVIDER) * Additional services required to return to the preadmission environment? No * Can the patient safely return to the preadmission environment? Yes * Has this patient been hospitalized within the prior 30 days at any hospital? Yes Coverage Notice Reviewer: [id number] Asmita Galaviz Notice Issued Date-Time: 08/30/2018 16:25 Notice Type: Patient Choice Letter Notice Delivered To: Family Member Relationship to Patient: Daughter Butcher Supervisor Name: LIAM JOYCE Delivery Method: PHONE - Phone Coby Days: Prior Verbal Notification: Recipient Understood Notice: Yes Recipient Signature: Med Rec Note Co-signed by Attending: Coverage Notice Comment: [facility] OR ANY [facility] IN LANE Last DP export: 08/31/18 8:19 am Patient Name: OLEG ELY Page [id number] at 1334 All edits/amendments must be made on the electronic document DICTATION DATE: 09/01/18 1333 ASSEMBLER LEATHER GOODS: JEFF 09/01/18 1333 RPT#: [id number] DC DATE: STATUS: ADM IN [facility] [address] [place] [address] END OF REPORT
--- NOTE | 2018-09-01 19:00 | NUR ---
REPORT RECEIVED ASSESSMENT COMPLETED. SEE FLOWSHEET FR UFLL DETAILS. VSS. WILL MONITOR THROUGHOUT SHIFT
--- NOTE | 2018-09-01 21:00 | NUR ---
MEDS GIVEN VSS PT ROTATED JOYCE CARE PROVIDED. WILL MONITOR
[2018-09-02] VITALS (24 sets, daily range): BP systolic 103–152; BP diastolic 32–69
--- NOTE | 2018-09-02 02:47 | NUR ---
HIBICLENS BATH GIVEN.
[2018-09-02 07:07] LABS: BASOPHILS 0.3 % (0-2); EOSINOPHILS 3.3 % (0-7); HEMATOCRIT 31.3 % (36.0-48.0); HEMOGLOBIN 9.6 g/dL (12-16); IMMATURE GRANULOCYTES 0.5 % (0-5); LYMPHOCYTES 23.4 % (15-50); MCH 25.5 pg (26.0-34.0); MCHC 30.7 g/dL (31.0-37.0); MCV 83.2 fL (80.0-100.0); MEAN PLATELET VOLUME 9.3 fL (7.4-10.4); MONOCYTES 8.6 % (2-11); NEUTROPHILS 63.9 % (40-80); PLATELET COUNT 223 10x3/uL (130-400); RBC 3.76 10x6/uL (4.00-5.40); RDW 17.1 % (11.5-14.5)
[2018-09-02 07:24] LABS: ALBUMIN 2.6 g/dL (3.4-5.0); ANION GAP 14.7 mmol/L (8-16); BILIRUBIN - TOTAL 0.62 mg/dL (0.2-1.3); CALCIUM 8.2 mg/dL (8.5-10.1); CARBON DIOXIDE 26.4 mmol/L (21.0-32.0); CREATININE - SERUM 1.7 mg/dL (0.6-1.3); POTASSIUM - SERUM 3.1 mmol/L (3.5-5.1); PROTEIN - SERUM 5.3 g/dL (6.4-8.2)
--- NOTE | 2018-09-02 10:34 | NUR ---
8833-[id number]-OEU IN ORAL CAVITY ONLY-TUBE FEEDING TURNED OFF AND OGT REMOVED-ET TUBE AT 24 AT LIPS- 0730-RT AT BEDSIDE-TURNED PT TO CPAP SETTING-DIPRIVAN TURNED OFF ORDERED FOR CPAP TRIALS-RR 23-WITH 500ML TV 0800-DR RIOS AT BEDSIDE-STATUS REPORT-SHOWN AND OBSERVED MUSCULAR TWITCHING TO UPPER SHOULDERS AND ABD-NO FURTHER ORDERS RECIEVED 0930-REPOSITIONED TO R SIDE-NOTED INCONTINENT OF URINE-JOYCE CATH BENT-SAME STRAIGHTENED-AND CONFIRMED PATENCY-NOTED EXTREME AMOUNT OF ADIPOSE TISSUE CAUSED BEND-RENAL AT BEDSIDE-CONTINUE TO FOLLOW ELECTROLYTE PROTOCOL FOR K 3.1 NO ADDITIONAL ORDERS AT THIS TIME
--- NOTE | 2018-09-02 18:16 | NUR ---
1245-DAUGHTERS AT [facility]-ANSWERED QUESTIONS TO BEST OF ABILITY-PG'D DR RIOS TO FURTHER ADDRESS CONCERNS 1345-DR RIOS AT [facility] -DAUGHTERS PRESENTED THEIR QUESTIONS AND ANSWERED BY DR RIOS-STATUS REPORT GIVEN AND CURRENT PLAN OF CARE-OPPORTUNITY GIVEN BY DR RIOS FOR CLARIFICATION-NONE ADDRESSED-DAUGHTERS STRESSED NO EXTUBATION IF THEY ARE NOT PRESENT- PT VERY SLOW TO RESPOND AND CANNOT BE CORRELATED TO COMMAND GIVEN 1600-PT RETURNED TO A/C-RR 35-40
--- NOTE | 2018-09-02 19:50 | NUR ---
REPORT RECEIVED AND ASSESSMENT COMPLETED. SEE FLOWSHEET FOR FULL DETAILS. VSS. WILL MONITOR THROUGHOUT SHIFT. DR RIOS HAS SEEN PT TATES TO CONITNUE TO LIMIT SEDATION.
[2018-09-03] VITALS (25 sets, daily range): BP systolic 111–161; BP diastolic 43–73
--- NOTE | 2018-09-03 03:05 | NUR ---
HIBICLENS BATH GIVEN MARIA DEL CARMEN MONROE COMPLETED. WILL CONTINUE TO MONITOR
[2018-09-03 07:34] LABS: BASOPHILS 0.6 % (0-2); EOSINOPHILS 1.2 % (0-7); HEMATOCRIT 31.5 % (36.0-48.0); HEMOGLOBIN 9.3 g/dL (12-16); IMMATURE GRANULOCYTES 0.4 % (0-5); LYMPHOCYTES 28.4 % (15-50); MCHC 29.5 g/dL (31.0-37.0); MCV 84.7 fL (80.0-100.0); MONOCYTES 8.1 % (2-11); NEUTROPHILS 61.3 % (40-80); PLATELET COUNT 197 10x3/uL (130-400); RBC 3.72 10x6/uL (4.00-5.40); RDW 17.2 % (11.5-14.5)
[2018-09-03 07:54] LABS: ALBUMIN 2.5 g/dL (3.4-5.0); ANION GAP 10.9 mmol/L (8-16); BILIRUBIN - TOTAL 0.59 mg/dL (0.2-1.3); CALCIUM 8.3 mg/dL (8.5-10.1); CARBON DIOXIDE 28.2 mmol/L (21.0-32.0); CREATININE - SERUM 1.6 mg/dL (0.6-1.3); POTASSIUM - SERUM 3.1 mmol/L (3.5-5.1); PROTEIN - SERUM 5.3 g/dL (6.4-8.2)
--- NOTE | 2018-09-03 10:09 | NUR ---
0715-PLACED PT ON AIR OVERLAY-APPEARS LESS OBTUNDED AND MOVES ALL EXTREMITIES WITH PURPOSE-R LATERAL CHEST DRG CHANGED-
--- NOTE | 2018-09-03 16:30 | NUR ---
1215-TEMP 102.3-R UPPER ARM MIDLINE NOT DATED-NOT IN USE-REMOVED WITH TIP INTACT-DR RIOS NOTIFIED AND ORDERS RECIEVED-SPUTUM/URINE AND WOUND CULTURE SENT 1230-DR MONROY AT [facility] AND CURRENT STATUS GIVEN -TENTATIVE PLAN FOR CARDIAC CARH Tuesday-PENDING AM LAB AND TEMPERATURE OUT COME 1300-DR RIOS AT BEDSIDE-BLOOD CULTURE 1 PERIPHERAL AND ONE VIA NURSES PORT ON TRIALYSIS CATH DRAWN 1400-DAUGHTER AT [facility]-DR RIOS SPOKE WITH SAME REGARDING CURRENT STATUS AND TENTATIVE PLANS FOR CARDIAC CATH-DAUGHTER PLACED GLASSES ON PT-NOTED APPERENT INCREASED FACIAL RECOGNITION BY PT AND NODDING CORRECTLY TO QUESTIONS-IV CHANGED TO D5W AT 50ML/H 1500VANCOMYCIN 1 GR IVPB STARTED
--- NOTE | 2018-09-03 17:18 | NUR ---
SPOKE WITH PT DAUGHTER-STATED FROM [facility]-REQUESTED CONTACT NUMBER FOR DR RIOS-OFFICE NUMBER GIVEN-REQUESTED WHO CAN GIVE CONSENT FOR PT-CONFIRMED WITH SPEAKER NO LEGAL SPOUSE PRESENT-REVIEWED OLDEST OF AGE CHILD-CALLER IDENTIFIED THAT LEIGHA-REQUESTED INFO ON WHAT DNR DICTATES-STATED NO COMPRESSIONS/ EMERGENT MEDICATIONS OR INTUBTION/BS-[id number]-IERK NOT IMPLY CANNOT TREAT/OR PROVIDE DIAGNOSTIC TESTS-ASKED REGARDING TENTATIVE PLANS FOR CARDIAC CATH-INFORMED DR DECISION WILL BE MADE Tuesday BASED ON PT AND BLOOD WORK STABILITY-REQUESTED HOW COMFORT MEASURE ONLY CAN ESTABLISHED-INFORMED CAN BE DONE THROUGH HOSPICE PROGRAM,-STRESSED TO DISCUSS WITH SIBLINGS AND ARRIVE AT GROUP DECISION-THEN STRESSED EITHER PT (IF ABLE) OR LEGAL NEXT OF KIN TO GIVE CONSENT-DAUGHTER ON TELEPHONE STATED NOT AWARE OF ANY LEGAL POA OR LIVING WILL -NONE FOUND ON CHART
--- NOTE | 2018-09-03 19:10 | NUR ---
Received patient laying in bed on vent wity eyes open, assessment completed per flowsheet. Patient opens eyes spontaneously/weakly follows commands. ETT/OGT 7.5 @ 25cm secured, pulmocare @ 25ml ongoing. S1/S2 noted NSR with murmur on telemetry and HR 89, rythmic and regular. Vent settings A/C R-20 V-500 35% P-5 with O2 sat 99%, rhonchi noted bilateral upper and mid with diminished lower. Abdomen is obese/round with bowel sounds hypoactive x4, non-tender. Lower abdomen incision packed with dressing CDI. All pulses palpable with cap refill < 3 sec, skin warm/dry. Oral care/suctioning provided, repositioned for comfort. No further needs at this time, see flowsheet for details. All VSS and will continue to monitor.
--- NOTE | 2018-09-03 20:53 | NUR ---
Patient resting in bed on vent with eyes closed, HS meds given without difficulty. Oral care/suctioning provided, repositioned for comfort. Patient opens eyes spontaneously/tracks movement, occasional weakly follows commands. No further needs, all VSS and will continue to monitor.
--- NOTE | 2018-09-03 23:10 | NUR ---
Reassessment completed per flowsheet, no changes noted from previous assessment. ETT/OGT secured, Pulmocare @ 25ml/hr ongoing. S1/S2 noted NSR with murmur and occasional PVC on telemetry, HR 90 rythmic and regular. Vent settings unchanged with O2 sat 99%, rhonchi noted bialteral upper and mid with diminished lower. All pulses palpable wtih cap refill < 3 sec, skin warm/dry. Oral care/suctioning provided, repositioned for comfort. No further needs at this time, see flowsheet for details. All VSS and will continue to monitor.
--- NOTE | 2018-09-03 23:40 | NUR ---
Spoke to patient Daughter via phone, updated on current status/treatment plan. Expalined plan for Cardiology to evaluate in AM for possible heart cath and remaining on vent for procedure, if patient unable to proceed with cath then physician to reevaluate. Misunderstanding occurred when discussing future extubation possiblity, attempted to clarify misunderstanding with stated understanding.
[2018-09-04] VITALS (28 sets, daily range): BP systolic 94–162; BP diastolic 38–72
--- NOTE | 2018-09-04 | NUR ---
Spoke to family via phone with call in code provided, questioned about possible extubation tomorrow. Explained reevaluation by cardiology and possible cath procedure, patient to remain on vent for procedure. Family stated understanding with no further questions at this time.
--- NOTE | 2018-09-04 00:49 | NUR ---
Patient incontinent of bowel, cleaned with full chlorhexidine bath given/linen change performed. Patient tolerated well, no further needs and will continue to monitor.
--- NOTE | 2018-09-04 03:10 | NUR ---
Reassessment completed per flowsheet, no changes noted from previous assessment. ETT/OGT secured, Pulmocare @ 30ml/hr. S1/S2 noted NSR with murmur/PVC on telemetry and HR 80, rythmic and regular. Vent settings unchanged from previous with O2 sat 98%, lung sounds clear bilateral upper and mid with diminished lower. Abdominal incision dressing CDI. All pulses weak palpable with cap refill < 3 sec, skin warm/dry. Oral care/suctioning provided, repositioned for comfort. No further needs at this time, see flowsheet for details. All VSS and will continue to monitor.
--- NOTE | 2018-09-04 05:00 | NUR ---
Patient laying in bed on vent with eyes open, no s/s of distress at this time. Oral care/suctioning provided, repositioned for comfort. No further needs at this time, all VSS and will continue to monitor.
[2018-09-04 06:35] LABS: BASOPHILS 0.2 % (0-2); EOSINOPHILS 1.7 % (0-7); HEMATOCRIT 32.3 % (36.0-48.0); HEMOGLOBIN 9.7 g/dL (12-16); IMMATURE GRANULOCYTES 0.9 % (0-5); LYMPHOCYTES 33.5 % (15-50); MCH 25.4 pg (26.0-34.0); MCV 84.6 fL (80.0-100.0); MEAN PLATELET VOLUME 9.9 fL (7.4-10.4); MONOCYTES 9.9 % (2-11); NEUTROPHILS 53.8 % (40-80); PLATELET COUNT 207 10x3/uL (130-400); RBC 3.82 10x6/uL (4.00-5.40); RDW 17.6 % (11.5-14.5); WBC 4.7 10x3/uL (4.8-10.8)
[2018-09-04 07:08] LABS: ALBUMIN 2.7 g/dL (3.4-5.0); ANION GAP 12.1 mmol/L (8-16); BILIRUBIN - TOTAL 0.67 mg/dL (0.2-1.3); CALCIUM 8.4 mg/dL (8.5-10.1); CARBON DIOXIDE 28.8 mmol/L (21.0-32.0); CREATININE - SERUM 1.5 mg/dL (0.6-1.3); MAGNESIUM - SERUM 1.4 mg/dL (1.8-2.4); PROTEIN - SERUM 5.6 g/dL (6.4-8.2)
[2018-09-04 07:09] LABS: POTASSIUM - SERUM 2.9 mmol/L (3.5-5.1)
--- NOTE | 2018-09-04 09:34 | NUR ---
Nutrition Follow Up: Pulmocare @ 30mL/hour 200mL flush ordered every 4 hours On Propofol 15mcg/kg/min Reviewed chart Weight [address] following
--- NOTE | 2018-09-04 12:36 | MORECARE ---
CASE MANAGEMENT DISCHARGE SUMMARY PATIENT: OLEG ELY UNIT: [id number] ADM DATE: 08/15/18 AGE: 67 : [birth year] SEX: F ROOM/BED: D.03 AUTHOR: SIGRID,DOC PHYSICIAN: REFERRING PHYSICIAN: ADORE COBOS MD DATE OF SERVICE: 09/04/18 Discharge Plan Patient Name: OLEG ELY Facility: [facility]:[place] : 1950 Planned Disposition: Group Home Facility Anticipated Discharge Date: Discharge Date: Expected LOS: Initial Reviewer: [id number] Initial Review Date: 08/15/2018 Generated: 09/04/18 1:36 pm Comments DCP- Discharge Planning Updated by [id number]: Deedee Seals on 09/04/18 11:[address] CM had message to call oldest daughter Kim Elmore [phone]. CM contacted Kim she stated that the family has made a decision to place patient on hospice. They do not want patient to have heart cath today. Kim stated that she could be here tomorrow for Hospice to sign paperwork. CM explained that for inpatient hospice we have a contract with [facility] unless she wanted move her mother to another facility. Kim stated that [facility] would be fine. CM contacted Arsen with [facility]. Arsen will set up time with family to meet tomorrow. CM will continue to follow and assist as needed with discharge planning / needs. DCP- Discharge Planning Updated by [id number]: Deedee Seals on 09/01/18 12:[address] 08/31: AF. Vital signs were stable and pulse Ox >90 all morning. Patient noted to become asystolic on monitor and code blue called. CPR performed, regained rhythm and pulse. Intubated and transfered to ICU. I was at bedside during arrest. Ddx of cardiopulmonary arrest includes aspiration, PE, flash pulmonary edema or primary cardiac arrthymia or ID. PE less likely on anticoagulant but cannot be excluded entirely. Vent support ABG CXR IVF Consult pulmonary CTS to evaluate critical may need trach and PEG Reconsult cardiology may need cath to r/o ischemia 09/01: AFVSS. Off pressors. BS diminished. Intubated, sedated (diprivan now on hold). AB.39/42/111 AC 20 Fi80% PEEP 5. Cr 2.5 -> 2.2. CXR with worsening edema (I/O - 261) Continue vent support Continue empiric Abx Keep I<O Cath to r/o cardiac ischemia down the road DCP- Discharge Planning Updated by [id number]: Alvaro Galaviz on 08/31/18 8:[address] Patient Name: OLEG ELY Encounter No: [id number] : 1950 Primary Insurance: [facility] MEDICARE SOLUTIONS Anticipated DC Date: Planned Disposition: Group Home Facility External Planned Provider: [facility], MEDICARE REHAB BED DCP follow-up note: CM RECEIVED CALL FROM [facility], , REFERRAL WAS RECEIVED, DISCUSSED PT'S CARE NEEDS. CM FAXED ORDERS ON DIET AND WOUND CARE WELL LATEST NURSING ASSESSMENT TO [facility] FOR REVIEW AT [phone]. CM WAITING ADMISSION DETERMINATION FROM [facility]. Alvaro Galaviz, CASE MANAGEMENT DCP- Discharge Planning Updated by [email or web address]: Alvaro Galaviz on 08/30/18 3:[address] Patient Name: OLEG ELY Encounter No: [id number] : 1950 Primary Insurance: [facility] MEDICARE SOLUTIONS Anticipated DC Date: Planned Disposition: Group Home Facility External Planned Provider: [facility], MEDICARE REHAB BED DCP follow-up note: CM RECEIVED ORDER FOR PLACEMENT. CM ATTEMPTED TO MEET WITH PT TO DISCUSS DISCHARGE NEEDS AND PLANNING . PT WAS MINIMALLY RESPONSIVE TO CM , MOSTLY STARING AT CM AND WOULD OCCAISIONALLY NOD HEAD BUT WITH NO OTHER REACTION TO QUESTIONS. CM CALLED PT'S LIAM WEBER, . CM DISCUSSED PLACEMENT OPTIONS AND LOCATIONS. LIAM HAS SIGNED CHOICE FOR [facility] WITH ICU AUTOMATED ACCESS SYSTEMS TECHNICIAN PREVIOUSLY. CM CALLED [facility], , SPOKE TO HIEN WHO REPORTS THEY CANNOT ACCEPT DUE TO WEIGHT. CM CALLED LIAM BACK AND DISCUSSED OTHER OPTIONS. LIAM INFORMED CM THAT [facility] WOULD BE SECOND CHOICE WITH ANY SENIOR LIVING IN [place] THIRD CHOICE. LIAM IS HOPEFUL THAT PT WILL RESPOND TO THERAPY SERVICES AND NOT NEED ASSISTED CARE BUT IF PT NEEDS IT, PT WILL HAVE TO STAY IN SENIOR LIVING. CHOICE COMPLETED FOR [facility] OR ANY [facility] HOME IN [place]. CM FAXED REFERRAL TO [facility] AT [phone]. PT HAS BEEN DELCINED BY [facility]. CM WAITING ON ADMISSION DETERMINATION FROM [facility]. Alvaro Galaviz, CASE MANAGEMENT DCP- Discharge Planning Updated by [id number]: Deedee Seals on 08/25/18 4:[address] CM received notice for LTACH eval. CM attempted to call daughter Yen but wasn't able to get in touch with her. CM spoke with nursing and if family called to speak to them regarding LTACH. CM later spoke with daughter Kim and gave her information on facilities that are available. She was going to check into facilities and let us know decision. CM spoke with Carmen from [facility]ACH and she stated that [facility] requires patients to be on Vent for 21 days prior to admit to LTACH facility. Patient will need to have a trach and a PEG placed prior to LTACH if still requiring vent. Nursing aware of this information and plan to let Dr. Paulino know. CM will continue to follow and assist as needed with discharge planning / needs. DCP- Discharge Planning Updated by [id number]: Deedee Seals on 08/18/18 5:[address] Patient Name: OLEG ELY Admission Status: ER Accout number: [id number] Admission Date: 08-15-2018 : 1950 Admission Diagnosis: Attending: ADORE COBOS Current LOS: 3 Anticipated DC Date: Planned Disposition: Primary Insurance: [facility] MEDICARE SOLUTIONS Discharge Planning Comments: CM met with patient's daughter's Margy Silveira [phone] and Kim Marlon [phone]. at patient's bedside she is currently sedated on vent. Daughter states that patient lives alone at the [facility] [place]. She states she has an electric wheelchair and a hospital bed but it is broken. She states she has sleep apnea and needs cpap but hasn't had sleep study. Daughter also states that patient has a personal service workers that comes in a few hours a day during week days. Aide is with [employer]. Daughter states she had hernia repair about a month ago and has been to ER several times since. Daughter's would like for patient to have Rehab prior to discharge but they stated the patient has never agreed to it in the past. Patient may need walk test prior to discharge if 02 is required. CM will continue to follow and assist as needed with discharge planning / needs. Umbrella Tipper Machine: Deedee Seals DCP- Discharge Planning Updated by [id number]: Deedee Seals on 08/16/18 3:[address] CM attempted to visit with patient regarding discharge planning/ needs. Patient currently on vent no family available. CM will continue to follow and assist as needed with discharge planning / needs DCPIA - Discharge Planning Initial Assessment Updated by [email or web address]: Deedee Seals on 08/18/18 6:17 pm * Is the patient Alert and Oriented? Yes * How many steps to enter\exit or inside your home? * PCP [facility] * [facility] * Preadmission Environment Home Alone * ADLs Partial Dependent * Partial ADLs (Assistance needed) Ambulation Bathing * Other Equipment ELICTRIC WHEELCHAIR, HOSPITAL BED- BROKEN, * List name and contact numbers for known caregivers / representatives who currently or will assist patient after discharge: YEN SILVEIRA - DAUGHTER- [phone] KIM ELMORE - DAUGHTER - [phone] * Verbal permission to speak to the caregivers and representatives has been obtained from the patient. Yes * Please name any agencies selected above. [employer] [facility] (PROVIDER) * Additional services required to return to the preadmission environment? No * Can the patient safely return to the preadmission environment? Yes * Has this patient been hospitalized within the prior 30 days at any hospital? Yes Coverage Notice Reviewer: [id number] - Alvaro Galaviz Notice Issued Date-Time: 08/30/2018 16:25 Notice Type: Patient Choice Letter Notice Delivered To: Family Member Relationship to Patient: Daughter Lugger Name: LIAM JOYCE Delivery Method: PHONE - Phone Coby Days: Prior Verbal Notification: Recipient Understood Notice: Yes Recipient Signature: Med Rec Note Co-signed by Attending: Coverage Notice Comment: [facility] OR ANY SENIOR LIVING IN [place] Last DP export: 09/01/18 12:34 p Patient Name: OLEG ELY Page 06169 at 1236 All edits/amendments must be made on the electronic document DICTATION DATE: 09/04/18 1236 MARINE ERECTOR: JEFF 09/04/18 1236 RPT#: [id number] DC DATE: STATUS: ADM IN [facility] [address] [place] [address] END OF REPORT
[2018-09-04 14:06] LABS: ANION GAP 13.9 mmol/L (8-16); CARBON DIOXIDE 27.6 mmol/L (21.0-32.0); CREATININE - SERUM 1.3 mg/dL (0.6-1.3); MAGNESIUM - SERUM 1.3 mg/dL (1.8-2.4); PHOSPHOROUS 2.4 mg/dL (2.5-4.9)
[2018-09-04 14:15] LABS: POTASSIUM - SERUM 3.5 mmol/L (3.5-5.1)
--- NOTE | 2018-09-04 17:45 | NUR ---
0730 REPORT RECAIEVED AND CARE ASSUMED OF PATIENT.. PT IS ORALLY INTUBATED AND ON VENT WIDE AWAKE.. DR MÁRQUEZ IN SEEING PT AND UPDATE IS GIVEN.SEE FLOW SHEET FOR FINDINGS.. 0830 PT REMAINS AWAKE ASSIST CONTROL ON VENTILATOR.. DIPRIVAN STARTED AT 5 MCG 0810 DIPRIVAN INCREASED TO 10 MCG 0900 DIPRI VAN INCREASED TO 15 MCG ADL DONE PER VAP PROTOCOL 0920 DR MONROY IN TO SEE PATIENT.. CASE MANAGMENT CALLING DAUGHTERS TO CONFIRM THE STATUS OF CARDIAC CATH 0945 PT FAMILY STATES TO CASE MANAGMENT THAT THEY WILL BE COMING IN TO SIGN PAPERS IN THE AM FOR PATIENT TO GO HOSPICE IN THE AM 1030 DR MONROY INFORMED OF FAMILY DECISION 1200 WITHOUT CHANGES IN PATIENT,, CONTINUE TO MONITOR AND TX PER VAP PROTOCAL 1300 PT REMAINS ON 15 MCG DIPRIVAN WIHTOUT CHANGES DOZING EASILY ROUSED 1330 LAB DRAWN FOR REPEAT POTASIUM 1500 POTASIUM AND MAG LOW 1530 POTASIUM AND MAG REPLACEMENT IN PROCESS.. 1600 I AN O DONE 1700 NO OTHER CHANGES..
--- NOTE | 2018-09-04 19:00 | NUR ---
Received patient resting in bed on vent with eyes open, assessment completed per flowsheet. Patient opens eyes spontaneously/intermittent follows commands. ETT 7.5 @ 25cm secured, OGT with Pulmocare @ 30ml/hr infusing. S1/S2 noted NSR with regular PVC on telemetry and HR 78, rythmic and regular. Vent settings A/C R-20 V-500 35% p-5 with O2 sat 98%, crackles/diminished bilateral upper and mid with diminished lower. Abdomen is obese/round with bowel sounds hypoactive x4, non-tender. Abdominal incision dressing CDI. All pulses weak palpable wtih cap refill < 3 sec, skin warm/dry. Oral care/suctioning provided, repositioned for comfort. No further needs at this time, see flowsheet for details. All VSS and will continue to monitor.
[2018-09-04 20:57] LABS: POTASSIUM - SERUM 3.6 mmol/L (3.5-5.1)
[2018-09-04 20:58] LABS: MAGNESIUM - SERUM 2.3 mg/dL (1.8-2.4)
--- NOTE | 2018-09-04 21:00 | NUR ---
No visitors at this time, HS meds given without difficulty. Oral care/suctioning provided, repositioned for comfort. No further needs and will continue to monitor.
--- NOTE | 2018-09-04 23:00 | NUR ---
Patient resting in bed with eyes closed, no changes noed from previous assessment. ETT/OGT secured, Pulmocare @ 30ml/hr ongoing. S1/S2 noted NSR with regular PVC on telemetry and HR 77, rythmic and regular. Vent settings unchanged from previous with O2 sat 98%, crackles/diminished noted bilateral upper and mid with diminished lower. Abdominal incision dressing CDI, bowel sounds hypoactive x4. Oral care/suctioning provided, repositioned for comfort. No further needs at this time, all VSS and will continue to monitor.
[2018-09-05] VITALS (10 sets, daily range): BP systolic 108–157; BP diastolic 44–71
--- NOTE | 2018-09-05 01:00 | NUR ---
Patient incontinent of bowel in bed, cleaned with full chlorhexidine bath and linen change performed. Patient tolerated well, all VSS and will continue to monitor.
--- NOTE | 2018-09-05 03:00 | NUR ---
Patient resting in bed with eyes open, no changes noted from previous assessment. Patient opens eyes/tracks, inconsistent response to stimuli. ETT/OGT secured. S1/S2 noted NSR with regular PVC on telemetry and HR 75, rythmic and regular. Vent settings unchanged with O2 sat 99%, crackles/diminished bilateral upper and mid with diminished lower. Oral care/suctioning provided, repositioned for comfort. No further needs and will continue to monitor.
[2018-09-05 05:20] LABS: ANION GAP 10.1 mmol/L (8-16); CALCIUM 8.4 mg/dL (8.5-10.1); CARBON DIOXIDE 29.1 mmol/L (21.0-32.0); CREATININE - SERUM 1.4 mg/dL (0.6-1.3); MAGNESIUM - SERUM 2.1 mg/dL (1.8-2.4); PHOSPHOROUS 2.7 mg/dL (2.5-4.9); POTASSIUM - SERUM 3.2 mmol/L (3.5-5.1)
[2018-09-05 05:26] LABS: BASOPHILS 0.2 % (0-2); EOSINOPHILS 3.5 % (0-7); HEMATOCRIT 33.3 % (36.0-48.0); IMMATURE GRANULOCYTES 0.4 % (0-5); LYMPHOCYTES 32.2 % (15-50); MCH 25.1 pg (26.0-34.0); MCV 83.7 fL (80.0-100.0); MEAN PLATELET VOLUME 9.5 fL (7.4-10.4); MONOCYTES 8.1 % (2-11); NEUTROPHILS 55.6 % (40-80); PLATELET COUNT 195 10x3/uL (130-400); RBC 3.98 10x6/uL (4.00-5.40); RDW 17.7 % (11.5-14.5); WBC 5.2 10x3/uL (4.8-10.8)
--- NOTE | 2018-09-05 07:00 | NUR ---
REPORT RECEVIED FROM THE OFF GOING RN. SEE ASSESSMENT IN THE PTS FLOW SHEET. PT SEDATED AND ON THE VENT BUT FOLLOWS SIMPLE COMMANDS. OGT PLACEMENT CHECKED AND IT IS PULLED OUT OF HER MOUTH WHENEVER I ARRIVED ON THE SHIFT. OGT REMOVED. DR MIJARES PAGED. AWAINTING CALL BACK. VSS AT THIS TIME. WILL CONT POC.
--- NOTE | 2018-09-05 09:00 | NUR ---
DR MIJARES PAGED AGAIN R/T OGT BEING DISLODGED. DR MIJARES STATED SINCE PT HAS PLANS TO GO ON HOSPICE, NOT TO PLACE ANOTHER OGT AND OK TO HOLD PO MEDS.
--- NOTE | 2018-09-05 10:28 | NUR ---
SPOKE WITH CASE MANAGMENT. SHE SPOKE WITH HOSPICE. SHE STATED THAT HOSPICE SAID THEY WILL BE AT THE PTS BEDSIDE WITH THE FAMILY AROUND 1100.
--- NOTE | 2018-09-05 11:25 | NUR ---
REPORT GIVEN TO CATALINA HOWARD IN ICU. PT TRANSFERED TO 2302.
--- NOTE | 2018-09-05 11:30 | NUR ---
HOSPICE AT BEDSIDE GIVEN UDPATE. PT ARRIVED 1140 HOSPICE SPOKE TO FAMILY AT GREAT LENGTH. NEW ORDERS RECEIVED.
--- NOTE | 2018-09-05 12:45 | NUR ---
PT TERMINAL EXTUBATION AT THIS TIME. VSS. FAMILY AT BEDSIDE, HOSPICE AT BEDSIDE. WILL CONTINUE TO MONITOR
--- NOTE | 2018-09-05 14:51 | MORECARE ---
CASE MANAGEMENT DISCHARGE SUMMARY PATIENT: OLEG ELY UNIT: [id number] ADM DATE: 08/15/18 AGE: 67 : 54 SEX: F ROOM/BED: D.2302 AUTHOR: CRISTHIAN MATTA PHYSICIAN: REFERRING PHYSICIAN: ADORE COBOS MD DATE OF SERVICE: 09/05/18 Discharge Plan Patient Name: OLEG ELY Facility: [facility]:[place] : 1950 Planned Disposition: Hospice Medical Facility Anticipated Discharge Date: Discharge Date: 09/05/2018 Expected LOS: Initial Reviewer: [id number] Initial Review Date: 08/15/2018 Generated: 09/05/18 3:50 pm Comments DCP- Discharge Planning Updated by [email or web address]: Deedee Seals on 09/05/18 1:[address] Patient Name: OLEG ELY Encounter No: [id number] : 1950 Primary Insurance: [facility] MEDICARE SOLUTIONS Anticipated DC Date: Planned Disposition: Hospice Medical Facility External Planned Provider: : DISCHARGED TO [facility] DCP follow-up note: Patient and family in agreement with discharge plan. No changes to plan. Case management will follow and assist as needed. Deedee Seals DCP- Discharge Planning Updated by [email or web address]: Deedee Selas on 09/04/18 11:[address] CM had message to call oldest daughter Kim Elmore [phone]. CM contacted Kim she stated that the family has made a decision to place patient on hospice. They do not want patient to have heart cath today. Kim stated that she could be here tomorrow for Hospice to sign paperwork. CM explained that for inpatient hospice we have a contract with [facility] unless she wanted move her mother to another facility. Kim stated that [facility] would be fine. CM contacted Arsen with [facility]. Arsen will set up time with family to meet tomorrow. CM will continue to follow and assist as needed with discharge planning / needs. DCP- Discharge Planning Updated by [id number]: Deedee Seals on 09/01/18 12:[address] 08/31: AF. Vital signs were stable and pulse Ox >90 all morning. Patient noted to become asystolic on monitor and code blue called. CPR performed, regained rhythm and pulse. Intubated and transfered to ICU. I was at bedside during arrest. Ddx of cardiopulmonary arrest includes aspiration, PE, flash pulmonary edema or primary cardiac arrthymia or IA. PE less likely on anticoagulant but cannot be excluded entirely. Vent support ABG CXR IVF Consult pulmonary CTS to evaluate critical may need trach and PEG Reconsult cardiology may need cath to r/o ischemia 09/01: AFVSS. Off pressors. BS diminished. Intubated, sedated (diprivan now on hold). AB.39/42/111 AC 20 Fi80% PEEP 5. Cr 2.5 -> 2.2. CXR with worsening edema (I/O - 261) Continue vent support Continue empiric Abx Keep I<O Cath to r/o cardiac ischemia down the road DCP- Discharge Planning Updated by [id number]: Alvaro Galaviz on 08/31/18 8:[address] Patient Name: OLEG ELY Encounter No: [id number] : 1950 Primary Insurance: [facility] MEDICARE SOLUTIONS Anticipated DC Date: Planned Disposition: Long Term Facility External Planned Provider: [facility], MEDICARE REHAB BED DCP follow-up note: CM RECEIVED CALL FROM [facility], , REFERRAL WAS RECEIVED, DISCUSSED PT'S CARE NEEDS. CM FAXED ORDERS ON DIET AND WOUND CARE WELL LATEST NURSING ASSESSMENT TO [facility] FOR REVIEW AT [phone]. CM WAITING ADMISSION DETERMINATION FROM [facility]. Alvaro Galaviz, CASE MANAGEMENT DCP- Discharge Planning Updated by [id number]: Alvaro Galaviz on 08/30/18 3:[address] Patient Name: OLEG ELY Encounter No: [id number] : 1950 Primary Insurance: [facility] MEDICARE SOLUTIONS Anticipated DC Date: Planned Disposition: Long Term Facility External Planned Provider: [facility], MEDICARE REHAB BED DCP follow-up note: CM RECEIVED ORDER FOR PLACEMENT. CM ATTEMPTED TO MEET WITH PT TO DISCUSS DISCHARGE NEEDS AND PLANNING . PT WAS MINIMALLY RESPONSIVE TO CM , MOSTLY STARING AT CM AND WOULD OCCAISIONALLY NOD HEAD BUT WITH NO OTHER REACTION TO QUESTIONS. CM CALLED PT'S LIAM WEBER, . CM DISCUSSED PLACEMENT OPTIONS AND LOCATIONS. LIAM HAS SIGNED CHOICE FOR [facility] WITH ICU DATA CLERK PREVIOUSLY. CM CALLED [facility], , SPOKE TO HIEN WHO REPORTS THEY CANNOT ACCEPT DUE TO WEIGHT. CM CALLED LIAM BACK AND DISCUSSED OTHER OPTIONS. LIAM INFORMED CM THAT [facility] WOULD BE SECOND CHOICE WITH ANY SENIOR CARE IN [place] THIRD CHOICE. LIAM IS HOPEFUL THAT PT WILL RESPOND TO THERAPY SERVICES AND NOT NEED BOILER ENGINEER CARE BUT IF PT NEEDS IT, PT WILL HAVE TO STAY IN SENIOR CARE. CHOICE COMPLETED FOR [facility] OR ANY [facility] HOME IN [place]. CM FAXED REFERRAL TO [facility] AT [phone]. PT HAS BEEN DELCINED BY [facility]. CM WAITING ON ADMISSION DETERMINATION FROM [facility]. Alvaro Galaviz, CASE MANAGEMENT DCP- Discharge Planning Updated by [id number]: Deedee Seals on 08/25/18 4:[address] CM received notice for LTACH eval. CM attempted to call denzel Leija but wasn't able to get in touch with her. CM spoke with nursing and if family called to speak to them regarding LTACH. CM later spoke with daughter Kim and gave her information on facilities that are available. She was going to check into facilities and let us know decision. CM spoke with Carmen from [facility] and she stated that [facility] requires patients to be on Vent for 21 days prior to admit to LTACH facility. Patient will need to have a trach and a PEG placed prior to LTACH if still requiring vent. Nursing aware of this information and plan to let Dr. Paulino know. CM will continue to follow and assist as needed with discharge planning / needs. DCP- Discharge Planning Updated by [id number]: Deedee Seals on 08/18/18 5:[address] Patient Name: OLEG ELY Admission Status: ER Accout number: [id number] Admission Date: 08-15-2018 : 1950 Admission Diagnosis: Attending: ADORE COBOS Current LOS: 3 Anticipated DC Date: Planned Disposition: Primary Insurance: [facility] MEDICARE SOLUTIONS Discharge Planning Comments: CM met with patient's daughter's Margy Silveira [phone] and Kim Mason [phone]. at patient's bedside she is currently sedated on vent. Daughter states that patient lives alone at the [facility]. She states she has an electric wheelchair and a hospital bed but it is broken. She states she has sleep apnea and needs cpap but hasn't had sleep study. Daughter also states that patient has a personal lines appraiser that comes in a few hours a day during week days. Aide is with [employer]. Daughter states she had hernia repair about a month ago and has been to ER several times since. Daughter's would like for patient to have Rehab prior to discharge but they stated the patient has never agreed to it in the past. Patient may need walk test prior to discharge if 02 is required. CM will continue to follow and assist as needed with discharge planning / needs. Limousine And Hearse Upholsterer: Deedee Seals DCP- Discharge Planning Updated by [email or web address]: Deedee Seals on 08/16/18 3:[address] CM attempted to visit with patient regarding discharge planning/ needs. Patient currently on vent no family available. CM will continue to follow and assist as needed with discharge planning / needs DCPIA - Discharge Planning Initial Assessment Updated by [email or web address]: Deedee Seals on 08/18/18 6:17 pm * Is the patient Alert and Oriented? Yes * How many steps to enter\exit or inside your home? * PCP [facility] * [facility] * Preadmission Environment Home Alone * ADLs Partial Dependent * Partial ADLs (Assistance needed) Ambulation Bathing * Other Equipment ELICTRIC WHEELCHAIR, HOSPITAL BED- [facility], * List name and contact numbers for known caregivers / representatives who currently or will assist patient after discharge: YEN SILVEIRA - DAUGHTER- [phone] KIM ELMORE - DAUGHTER - [phone] * Verbal permission to speak to the caregivers and representatives has been obtained from the patient. Yes * Please name any agencies selected above. [employer] (PROVIDER) * Additional services required to return to the preadmission environment? No * Can the patient safely return to the preadmission environment? Yes * Has this patient been hospitalized within the prior 30 days at any hospital? Yes Coverage Notice Reviewer: [id number] - Alvaro Galaviz Notice Issued Date-Time: 08/30/2018 16:25 Notice Type: Patient Choice Letter Notice Delivered To: Family Member Relationship to Patient: Daughter Forge Helper Name: LIAM JOYCE Delivery Method: PHONE - Phone Coby Days: Prior Verbal Notification: Recipient Understood Notice: Yes Recipient Signature: Med Rec Note Co-signed by Attending: Coverage Notice Comment: [facility] OR ANY SENIOR CARE IN [place] Last DP export: 09/04/18 11:36 a Patient Name: OLEG ELY Page 11668 at 1451 All edits/amendments must be made on the electronic document DICTATION DATE: 09/05/181449 DIRECTOR TITLE: JEFF 09/05/181449 [facility]#: [id number] [place] DATE:09/05/18 STATUS: DIS IN [facility] [address] [place] [address] END OF REPORT
--- NOTE | 2018-09-05 15:03 | MORECARE ---
CASE MANAGEMENT DISCHARGE SUMMARY PATIENT: OLEG ELY UNIT: [id number] ADM DATE: 08/15/18 AGE: 67 : 54 SEX: F ROOM/BED: D.2302 AUTHOR: CRISTHIAN MATTA PHYSICIAN: REFERRING PHYSICIAN: ADORE COBOS MD DATE OF SERVICE: 09/05/18 Discharge Plan Patient Name: OLEG ELY Facility: [facility]:[place] : 1950 Planned Disposition: Hospice Medical Facility Anticipated Discharge Date: Discharge Date: 09/05/2018 Expected LOS: Initial Reviewer: [email or web address] Initial Review Date: 08/15/2018 Generated: 09/05/18 4:03 pm Comments DCP- Discharge Planning Updated by [id number]: Deedee Seals on 09/05/18 1:[address] Patient Name: OLEG ELY Encounter No: [id number] : 1950 Primary Insurance: [facility] MEDICARE SOLUTIONS Anticipated DC Date: Planned Disposition: Hospice Medical Facility External Planned Provider: : DISCHARGED TO [facility] DCP follow-up note: Patient and family in agreement with discharge plan. No changes to plan. Case management will follow and assist as needed. Deedee Seals DCP- Discharge Planning Updated by [email or web address]: Deedee Seals on 09/04/18 11:[address] CM had message to call oldest daughter Kim Elmore [phone]. CM contacted Kim she stated that the family has made a decision to place patient on hospice. They do not want patient to have heart cath today. Kim stated that she could be here tomorrow for Hospice to sign paperwork. CM explained that for inpatient hospice we have a contract with [facility] unless she wanted move her mother to another facility. Kim stated that [facility] would be fine. CM contacted Arsen with [facility]. Arsen will set up time with family to meet tomorrow. CM will continue to follow and assist as needed with discharge planning / needs. DCP- Discharge Planning Updated by [email or web address]: Deedee Seals on 09/01/18 12:[address] 08/31: AF. Vital signs were stable and pulse Ox >90 all morning. Patient noted to become asystolic on monitor and code blue called. CPR performed, regained rhythm and pulse. Intubated and transfered to ICU. I was at bedside during arrest. Ddx of cardiopulmonary arrest includes aspiration, PE, flash pulmonary edema or primary cardiac arrthymia or NV. PE less likely on anticoagulant but cannot be excluded entirely. Vent support ABG CXR IVF Consult pulmonary CTS to evaluate critical may need trach and PEG Reconsult cardiology may need cath to r/o ischemia 09/01: AFVSS. Off pressors. BS diminished. Intubated, sedated (diprivan now on hold). AB.39/42/111 AC 20 Fi80% PEEP 5. Cr 2.5 -> 2.2. CXR with worsening edema (I/O - 261) Continue vent support Continue empiric Abx Keep I<O Cath to r/o cardiac ischemia down the road DCP- Discharge Planning Updated by [id number]: Alvaro Galaviz on 08/31/18 8:[address] Patient Name: OLEG ELY Encounter No: [id number] : 1950 Primary Insurance: [facility] MEDICARE SOLUTIONS Anticipated DC Date: Planned Disposition: Long-Term Facility External Planned Provider: [facility], MEDICARE REHAB BED DCP follow-up note: CM RECEIVED CALL FROM [facility], , REFERRAL WAS RECEIVED, DISCUSSED PT'S CARE NEEDS. CM FAXED ORDERS ON DIET AND WOUND CARE WELL LATEST NURSING ASSESSMENT TO [facility] FOR REVIEW AT [phone]. CM WAITING ADMISSION DETERMINATION FROM [facility]. Alvaro Galaviz, CASE MANAGEMENT DCP- Discharge Planning Updated by [id number]: Alvaro Galaviz on 08/30/18 3:[address] Patient Name: OLEG ELY Encounter No: [id number] : 1950 Primary Insurance: [facility] MEDICARE SOLUTIONS Anticipated DC Date: Planned Disposition: Long-Term Facility External Planned Provider: [facility], MEDICARE REHAB BED DCP follow-up note: CM RECEIVED ORDER FOR PLACEMENT. CM ATTEMPTED TO MEET WITH PT TO DISCUSS DISCHARGE NEEDS AND PLANNING . PT WAS MINIMALLY RESPONSIVE TO CM , MOSTLY STARING AT CM AND WOULD OCCAISIONALLY NOD HEAD BUT WITH NO OTHER REACTION TO QUESTIONS. CM CALLED PT'S LIAM WEBER, . CM DISCUSSED PLACEMENT OPTIONS AND LOCATIONS. LIAM HAS SIGNED CHOICE FOR [facility] WITH ICU ARCHITECTURE ANALYST PREVIOUSLY. CM CALLED [facility], , SPOKE TO HIEN WHO REPORTS THEY CANNOT ACCEPT DUE TO WEIGHT. CM CALLED LIAM BACK AND DISCUSSED OTHER OPTIONS. LIAM INFORMED CM THAT [facility] WOULD BE SECOND CHOICE WITH ANY PRISON IN [place] THIRD CHOICE. LIAM IS HOPEFUL THAT PT WILL RESPOND TO THERAPY SERVICES AND NOT NEED CHEMIST WATER PURIFICATION CARE BUT IF PT NEEDS IT, PT WILL HAVE TO STAY IN PRISON. CHOICE COMPLETED FOR [facility] OR ANY [facility] HOME IN [place]. CM FAXED REFERRAL TO [facility] AT [phone]. PT HAS BEEN DELCINED BY [facility]. CM WAITING ON ADMISSION DETERMINATION FROM [facility]. Alvaro Galaviz, CASE MANAGEMENT DCP- Discharge Planning Updated by [email or web address]: Deedee Seals on 08/25/18 4:[address] CM received notice for LTACH eval. CM attempted to call denzel Leija but wasn't able to get in touch with her. CM spoke with nursing and if family called to speak to them regarding LTACH. CM later spoke with daughter Kim and gave her information on facilities that are available. She was going to check into facilities and let us know decision. CM spoke with Carmen from [facility] and she stated that [facility] requires patients to be on Vent for 21 days prior to admit to LTACH facility. Patient will need to have a trach and a PEG placed prior to LTACH if still requiring vent. Nursing aware of this information and plan to let Dr. Paulino know. CM will continue to follow and assist as needed with discharge planning / needs. DCP- Discharge Planning Updated by [email or web address]: Deedee Seals on 08/18/18 5:[address] Patient Name: OLEG ELY Admission Status: ER Accout number: [id number] Admission Date: 08-15-2018 : 1950 Admission Diagnosis: Attending: ADORE COBOS Current LOS: 3 Anticipated DC Date: Planned Disposition: Primary Insurance: [facility] MEDICARE SOLUTIONS Discharge Planning Comments: CM met with patient's daughter's Margy Silveira [phone] and Kim Mason [phone]. at patient's bedside she is currently sedated on vent. Daughter states that patient lives alone at the [facility]. She states she has an electric wheelchair and a hospital bed but it is broken. She states she has sleep apnea and needs cpap but hasn't had sleep study. Daughter also states that patient has a personalized living manager nurse that comes in a few hours a day during week days. Aide is with [facility]. Daughter states she had hernia repair about a month ago and has been to ER several times since. Daughter's would like for patient to have Rehab prior to discharge but they stated the patient has never agreed to it in the past. Patient may need walk test prior to discharge if 02 is required. CM will continue to follow and assist as needed with discharge planning / needs. Enterprise Systems Administrator: Deedee Seals DCP- Discharge Planning Updated by [email or web address]: Deedee Seals on 08/16/18 3:[address] CM attempted to visit with patient regarding discharge planning/ needs. Patient currently on vent no family available. CM will continue to follow and assist as needed with discharge planning / needs DCPIA - Discharge Planning Initial Assessment Updated by [email or web address]: Deedee Seals on 08/18/18 6:17 pm * Is the patient Alert and Oriented? Yes * How many steps to enter\exit or inside your home? * PCP D[facility] * Pharmacy [facility] * Preadmission Environment Home Alone * ADLs Partial Dependent * Partial ADLs (Assistance needed) Ambulation Bathing * Other Equipment ELICTRIC WHEELCHAIR, HOSPITAL BED- [facility], * List name and contact numbers for known caregivers / representatives who currently or will assist patient after discharge: YEN SILVEIRA - DAUGHTER- [phone] KIM ELMORE - DAUGHTER - [phone] * Verbal permission to speak to the caregivers and representatives has been obtained from the patient. Yes * Please name any agencies selected above. [employer] [facility] - [facility] (PROVIDER) * Additional services required to return to the preadmission environment? No * Can the patient safely return to the preadmission environment? Yes * Has this patient been hospitalized within the prior 30 days at any hospital? Yes Coverage Notice Reviewer: [id number] - Alvaro Galaviz Notice Issued Date-Time: 08/30/2018 16:25 Notice Type: Patient Choice Letter Notice Delivered To: Family Member Relationship to Patient: Daughter Singing Teacher Name: LIAM JOYCE Delivery Method: PHONE - Phone Coby Days: Prior Verbal Notification: Recipient Understood Notice: Yes Recipient Signature: Med Rec Note Co-signed by Attending: Coverage Notice Comment: [facility] OR ANY PRISON IN [place] Last DP export: 09/05/18 1:51 p Patient Name: OLEG ELY Page 09185 at 1503 All edits/amendments must be made on the electronic document DICTATION DATE: 09/05/18 150 MANAGER NET: JEFF 09/05/18 1503 RPT#: [id number] [place] DATE:09/05/18 STATUS: DIS IN [facility] [address] [place] [address] END OF REPORT
== END 2018-09-05 12:51 | disposition hospice, inpatient (51) | DRG 870 ==
LOC: D.ICU → EDBD 07:41 → D.ER 07:41 → D.M2 10:38 → D.CVICU 10:38 → D.ICU 10:38 → D.EDHOLD 10:38 → D.ICU 11:34 → D.M2 08-29 14:42 → D.CVICU 08-31 09:34 → D.ICU 09-05 11:08
PROVIDERS: Family Medicine; Internal Medicine Nephrology; Internal Medicine Pulmonary Disease; ADMIT Internal Medicine Nephrology; ATTEND Internal Medicine Nephrology
PROC: 05HY33Z Insertion of Infusion Device into Upper Vein, Percutaneous Approach (ICD-10-PCS; principal; 2018-08-15)
PROC: 5A1955Z Respiratory Ventilation, Greater than 96 Consecutive Hours (ICD-10-PCS; 2018-08-15)
PROC: 0BH17EZ Insertion of Endotracheal Airway into Trachea, Via Natural or Artificial Opening (ICD-10-PCS; 2018-08-15)
PROC: 0W9930Z Drainage of Right Pleural Cavity with Drainage Device, Percutaneous Approach (ICD-10-PCS; 2018-08-15)
PROC: 0B998ZZ Drainage of Lingula Bronchus, Via Natural or Artificial Opening Endoscopic (ICD-10-PCS; 2018-08-19)
PROC: 0B938ZZ Drainage of Right Main Bronchus, Via Natural or Artificial Opening Endoscopic (ICD-10-PCS; 2018-08-19)
PROC: 0B978ZZ Drainage of Left Main Bronchus, Via Natural or Artificial Opening Endoscopic (ICD-10-PCS; 2018-08-19)
PROC: 0W9F3ZZ Drainage of Abdominal Wall, Percutaneous Approach (ICD-10-PCS; 2018-08-20)
PROC: 0J983ZZ Drainage of Abdomen Subcutaneous Tissue and Fascia, Percutaneous Approach (ICD-10-PCS; 2018-08-20)
DX: A41.9 Sepsis, unspecified organism (principal); I50.23 Acute on chronic systolic (congestive) heart failure; J96.01 Acute respiratory failure with hypoxia; J18.9 Pneumonia, unspecified organism; J93.9 Pneumothorax, unspecified; Z68.44 Body mass index [BMI] 60.0-69.9, adult; E87.2 Acidosis; L02.211 Cutaneous abscess of abdominal wall; N17.9 Acute kidney failure, unspecified; J81.1 Chronic pulmonary edema; I11.0 Hypertensive heart disease with heart failure; I27.20 Pulmonary hypertension, unspecified; E03.9 Hypothyroidism, unspecified; K21.9 Gastro-esophageal reflux disease without esophagitis; E11.40 Type 2 diabetes mellitus with diabetic neuropathy, unspecified; E66.01 Morbid (severe) obesity due to excess calories; D50.9 Iron deficiency anemia, unspecified; K80.20 Calculus of gallbladder without cholecystitis without obstruction; I25.10 Atherosclerotic heart disease of native coronary artery without angina pectoris; E87.5 Hyperkalemia; R22.31 Localized swelling, mass and lump, right upper limb

== ENCOUNTER 2018-09-05 12:43 | Inpatient (IN) | payer OTHER ==
[~2018-09-05] VITALS: Ht 157.5 cm; Wt 150.1 kg
[2018-09-05 13:52] VITALS: BP 139/66; BMI 60.7
[2018-09-05 14:00] VITALS: BP 146/59
--- NOTE | 2018-09-05 14:14 | NUR ---
CONTINUOUS CREDIT OFFICER STARTED PER ORDER. GIVEN ICE CHIPS PER REQUEST. DENIES NEEDS. FAMILY AT BEDSIDE. WILL CONTINUE TO MONTIOR
--- NOTE | 2018-09-05 14:52 | MORECARE ---
CASE MANAGEMENT DISCHARGE SUMMARY PATIENT: OLEG ELY UNIT: [id number] ADM DATE: 09/05/18 AGE: 67 : [birth year] SEX: F ROOM/BED: D.2302 AUTHOR: CRISTHIAN MATAT PHYSICIAN: REFERRING PHYSICIAN: LAYO MCCLAIN MD DATE OF SERVICE: 09/05/18 Discharge Plan Patient Name: OLEG ELY [facility] : 1950 Planned Disposition: Anticipated Discharge Date: Discharge Date: Expected LOS: Initial Reviewer: [email or web address] Initial Review Date: 09/05/2018 Generated: 09/05/18 3:52 pm Patient Name: OLEG ELY Page [id number] at 1452 All edits/amendments must be made on the electronic document DICTATION DATE: 09/05/181450 STEWARD/STEWARDESS THIRD: JEFF 09/05/181450 RPT#: [id number] DC DATE: STATUS: ADM IN [facility] [address] [place] [address] END OF REPORT
[2018-09-05 15:00] VITALS: BP 146/59
--- NOTE | 2018-09-05 16:19 | NUR ---
PATIENT ARRIVED TO THE FLOOR WITH THE ICU STAFF. PATIENT TRANSFERRED TO THE BED, JOYCE TO BEDSIDE GRAVITY, ACOUSTICS TEACHER CLEANED THE PATIENT AND PLACED PADS UNDER HER AFTER A LARGE BM. FAMILY AT BEDSIDE
--- NOTE | 2018-09-05 18:37 | NUR ---
PATIENT RESTING IN BED, EYES OPEN, LIGHTS OFF. FAMILY NOT PRESENT AT THIS TIME. COMMERCIAL REAL ESTATE PARALEGAL INFUSING WITH MORPHINE
[2018-09-05 20:00] VITALS: BP 106/53
--- NOTE | 2018-09-05 22:12 | NUR ---
PT SITTING IN BED LOWEST POSITION, PILLOWS PROPPING ARMS UP TO REDUCE EDEMA AND FOR COMFORT, EYES CLOSED, AROUSES EASILY TO VOICE, NO NEEDS NOTED, FLUIDS AND CALL LIGHT WITHIN REACH
--- NOTE | 2018-09-06 01:54 | NUR ---
PT ABT CEFAZOLIN COMPLETED, DISCONNECTED, FLUSHED WITH NS, ALCOHOL CAPPED, PATENT ADHERED TO SKIN
--- NOTE | 2018-09-06 07:00 | NUR ---
INITIAL ROUNDING, PATIENT RESTING IN BED WITH EYES CLOSED, SALES MARKETING COORDINATOR INFUSING. NO FAMILY IN THE ROOM.
[2018-09-06 07:53] VITALS: BP 113/49
[2018-09-06 10:25] VITALS: Ht 157.5 cm; Wt 150.1 kg
[2018-09-06 19:00] VITALS: BP 128/70
--- NOTE | 2018-09-06 19:15 | NUR ---
RECEIVED PT. LYING IN BED SUPINE HOB 10 DEGREES EYES OPEN ALERT TO SELF AND PLACE. REORIENTED TO TIME AND SITUATION. NO FAMILY AT BEDSIDE. SHIFT ASSESSMENT COMPLETE. CALL LIGHT WITHIN REACH, FALL PRECAUTIONS IN PLACE. WILL CONTINUE TO MONITOR
--- NOTE | 2018-09-06 21:15 | NUR ---
REPOSITIONED PT TO RIGHT SIDE PROPPED WITH PILLOWS. DENIES ANY PAIN OR NEEDS AT THIS TIME. NO FAMILY AT BEDSIDE NOTED. CALL LIGHT WITHIN REACH, FALL PRECAUTIONS IN PLACE WILL CONTINUE TO MONITOR
--- NOTE | 2018-09-07 01:23 | NUR ---
PARTIAL BEDBATH AND JOYCE CARE PERFORMED. POSITIONED TO LEFT SIDE. PERFORMED ORAL CARE. CALL LIGHT WITHIN REACH, FALL PRECAUTIONS IN PLACE
--- NOTE | 2018-09-07 03:11 | NUR ---
ADMINISTERED 1MG ATIVAN PT VERY RESTLESS AND ANXIOUS TRYING TO CRAWL OUT OF BED AND CALLING OUT FOR YEN. UNABLE TO REDIRECT AT THIS TIME.
--- NOTE | 2018-09-07 06:05 | NUR ---
INITIAL ROUNDING, THE PATIENT IS IN BED ON HER LEFT SIDE, EYES CLOSED, EVEN RESPIRATIONS. CALL LIGHT IN REACH
--- NOTE | 2018-09-07 08:00 | NUR ---
PATIENT IS CALLING OUT, AND TRYING TO GET OVER THE SIDE RAIL. ATIVAN GIVEN ORDERED . PATIENT REORIENTATED.
[2018-09-07 08:03] VITALS: BP 126/74
[2018-09-07 20:00] VITALS: BP 130/63
--- NOTE | 2018-09-08 02:52 | NUR ---
PT ASSESSED AT THE BEGINNING OF THE SHIFT. SHE WAS RESTLESS IN BED AND THROWING OFF COVERS AND PILLOWS ONTO THE FLOOR. SHE WAS RECOVERED AND PULLED UP SEVERAL TIMES. SHE ALSO WAS REQUESTING WATER AND THIS WAS GIVEN TO HER. AFTER A WHILE TO HOPEFULLY HELP HER CALM DOWN AND SLEEP SHE WAS GIVEN ATIVAN ORDERED. THIS DID NOT SEEM TO CHANGE HER BEHAIVOR AT ALL. AT 0045, JUST 15 MINUTES AFTER HER LAST CHECK THE BED ALARM WENT OFF AND SHE WAS FOUND SITTING UP ON THE FLOOR AGAINST THE SIDE OF THE BED. ASSIST WAS CALLED TO GET HER UP TO BED AND THEN THE MD WAS CALLED, MINGO ROSENTHAL AND BOTH HER DAUGHTERS. MINGO PLACED HER ON MONITORING FOR ANY PROBLEMS DUE TO THE FACT THAT SHE STATED SHE HIT HER HEAD. NEITHER DAUGHTER ANSWERED THE PHONE BUT A MESSAGE WAS LEFT ON LEIGHA'S PHONE. WILL CONTINUE TO MONITOR FOR SAFETY.
[2018-09-08 04:00] VITALS: BP 103/66
[2018-09-08 08:04] VITALS: BP 104/42
--- NOTE | 2018-09-08 18:41 | NUR ---
DRESSING CHANGED TO RIGHT IJ. JOYCE CATH ALSO CHANGED DUE TO LEAKING, 16 F
[2018-09-08 20:00] VITALS: BP 135/73
[2018-09-09] VITALS: BP 135/66
[2018-09-09 04:00] VITALS: BP 129/64
--- NOTE | 2018-09-09 07:14 | NUR ---
ROUNDING DONE WITH PATIENT BEING HALF COVERED WITH GOWN. IN REPORT, SHE STAYS NAKED. RIGHT JUGLUAR TRIALYSIS SEEN WITH NURSE PORT, SALINE LOCK. PATIENT IS DNR CODE STATUS IN REPORT. ON ROOM AIR AT THIS TIME. JOYCE CATH PATENT WITH ODETTE COLORED URINE SEEN. VERY OBESE. DRESSING SEEN TO LOWER ABDOMINAL AREA, HEALING ABDOMINAL INCISION. PATIENT IS CONFUSED. ANTHONY ALARM IS ON AND IN USE.
[2018-09-09 07:58] VITALS: BP 174/82
--- NOTE | 2018-09-09 09:10 | NUR ---
DR MCCLAIN AND MINGO IN TO SEE PATIENT. HE ASKED THAT I CALL THE [facility] AND HAVE THEM CALL HIM AT [phone] TO SEE ABOUT PLANS FOR HOME HOSPICE OR [facility].
--- NOTE | 2018-09-09 09:37 | NUR ---
0922-CALLED YEN GUZMAN [phone] WITH NO ANSWER. CALLED LEIGHA WILSON [phone] AND SPOKE TO HER. SHE STATES THAT SHE WILL YEN TO CALL DR BARRERA AND I GAVE THEM THE NUMBER OF [phone].
--- NOTE | 2018-09-09 10:09 | NUR ---
LEIGHA TO CALL BACK AND STATE THAT SHE CALLED DR SAENZ AND THAT HE CAN NOT RETURN THEIR CALL UNTIL TUESDAY.
--- NOTE | 2018-09-09 11:19 | NUR ---
RESTING WITH EYES CLOSED, RESP ARE EVEN. STILL NOT IN A GOWN, COVERED LOWER BODY WITH FLAT SHEET. ANTHONY MAT ALARM ON AND IN USE.
--- NOTE | 2018-09-09 12:46 | NUR ---
PATIENT STATES THAT SHE DOES NOT WANT TO EAT. TOOK A FEW SIPS OF ICE TEA, COVERED AGAIN WITH FLAT SHEET BODY WAS EXPOSED. ANTHONY MAT ALARM IS ON AND IN USE.
--- NOTE | 2018-09-09 13:20 | NUR ---
YEN, DAUGHTER IN ROOM AND MADE AWARE OF WHAT MEDS HAVE BEEN GIVEN. SHE STATES THAT PATIENT HAS NOT WALKED IN OVER A MONTH.
--- NOTE | 2018-09-09 15:36 | NUR ---
USING TRENDELENBERG POSITION, PATIENT PULLED UP WITH ASSIST.
--- NOTE | 2018-09-09 17:02 | NUR ---
FAN PLACED IN ROOM AND TURNED ON SO TO CIRCULATE AIR SO MAYBE PATIENT WILL STAY COVERED WITH A FLAT SHEET.
--- NOTE | 2018-09-09 17:56 | NUR ---
PATIENT IS MORE ALERT AT THIS TIME. ATE HALF HER SUPPER WITH FEEDING ASSISTANCE. ANTHONY MAT ALARM IS ON AND IN USE.
--- NOTE | 2018-09-09 19:00 | NUR ---
PATIENT RESTING IN BED WITH NO S/S OF DISTRESS. BED IN LOWEST POSITION AND CALL LIGHT WITHIN REACH. ENCOURAGED THE PATIENT TO CALL IF SHE HAS NEEDS. WILL CONTINUE TO MONITOR.
[2018-09-09 20:00] VITALS: BP 119/62
--- NOTE | 2018-09-10 00:25 | NUR ---
PATIENT RESTING IN BED WITH NO S/S OF DISTRESS. CHANGED PATIENT'S LINENS WITH BRYAN CAPELLAN. PATIENT'S BED IN LOWEST POSITION, CALL LIGHT WITHIN REACH, AND BED ALARM ON. ENCOURAGED THE PATIENT TO CALL IF SHE HAS NEEDS. WILL CONTINUE TO MONITOR.
--- NOTE | 2018-09-10 07:31 | NUR ---
ROUNDING DONE WITH PATIENT STATING "I FEEL SO LOST". SHE IS ANXIOUS LOOKING AND TRYING TO PULL AT HER RIGHT IJ TRIALYSIS WITH NURSE PORT. ATIVAN GIVEN TO SEE IF IT WILL HELP HER CALM DOWN SOME. JOYCE CATH PATENT WITH CLOUDY CONCENTRATED URINE. MORBID OBESE, DOES NOT WANT TO KEEP SHEET ON. ANTHONY MAT AND BED ALARM ON AND IN USE.
[2018-09-10 07:56] VITALS: BP 116/66
--- NOTE | 2018-09-10 08:51 | NUR ---
RIGHT IJ TRIALYSIS DRESSING CHANGED USING STERILE TECHNIQUE. ABDOMINAL DRESSING CHANGED WITH GUAZE REMOVED FROM OPENING MEASURES 2.5 CM X 2.0 CM X 4.0 CM DEEP. CLEAN WOUND BED. LIGHT GREEN/YELLOW DRAINAGE TO GUAZE THAT WAS REMOVED. LIGHTLY PACKED WITH NS W-D QUAZE AND COVERED WITH DRY 4 X 4 AND MEDIPORE TAPE. BOTH DRESSINGS DATED. TOLERATED WELL.
--- NOTE | 2018-09-10 11:06 | NUR ---
PATIENT PULLING AT LINES AGAIN, AGITATED. ATIVAN GIVEN. LINENS CHANGED AND YELLOW GOWN PLACED ON PATIENT. ANTHONY AND BED ALARM SET AND ON.
[2018-09-10 12:06] VITALS: BP 120/60
--- NOTE | 2018-09-10 12:27 | NUR ---
PATIENT SEEMS TO BE PAIN FREE AT THIS TIME. RESTING WITH EYES CLOSED AND MOUTH OPEN. YELLOW GOWN IS ON LOWER HALF OF BODY. WILL CONTINUE TO MONITOR.
--- NOTE | 2018-09-10 14:29 | NUR ---
DR MCCLAIN IN TO SEE PATIENT.
--- NOTE | 2018-09-10 14:51 | NUR ---
DAUGHTER LEIGHA IN ROOM AND I ANSWERED QUESTIONS TO STATUS AND MEDS GIVEN.
--- NOTE | 2018-09-10 16:29 | NUR ---
PATIENT IS RESTING WITH EYES CLOSED, LIGHTLY SNORING. ANTHONY MAT AND BED ALARM ON AND IN USE. WILL MONITOR.,
--- NOTE | 2018-09-10 19:05 | NUR ---
PATIENT RESTING IN BED AND DENIES NEEDS AT THIS TIME. BED IN LOWEST POSITION, CALL LIGHT WITHIN REACH, AND BED ALARM ON. ENCOURAGED THE PATIENT TO CALL IF SHE HAS NEEDS. WILL CONTINUE TO MONITOR.
--- NOTE | 2018-09-11 00:30 | NUR ---
PATIENT RESTING IN BED WITH EYES CLOSED AND NO S/S OF DISTRESS. BED IN LOWEST POSITION, CALL LIGHT WITHIN REACH, AND BED ALARM ON. WILL CONTINUE TO MONITOR.
[2018-09-11 07:26] VITALS: BP 126/60
--- NOTE | 2018-09-11 08:41 | NUR ---
AM ROUNDS COMPLETED. INTRODUCED MYSELF TO PT PRIMARY RN FOR TODAYS SHIFT. PT IS A&O SLOUCHED DOWN IN BED AND NAKED. LINENS ARE SOILED AND JOYCE CATH IS KINKED. NEW STAT LOCK SECURED TO L.INNER THIGH AND JOYCE NOW DRAINING TO GRAVITY CLOUDY CONCENTRATED URINE. COMPLETE BED CHANGE PROVIDED AND PULLED PT UP IN BED FOR COMFORT. PLACED PILLOWS UNDER BILAT ARMS WELL UNDER LEGS FOR COMFORT. UPON TURNING PT NOTED FRICTION SHEAR ON HER BUTTOCKS R.CHEEK, APPLIED BUTT PASTE AND WILL TRY TO KEEP HER TURNED AND DRY. PT VOICED THANKS AND STATES SHE IS MORE COMFORTABLE NOW. PT DENIES WANTING HER PAIN MEDICATION AT THIS TIME BUT WOULD LIKE SOME MILK. PROVIDED PT WITH MILK TO DRINK AND SHE IS WATCHING TV QUIETLY IN BED. NO CURRENT NEEDS, NO FAMILY PRESENT. WILL CTM.
--- NOTE | 2018-09-11 11:39 | NUR ---
PT IS SITTING UP IN BED RESTING QUIETLY WATCHING TV. PT C/O BEING "FREEZING" HOWEVER EVERYTIME WE COVER HER AND PLACE HER GOWN ON SHE PULLS IT OFF. REPLACED HER GOWN AND GAVE HER TWO BLANKETS AND SHE VOICED THANKS AND STATES SHE IS WARM NOW. PT DENIES BEING HUNGRY OR THIRSTY AT THIS TIME. CL IN REACH, BED IN LOWEST, SIDE RAILS X2. WILL CTM.
--- NOTE | 2018-09-11 14:54 | NUR ---
PT WIDE AWAKE IN BED C/O BEING THIRSTY. PT REQUESTED A COKE AND WAS ABLE TO DRINK IT ENTIRELY WITHOUT ANY DIFFICULTIES. REPOSITIONED PT UP IN BED FOR COMFORT AND CHANGED OUT WET LINENS. JOYCE CATHETER WAS FALLING OUT AND STAT LOCK SOILED, REPLACED JOYCE WITH A 16FR CATHETER USING STERILE TECHNIQUE. STAT LOCK SECURED TO R.INNER THIGH. IMMEDIATE RETURN OF CLOUDY CONCENTRATED URINE DRAINING TO GRAVITY BAG OFF R.SIDE OF BED. PT DENIES ANY CURRENT PAIN OR BEING HUNGRY AT THIS TIME. CL IN REACH. WILL CTM.
--- NOTE | 2018-09-11 15:35 | NUR ---
PT NOW AGREED TO RECIEVING A PAIN PILL SHE IS UNCOMFORTABLE AFTER HER BED CHANGE. SMALL INCONTINENT BOWEL EPISODE CLEANED UP. PT VOICED THANKS AND IS SITTING UP IN BED WATCHING TV AT THIS TIME. PT DENIES ANY FURTHER NEEDS. CL IN REACH, BED IN LOWEST, SIDE RAILS X2. WILL CTM.
--- NOTE | 2018-09-11 19:10 | NUR ---
PATIENT RESTING IN BED WITH EYES CLOSED AND NO S/S OF DISTRESS. BED IN LOWEST POSITION AND CALL LIGHT WITHIN REACH. WILL CONTINUE TO MONITOR.
[2018-09-11 20:00] VITALS: BP 118/64
--- NOTE | 2018-09-11 20:35 | NUR ---
PULLED ATIVAN PER PATIENT REQUEST. WHEN I WENT BACK IN THE ROOM TO ADMINISTER ATIVAN THE PATIENT WAS RESTING WITH EYES CLOSED. WOKE THE PATIENT TO ASK IF SHE STILL WANTED THE ATIVAN AND SHE STATED NO AND CLOSED HER EYES. NO S/S OF DISTRESS. BED IN LOWEST POSIITON, CALL LIGHT WITHIN REACH, AND BED ALARM ON. ENCOURAGED THE PATIENT TO CALL IF SHE HAS NEEDS. WILL CONTINUE TO MONITOR.
[2018-09-12] VITALS: BP 118/56
[2018-09-12 04:00] VITALS: BP 120/66
--- NOTE | 2018-09-12 07:10 | NUR ---
INITIAL ROUNDING ON THE PATIENT, SHE IS RESTING WITH EYES CLOSED AND NAKED, NO BLANKET COVERING HER. COVERED THE PATIENT WITH SHEET, SHE WOKE UP AND WAS ASKED IF SHE HAD PAIN, AND SHE DENIES PAIN. SHE DENIES FEELING HOT, NO S/S OF SOB/DISTRESS
[2018-09-12 08:20] VITALS: BP 125/61
--- NOTE | 2018-09-12 08:24 | MORECARE ---
CASE MANAGEMENT DISCHARGE SUMMARY PATIENT: OLEG ELY UNIT: [id number] ADM DATE: 09/05/18 AGE: 67 : 52 SEX: F ROOM/BED: D.1201 AUTHOR: CRISTHIAN MATTA PHYSICIAN: REFERRING PHYSICIAN: LAYO MCCLAIN MD DATE OF SERVICE: 09/12/18 Discharge Plan Patient Name: OLEG ELY Facility: [facility]:[place] : 1950 Planned Disposition: Anticipated Discharge Date: Discharge Date: Expected LOS: Initial Reviewer: [id number] Initial Review Date: 09/05/2018 Generated: 09/12/18 9:24 am Comments DCP- Discharge Planning Updated by [id number]: Lynda Vazquez on 09/12/18 7:[address] Patient Name: OLEG ELY Admission Status: Elective Accout number: [id number] Admission Date: 09-05-2018 : 1950 Admission Diagnosis:ENCOUNTER FOR PALLIATIVE CARE Attending: LAYO MCCLAIN Current LOS: 7 Anticipated DC Date: Planned Disposition: Primary Insurance: [facility] Discharge Planning Comments: PT IS INPATIENT HOSPICE. [facility] SOC[facility] WORKER IS WORKING ON SNF PLACEMENT. Accountant Machine Processing: Lynda Vazquez Last DP export: 09/05/18 1:52 p Patient Name: OLEG ELY Page 64119 at 0824 All edits/amendments must be made on the electronic document DICTATION DATE: 09/12/18822 ORTHOPAEDIC DOCTOR: JEFF 09/12/18822 RPT#: [id number] DC DATE: STATUS: ADM IN [facility] [address] [place] [address] END OF REPORT
--- NOTE | 2018-09-12 08:30 | MORECARE ---
CASE MANAGEMENT DISCHARGE SUMMARY PATIENT: OLEG ELY UNIT: [id number] ADM DATE: 09/05/18 AGE: 67 : 52 SEX: F ROOM/BED: D.1201 AUTHOR: CRISTHIAN MATTA PHYSICIAN: REFERRING PHYSICIAN: LAYO MCCLAIN MD DATE OF SERVICE: 09/12/18 Discharge Plan Patient Name: OLEG ELY Facility: [facility]:[place] : 1950 Planned Disposition: Anticipated Discharge Date: Discharge Date: Expected LOS: Initial Reviewer: [email or web address] Initial Review Date: 09/05/2018 Generated: 09/12/18 9:30 am Comments DCP- Discharge Planning Updated by [id number]: Lynda Vazquez on 09/12/18 7:[address] Patient Name: OLEG ELY Admission Status: Elective Accout number: [id number] Admission Date: 09-05-2018 : 1950 Admission Diagnosis:ENCOUNTER FOR PALLIATIVE CARE Attending: LAYO MCCLAIN Current LOS: 7 Anticipated DC Date: Planned Disposition: Primary Insurance: [facility] Discharge Planning Comments: PT IS INPATIENT HOSPICE. [facility] SOCAIL WORKER IS WORKING ON SNF PLACEMENT. Charge Auditor: Lynda Vazquez Last DP export: 09/12/18 7:24 a Patient Name: OLEG ELY Page 61890 at 0830 All edits/amendments must be made on the electronic document DICTATION DATE: 09/12/18829 MEDICINE MAN: JEFF 09/12/18 08 RPT#: [id number] DC DATE: STATUS: ADM IN [facility] [address] [place] [address] END OF REPORT
--- NOTE | 2018-09-12 18:33 | NUR ---
PATIENT CLEAND AND GIVEN ANOTHER BED BATH AFTER AN INCONT LARGE BM
[2018-09-12 21:34] VITALS: BP 128/67
[2018-09-13] VITALS: BP 125/66
[2018-09-13 04:00] VITALS: BP 123/66
--- NOTE | 2018-09-13 04:46 | NUR ---
PT IN BED IN LOW FOWLERS POSITION. ALERT AND ORIENTED X4. RESPIRATIONS EVEN AND UNLABORED. VS STABLE AND AFEBRIL. NO CUES OF DISTRESS NOTED. DENIES ANY OTHER NEEDS AT THIS TIME. BED LOW, SIDE RAILS UP X2. CALL LIGHT IN REACH. WILL CONTINUE TO MONITOR.
--- NOTE | 2018-09-13 07:11 | NUR ---
INITIAL ROUNDING, PATIENT IS AWAKE AND RESTING IN BED WITH HOB AT 40 DEGREES, PATIENT REPORTS PAIN "HURTING ALL OVER". SHE IS NAKED, COVERED WITH BLANKET. BED ALARM ON, CALL LIGHT IN REACH
[2018-09-13 08:56] VITALS: BP 139/55
--- NOTE | 2018-09-13 13:43 | NUR ---
CALLED [facility] AND GAVE REPORT TO BRYAN BROWNE. PATIENT IS TO GO TO BED 500. THE AMBULANCE WILL BE CALLED FOR TRANSPORT SOON IT IS VERIFIED OF THE BIG BOY BED BEING IN THE ROOM.
--- NOTE | 2018-09-13 14:52 | NUR ---
THE PATIENT WAS GIVEN A BED BATH AFTER A LARGE INCONT BM. CALMOSEPTIEN APPLIED TO THE ENTIRE BUTTOCKS, DRESSING TO LOWER ABD CHANGED
--- NOTE | 2018-09-13 15:03 | NUR ---
TRIALYSIS CATH PULLED FROM THE RIGHT NECK AREA PER PROTOCOL/POLICY, PATIENT TOLERATED WELL, STERILE DRSG APPLIED.
--- NOTE | 2018-09-14 09:50 | MORECARE ---
CASE MANAGEMENT DISCHARGE SUMMARY PATIENT: OLEG ELY UNIT: [id number] ADM DATE: 09/05/18 AGE: 67 : 54 SEX: F ROOM/BED: D.1201 AUTHOR: CRISTHIAN MATTA PHYSICIAN: REFERRING PHYSICIAN: LAYO MCCLAIN MD DATE OF SERVICE: 09/14/18 Discharge Plan Patient Name: OLEG ELY Facility: [facility]:[place] : 1950 Planned Disposition: Anticipated Discharge Date: Discharge Date: 09/13/2018 Expected LOS: Initial Reviewer: [email or web address] Initial Review Date: 09/05/2018 Generated: 09/14/18 10:50 am Comments DCP- Discharge Planning Updated by [email or web address]: Lynda Vazquez on 09/12/18 7:[address] Patient Name: OLEG ELY Admission Status: Elective Accout number: [id number] Admission Date: 09-05-2018 : 1950 Admission Diagnosis:ENCOUNTER FOR PALLIATIVE CARE Attending: LAYO MCCLAIN Current LOS: 7 Anticipated DC Date: Planned Disposition: Primary Insurance: [facility] Discharge Planning Comments: PT IS INPATIENT HOSPICE. [facility]S SOCAIL WORKER IS WORKING ON SNF PLACEMENT. Emergency Technician: Lynda Vazquez Last DP export: 09/12/18 7:30 a Patient Name: OLEG ELY Page 29419 at 0950 All edits/amendments must be made on the electronic document DICTATION DATE: 09/14/18948 GRAIN ELEVATOR AGENT: JEFF 09/14/1849 RPT#: [id number] DC DATE:09/13/18 STATUS: DIS IN [facility] [address] [place] [address] END OF REPORT
== END 2018-09-13 15:41 | disposition home health service (06) | DRG 951 ==
LOC: D.ICU 12:43 → D.M3 13:44
PROVIDERS: ADMIT Legal Medicine; ATTEND Legal Medicine
DX: Z51.5 Encounter for palliative care (principal)

== ENCOUNTER 2019-03-27 18:18 | Inpatient (IN) | payer MEDICARE, MEDICAID ==
[~2019-03-27] VITALS: Ht 157.5 cm; Wt 116.5 kg
[2019-03-27] VITALS (10 sets, daily range): BP systolic 125–156; BP diastolic 53–95; BMI 47.1
--- NOTE | ~2019-03-27 | CN ---
PATIENT NAME:OLEG ELY MEDICAL RECORD: [id number] : 54 LOCATION:JJ.2311 ADMIT DATE: 03/27/19 ACCOUNT: [id number] CONSULTING PHYSICIAN: JEREMY PALOMINO MD REFERRING PHYSICIAN: ADORE COBOS MD DATE OF CONSULTATION: 03/28/2019 HISTORY OF PRESENT ILLNESS: A 68-year-old female with history of critical , pulmonary hypertension, history of hypertension. Previously by the chart, the patient was on hospice, hard to tell if this was revoked. She was transferred from a shelter, promptly intubated. We are asked to see her concerning her cardiovascular status. PAST MEDICAL HISTORY: Includes: 1. History of hypertension. 2. Aortic stenosis. 3. Pulmonary hypertension. ALLERGIES: ZOLOFT, LYRICA. MEDICATIONS: Include albuterol. SOCIAL HISTORY: Unobtainable due to the patient factors. REVIEW OF SYSTEMS: Unobtainable due to the patient factors. PHYSICAL EXAMINATION: GENERAL: Intubated and sedated, no acute distress. VITAL SIGNS: Blood pressure 124/64, pulse 86 and regular. HEENT: Normocephalic, atraumatic. NECK: No bruits noted. HEART: Regular, III/ systolic ejection murmur. LUNGS: Fair air excursion. ABDOMEN: Soft, nontender. EXTREMITIES: Pulses 2+, 2+ edema. IMPRESSION: Critical . Given her overall constitution, certainly not a candidate for open valve repair, was previously on hospice. Certainly, if she was to continue hospice, would not disagree with this management. We will try to diurese as tolerated. TRANSINT:[id number] Voice Confirmation ID: [id number] DOCUMENT ID: [id number] JEREMY PALOMINO MD CC: [id number] DICTATION DATE: 03/28/19911 MOBILE APPLICATION DEVELOPER: 03/28/19 1026 ADM IN [facility] [address] [place] [address]
--- NOTE | ~2019-03-27 | EC ---
PATIENT:OLEG ELY DATE OF SERVICE: 03/27/19 SEX: F MEDICAL RECORD: [id number] DATE OF : [birth year] LOCATION:[facility] AGE OF PATIENT: 68 ADMISSION DATE: 03/27/19 REFERRING PHYSICIAN: INTERPRETING PHYSICIAN: JOE JENSEN MD ECHOCARDIOGRAM REPORT ECHO CHARGES 4 ECHO COMPLETE Date: 03/28/19 CLINICAL DIAGNOSIS: RESPIRTORY FAILURE, MURMUR ECHOCARDIOGRAPHIC MEASUREMENTS (adult normal given) AC root (d.<3.7cm) 2.5 cm LV Septum d (<1.2 cm> 1.4 cm Valve Excursion 1.6 cm LV Septum (systole) 1.8 cm Left Atria (s.<4.0cm> 5.7 cm LVPW d(<1.2cm) 0.9 cm RV (d.<2.3cm) 2.5 cm LVPW (sytole) 1.6 cm LV diastole(<5.6CM) 7.2 cm MV E-F(>70mm/sec) cm LV systole 5.7 cm LVOT Diameter 1.6 cm MV exc.(>10mm) cm Est.ejection fraction (50-75%) % DOPPLER: LVIT cm/sec A 140 cm/sec E 119 cm/sec LA cm/sec RVSP 19.3 mmHg LVOT 78 cm/sec AOP1/2T m/s Asc. Ao 332 cm/sec RVOT 80 cm/sec RA cm/sec PA 96 cm/sec AV Gradient Peak 44.1 mmHg AV Mean 29.2 mmHg AV Area 0.5 cm MV Gradient Peak 8.4 mmHg MV Mean 5.7 mmHg MV Area cm COMMENTS: Manager Foreign: Ezequiel PEÑA Blood And Plasma Laboratory Assistant: 1 Dr. Jensen TAPE# PACS Pericardial Effusion Y DATE OF SERVICE: 03/28/2019 ECHOCARDIOGRAM FINDINGS: 1. Left ventricular chamber size is significantly dilated. Left ventricular systolic function is markedly reduced, overall ejection fraction 20% to 25%. 2. Left atrium is enlarged at 5.7 cm. Right atrium and right ventricular chamber sizes are as well mildly dilated. 3. Valvular structures: Aortic valve demonstrates severe calcific aortic ECHOCARDIOGRAM REPORT [id number] OLEG ELY stenosis, valve area calculates at 0.5 cm. Pressure gradient of 44 mm across the valve. The remaining valvular structures have normal structure and motion. 4. Doppler interrogation reveals severe mitral regurgitation, no other valvular insufficiency or stenosis. Pulmonary systolic pressure estimated at 19 mmHg. 5. There does appear to be a thrombus in the right ventricular apex. 6. Small pericardial effusion is present. This is not hemodynamically significant. TRANSINT:[id number] Voice Confirmation ID: [id number] DOCUMENT ID: [id number] JOE JENSEN MD CC: [id number] DICTATION DATE: 03/28/19 162 PILLOWCASE MAKER: 03/28/19 2341 ADM IN [facility] [id number] [place] [address]
--- NOTE | 2019-03-27 18:27 | NUR ---
PT INTUBATED AT THIS TIME BY DR. PUENTES. 7.5 CM TUBE. 23 AT THE LIP. SECURED BY RT.
--- NOTE | 2019-03-27 19:12 | NUR ---
PT LAYING IN BED. PT IS INTUBATED AND IV PATENT AND INFUSING PROPOFOL AT 5MCG/KG/MIN AT THIS TIME. PT IS SEDATED. VSS. WILL CONT TO MONITOR PATIENT.
--- NOTE | 2019-03-27 19:16 | NUR ---
PT ATTEMPTING TO PULL AT BUTTERFLY WHILE LAB IS DRAWING. PT OPENING EYES. UPPED PROPOFOL TO 10MCG/KG/MIN AT THIS TIME.
[2019-03-27 19:25] LABS: BASOPHILS 0.1 % (0-2); EOSINOPHILS 0.9 % (0-7); HEMATOCRIT 45.4 % (36.0-48.0); HEMOGLOBIN 13.6 g/dL (12-16); IMMATURE GRANULOCYTES 0.2 % (0-5); LYMPHOCYTES 7.8 % (15-50); MCH 27.1 pg (26.0-34.0); MCV 90.4 fL (80.0-100.0); MONOCYTES 6.1 % (2-11); NEUTROPHILS 84.9 % (40-80); PLATELET COUNT 210 10x3/uL (130-400); RBC 5.02 10x6/uL (4.00-5.40); WBC 8.5 10x3/uL (4.8-10.8)
[2019-03-27 19:35] LABS: CALC OSMOLALITY 290 mosm/kg (275-300); CALCIUM 10.3 mg/dL (8.5-10.1); CARBON DIOXIDE 38.4 mmol/L (21.0-32.0); CHLORIDE - SERUM 104 mmol/L (98-107); CREATININE - SERUM 0.9 mg/dL (0.6-1.3); GLUCOSE 135 mg/dL (74-106); POTASSIUM - SERUM 5.3 mmol/L (3.5-5.1); SODIUM 144 mmol/L (136-145); UREA NITROGEN 18 mg/dL (7-18); eGFR NON AFRICAN AMERICAN 66 mL/min (90-120)
[2019-03-27 19:39] LABS: APTT 26.2 SECONDS (22.8-39.4); INR 1.05 (0.85-1.17); PROTIME 13.2 SECONDS (11.6-15.0)
--- NOTE | 2019-03-27 19:55 | NUR ---
20G IV TO ABDOMEN.
[2019-03-27 19:57] LABS: ALBUMIN 3.4 g/dL (3.4-5.0); ALKALINE PHOSPHATASE 113 U/L (46-116); ALT (SGPT) 18 U/L (10-68); BILIRUBIN - TOTAL 0.62 mg/dL (0.2-1.3); CKMB 5.6 U/L (0.0-3.6); CREATINE KINASE 62 UL (21-215); PROTEIN - SERUM 6.8 g/dL (6.4-8.2)
[2019-03-27 20:00] LABS: TROPONIN-I 1.329 ng/mL (0.000-0.060)
--- NOTE | 2019-03-27 20:30 | NUR ---
PT ARRIVED TO FLOOR ACCOMPANIED BY ER STAFF. PT AGITATED, SEDATED BUT OPENS EYES. PIV IN RT HAND, PIV IN MIDDLE UPPER ABDOMEN, SEE IV FLOWSHEET. JOYCE IN PLACE DRAINING YELLOW URINE. PT IN SOFT WRIST RESTRAINTS, VENT, ETT 7.5, LIP LINE RT AT 24CM. NO ACUTE DISTRESS AT THIS TIME, WILL CONTINUE TO MONITOR.
[2019-03-27 20:52] LABS: APPEARANCE CLEAR (CLEAR); BACTERIA MANY /hpf (NEGATIVE); BILIRUBIN NEGATIVE (NEGATIVE); COLOR YELLOW (YELLOW); EPITHELIAL CELLS 0-5 /hpf (0-5); GLUCOSE NEGATIVE (NEGATIVE); KETONE NEGATIVE (NEGATIVE); NITRITE POSITIVE (NEGATIVE); PROTEIN TRACE mg/dL (NEGATIVE); RED CELLS - URINE 0-5 /hpf (0-5); SPECIFIC GRAVITY 1.025 (1.005-1.020); UROBILINOGEN NORMAL (NORMAL); WHITE CELLS - URINE 0-5 /hpf (NEGATIVE)
[2019-03-27 20:53] LABS: MUCUS <1+ /lpf (NONE SEEN)
--- NOTE | 2019-03-27 21:00 | NUR ---
PT SEDATED, OPENS EYES, FAMILY MEMBER AT BEDSIDE. UPDATED ON STATUS, QUESTIONS ANSWERED. WILL CONTINUE TO MONITOR.
--- NOTE | 2019-03-27 23:00 | NUR ---
PT SEDATED, OPENS EYES. NO ACUTE DISTRESS NOTED AT THIS TIME.
[2019-03-28] VITALS (23 sets, daily range): BP systolic 16–169; BP diastolic 67–103; BMI 47.0
--- NOTE | 2019-03-28 01:00 | NUR ---
PT SEDATED, OPENS EYES. NO ACUTE DISTRESS AT THIS TIME.
--- NOTE | 2019-03-28 03:00 | NUR ---
PT SEDATED AND OPENS EYES, VITALS STABLE, WILL CONTINUE TO MONITOR.
--- NOTE | 2019-03-28 05:13 | NUR ---
ATTEMPTED TO PLACE NG TUBE, PT BEGAN BLEEDING PROFUSELY FROM BOTH NARES WELL MOUTH. PT STABLE AT THIS TIME, WILL CONTINUE TO MONITOR.
[2019-03-28 05:55] LABS: BASOPHILS 0.2 % (0-2); EOSINOPHILS 0 % (0-7); HEMATOCRIT 43.4 % (36.0-48.0); HEMOGLOBIN 13.6 g/dL (12-16); IMMATURE GRANULOCYTES 0.3 % (0-5); LYMPHOCYTES 12.2 % (15-50); MCH 26.9 pg (26.0-34.0); MCHC 31.3 g/dL (31.0-37.0); MEAN PLATELET VOLUME 10.6 fL (7.4-10.4); NEUTROPHILS 85.3 % (40-80); PLATELET COUNT 213 10x3/uL (130-400); RBC 5.05 10x6/uL (4.00-5.40); RDW 15.8 % (11.5-14.5); WBC 6.6 10x3/uL (4.8-10.8)
[2019-03-28 06:15] LABS: ALBUMIN 3.3 g/dL (3.4-5.0); ALKALINE PHOSPHATASE 102 U/L (46-116); ALT (SGPT) 16 U/L (10-68); BILIRUBIN - TOTAL 0.51 mg/dL (0.2-1.3); CALC OSMOLALITY 287 mosm/kg (275-300); CALCIUM 10.1 mg/dL (8.5-10.1); CARBON DIOXIDE 34.2 mmol/L (21.0-32.0); CHLORIDE - SERUM 102 mmol/L (98-107); CREATININE - SERUM 0.7 mg/dL (0.6-1.3); GLUCOSE 126 mg/dL (74-106); MAGNESIUM - SERUM 1.8 mg/dL (1.8-2.4); PHOSPHOROUS 2.9 mg/dL (2.5-4.9); PRO BNP 9797 pg/mL (0-125); PROTEIN - SERUM 6.3 g/dL (6.4-8.2); SODIUM 142 mmol/L (136-145); THYROID STIMULATING HORMONE 0.97 uIU/mL (0.36-3.74); UREA NITROGEN 21 mg/dL (7-18); eGFR NON AFRICAN AMERICAN 89 mL/min (90-120)
[2019-03-28 06:43] LABS: MCV 85.9 fL (80.0-100.0)
--- NOTE | 2019-03-28 07:00 | NUR ---
PATIENT SEDATED ON DIPRIVAN AT 35 MCG/KG/MIN. ETT SECURE TO VENT BILATERAL REFUGIO SOUNDS EQUAL. SQUINTS EYES WHEN PUPILS CHECKED. JOYCE CATH PATENT CLEAR ODETTE URINE. IV MID CHEST SALINE LOCKED NO REDNESS OR SWELLING. DIPRIVAN INFUSING LEFT HAND NO REDNESS OR SWELLING.
--- NOTE | 2019-03-28 08:07 | NUR ---
DAUGHTER CALLED. PLANS ON SETTING UP PASSWORD WHEN SHE COMES UP HERE.
--- NOTE | 2019-03-28 09:30 | NUR ---
MARTHA WITH VASCULAR ACCESS HERE. MIDLINE PLACED RIGHT UPPER ARM. PATIENT TOLERATED WELL.
--- NOTE | 2019-03-28 10:30 | NUR ---
DR. RIOS HERE ORDERS TO TURN SEDATION OFF AND WAKE PATIENT UP. DIPRIVAN TURNED OFF. PATIENT PLACED ON CPAP MODE ON VENT. PHONE CALL TO DAUGHTER OF PATIENT LEIGHA NOTIFIED OF PLANS TO EXTUBATE PATIENT TODAY. STATES SHE WILL BE HERE IN ABOUT AN HOUR. HAS NO PROBLEM WITH EXTUBATION.
--- NOTE | 2019-03-28 10:32 | NUR ---
AWAKE OBEYING COMMANDS. SQUEEZES HANDS ON REQUEST AND MOVES TOES ON REQUEST. MAKES EYE CONTACT. NODING HEAD TO YES AND NO QUESTIONS. SHAKES HEAD NO WHEN ASKED IF SHE WANTS THE TUBE DOWN HER THROAT. CALM AND COOPERATIVE. DIPRIVAN AT 10 MCG/KG. ORAL CARE DONE BLOODY SPUTUM RETURNED.
--- NOTE | 2019-03-28 12:00 | NUR ---
TOLERATING CPAP WELL. NO DISTRESS. RESP NON LABORED. DEEP AND REGULAR. DAUGHTER HERE UPDATE GIVEN.
--- NOTE | 2019-03-28 13:20 | NUR ---
PATIENT TOLERATING CPAP WELL. STILL SOME BLOODY SECRETIONS. DAUGHTER AT BEDSIDE. PATIENT AWAKE OBEYING COMMANDS. NO DISTRESS
--- NOTE | 2019-03-28 13:45 | NUR ---
DR. RIOS NOTIFIED OF LEAK TEST, CURRENT VITAL SIGNS, HEART RATE AND PULSE OX. ORDERS TO EXTUBE RECEIVED. RESP THERAPY AND FAMILY NOTIFIED
--- NOTE | 2019-03-28 13:50 | NUR ---
EXTUBATED. ON 5 LITERS HIGH IVORY OXYGEN. NO DISTRESS. FAMILY HERE
--- NOTE | 2019-03-28 15:06 | NUR ---
DR. COBOS IN ROOM TALKING WITH FAMILY
--- NOTE | 2019-03-28 16:00 | NUR ---
PO FLUIDS GIVEN. NO DIFFICULTY SWALLOWING, NO COUGHING. AHA DIET ORDERED.
--- NOTE | 2019-03-28 16:30 | NUR ---
NO DISTRESS. RESP DEEP AND REGULAR. FAMILY AT BEDSIDE
--- NOTE | 2019-03-28 17:00 | NUR ---
AHA DIET SERVED ATE FAIR. NO DISTRESS NO PROBLEMS WITH SWALLOWING, NO COUGHING
--- NOTE | 2019-03-28 18:00 | NUR ---
WATCHING TV. NO DISTRESS
--- NOTE | 2019-03-28 18:11 | MORECARE ---
CASE MANAGEMENT DISCHARGE SUMMARY PATIENT: OLEG ELY UNIT: [id number] ADM DATE: 03/27/19 AGE: 68 : 52 SEX: F ROOM/BED: D.2311 AUTHOR: SIGRIDDOC PHYSICIAN: REFERRING PHYSICIAN: ADORE COBOS MD DATE OF SERVICE: 03/28/19 Discharge Plan Patient Name: OLEG ELY Facility: [facility]:[place] : 1950 Planned Disposition: Anticipated Discharge Date: Discharge Date: Expected LOS: Initial Reviewer: [email or web address] Initial Review Date: 03/28/2019 Generated: 03/28/19 7:11 pm Comments DCP- Discharge Planning Updated by [email or web address]: Deedee Seals on 03/28/19 5:[address] Patient Name: OLEG ELY Admission Status: ER Accout number: [id number] Admission Date: 03-27-2019 : 1950 Admission Diagnosis: Attending: ADORE COBOS Current LOS: 1 Anticipated DC Date: Planned Disposition: Primary Insurance: [facility] [employer] Discharge Planning Comments: CM met with patient to complete initial dc planning assessment. CM educated patient on the CM role and verbal consent given by patient to complete assessment. Patient [facility] where she is partially independent with her care. At discharge patient plans to return to longterm and feels this is a safe discharge. Patient denied known discharge needs at this time. CM will continue to follow and will assist as needed with dc plans/needs. Evs Attendant: Deedee Seals DCPIA - Discharge Planning Initial Assessment Updated by [email or web address]: Deedee Seals on 03/28/19 6:09 pm * Is the patient Alert and Oriented? Yes * How many steps to enter\exit or inside your home? * PCP [facility] * Pharmacy [facility] * Preadmission Environment [facility] * ADLs Partial Dependent * Partial ADLs (Assistance needed) Ambulation Bathing Dressing Eating Medication Management Toileting Transfers * List name and contact numbers for known caregivers / representatives who currently or will assist patient after discharge: LEIGHA WILSON - DAUGHTER- [phone] EMILY - DAUGHTER - [phone] * Verbal permission to speak to the caregivers and representatives has been obtained from the patient. Yes * Community resources currently utilized None * Additional services required to return to the preadmission environment? No * Can the patient safely return to the preadmission environment? Yes * Has this patient been hospitalized within the prior 30 days at any hospital? No Patient Name: OLEG ELY Page 04506 at 1811 All edits/amendments must be made on the electronic document DICTATION DATE: 03/28/191810 SUPERVISOR NATURAL GAS PLANT: JEFF 03/28/191810 RPT#: [id number] DC DATE: STATUS: ADM IN [facility] [address] [place] [address] END OF REPORT
--- NOTE | 2019-03-28 19:15 | NUR ---
REPORT RECEIEVED, PT AAOX4, RESTING IN BED. PT ON 4L O2 VIA NC, NO SIGNS OF ACUTE DISTRESS NOTED. JOYCE IN PLACE, MIDLINE IN RIGHT UPPER ARM INFUSING, SEE FLOWSHEET. ASSESSMENT COMPLETED, SEE FLOWSHEET. WILL CONTINUE TO MONITOR.
--- NOTE | 2019-03-28 21:00 | NUR ---
PT RESTING IN BED, AAOX4. NO ACUTE DISTRESS NOTED AT THIS TIME. WILL CONTINUE TO MONITOR.
--- NOTE | 2019-03-28 23:00 | NUR ---
PT RESTING IN BED, NO ACUTE SIGNS OF DISTRESS. WILL CONTINUE TO MONITOR.
[2019-03-29] VITALS (13 sets, daily range): BP systolic 125–163; BP diastolic 56–83; Ht 157.5 cm; Wt 116.5 kg
--- NOTE | 2019-03-29 01:00 | NUR ---
PT RESTING IN BED, DENIES PAIN AT THIS TIME.
--- NOTE | 2019-03-29 03:00 | NUR ---
PT AAOX4, LAYING IN BED, NO ACUTE DISTRESS AT THIS TIME. WILL CONTINUE TO MONITOR.
--- NOTE | 2019-03-29 05:00 | NUR ---
PT RESTING IN BED, NO ACUTE DISTRESS NOTED. DENIES PAIN AT THIS TIME.
[2019-03-29 05:05] LABS: ALBUMIN 3.3 g/dL (3.4-5.0); BILIRUBIN - TOTAL 0.55 mg/dL (0.2-1.3); CALCIUM 9.7 mg/dL (8.5-10.1); CARBON DIOXIDE 35.9 mmol/L (21.0-32.0); MAGNESIUM - SERUM 1.9 mg/dL (1.8-2.4); POTASSIUM - SERUM 3.9 mmol/L (3.5-5.1); PROTEIN - SERUM 6.1 g/dL (6.4-8.2)
[2019-03-29 05:13] LABS: PHOSPHOROUS 4.7 mg/dL (2.5-4.9)
--- NOTE | 2019-03-29 07:00 | NUR ---
REPORT RECEIEVED FROM THE OFF GOING RN. SEE ASSESSMENT IN THE PTS FLOW SHEET. VSS. PT DENIES PAIN AT THIS TIME. CALL LIGHT IN REACH. WILL CONT POC.
[2019-03-29 07:42] LABS: HEMOGLOBIN 12.7 g/dL (12-16); LYMPHOCYTES 15.7 % (15-50); MCHC 31.8 g/dL (31.0-37.0); MCV 84.9 fL (80.0-100.0); MEAN PLATELET VOLUME 10.2 fL (7.4-10.4); NEUTROPHILS 73.2 % (40-80); PLATELET COUNT 189 10x3/uL (130-400); RBC 4.71 10x6/uL (4.00-5.40); RDW 16.2 % (11.5-14.5)
[2019-03-29 07:54] LABS: WBC 9.4 10x3/uL (4.8-10.8)
--- NOTE | 2019-03-29 09:31 | NUR ---
DR RIOS AT THE PTS BEDSIDE. OK TO TRANSFER TO THE FLOOR.
--- NOTE | 2019-03-29 10:28 | NUR ---
PT REQUESTED A BEDPAN. PT HAD A LARGE FORMED BM. PT CLEANED AND LINENES CHANGED.
--- NOTE | 2019-03-29 12:22 | NUR ---
DR COBOS AT THE PTS BEDSIDE. POSSBLE TRANSFER TO RESTORATIONIST FOR TAVR PROCEDURE. PT IN COMPLAINCE TO POC.
--- NOTE | 2019-03-29 12:30 | NUR ---
PT REQUESTED THAT I CALL LEIGHA HER DAUGHTER FOR AN UPDATE. LEIGHA WAS CALLED AND NOTIFIED.
--- NOTE | 2019-03-29 13:04 | NUR ---
NURSE FROM [facility] CALLED ABOUT THE PT. FACESHEET FAXED TO [phone] FOR TRANSFER.
--- NOTE | 2019-03-29 14:05 | NUR ---
PT REQUSTED A BEDPAN. PT HAD A SEMI SOFT STOOL. PT CLEANED. CALL LIGHT IN REACH. WILL CONT POC.
--- NOTE | 2019-03-29 15:50 | NUR ---
RECIEVED ROOM AT [facility]. REPORT CALLED TO JANES BILL RN. PT WILL BE GOING TO ROOM 926.
--- NOTE | 2019-03-29 17:00 | NUR ---
[facility] CALLED. THEY TRANSFERED THE AMBULANCE COMPANY TO [facility] TO TRANSFER THE PT. PAPER WORK FILLED OUT AND FAXED TO [facility].
--- NOTE | 2019-03-29 19:20 | NUR ---
REPORT REC'D AND CARE ASSUMED, PT AWAKE, ALERT, AND ORIENTED X 3. RIGHT UPPER ARM MIDLINE PATENT WITH NS @ 5CC/HR, PT RUTLEDGE SLOWLY, JOYCE PATENT DRAINING YELLOW URINE WITH SEDIMENT, PP WEAKLY PALPABLE, SCARS TO MIDBACK NOTED, PT DENIES PAIN OR NEEDS, O2 @ 2L VIA NC, SR UP X 2, BED IN LOW POSITION, CALL LIGHT IN REACH.
--- NOTE | 2019-03-29 19:50 | NUR ---
[facility] CALLED NEEDING INFORMATION ON TRANPORTING PT WITH EKG, PAPERWORK FILLED OUT AND FAXED REQUESTED.
--- NOTE | 2019-03-29 20:15 | NUR ---
PT REQUESTING SOMETHING TO EAT DUE TO FEELING DIZZY AND LIGHTHEADED, STATES SHE DID NOT EAT SUPPER BECAUSE THE MEAT WAS TO TOUGH.
--- NOTE | 2019-03-29 20:25 | NUR ---
PT REQUESTING BEDPAN, PT PLACED ON BEDPAN CALL LIGHT IN REACH.
--- NOTE | 2019-03-29 20:35 | NUR ---
PT REMOVED FROM BEDPAN, SM LIQUID BROWN STOOL NOTED, BOTTOM EXCORIATED WITH SM SORE NOTED, CLAU BUTT PASTE APPLIED FOR COMFORT, PARTIAL LINEN REN PROVIDED, PT REPOSITIONED FOR COMFORT, SR UP X 2, CALL LIGHT IN REACH.
--- NOTE | 2019-03-29 21:25 | NUR ---
[facility] AT [facility] TO TRANSPORT PT, PT BELONGINGS GIVEN TO AMBULANCE SERVICE ALONG WITH PAPERWORK, ASSISTED TO MOVE PATIENT ONTO STRETCHER.
--- NOTE | 2019-03-30 17:30 | MORECARE ---
CASE MANAGEMENT DISCHARGE SUMMARY PATIENT: OLEG ELY UNIT: [id number] ADM DATE: 03/27/19 AGE: 68 : 52 SEX: F ROOM/BED: D.2311 AUTHOR: SIGRID,DOC PHYSICIAN: REFERRING PHYSICIAN: ADORE COBOS MD DATE OF SERVICE: 03/30/19 Discharge Plan Patient Name: OLEG ELY Facility: [facility]:[place] : 1950 Planned Disposition: Acute Care Hospital Anticipated Discharge Date: Discharge Date: 03/29/2019 Expected LOS: Initial Reviewer: [email or web address] Initial Review Date: 03/28/2019 Generated: 03/30/19 6:30 pm Comments DCP- Discharge Planning Updated by [email or web address]: Deedee Seals on 03/30/19 4:[address] Late Entry 03/29/19 CM notified that patient is going to transfer to [facility] for TAVRN. Nursing stated everything has been set up awaiting ambulance transfer. Nursing stated that family is aware of transfer. Patient signed D/C IMM 03/29/19 @ 1750 DCP- Discharge Planning Updated by [email or web address]: Deedee Seals on 03/28/19 5:[address] Patient Name: OLEG ELY Admission Status: ER Accout number: [id number] Admission Date: 03-27-2019 : 1950 Admission Diagnosis: Attending: ADORE COBOS Current LOS: 1 Anticipated DC Date: Planned Disposition: Primary Insurance: [facility] MEDIC[facility] SOLUTIONS Discharge Planning Comments: CM met with patient to complete initial dc planning assessment. CM educated patient on the CM role and verbal consent given by patient to complete assessment. Patient lives [facility] where she is partially independent with her care. At discharge patient plans to return to care home and feels this is a safe discharge. Patient denied known discharge needs at this time. CM will continue to follow and will assist as needed with dc plans/needs. Hog Cutter: Deedee Seals DCPIA - Discharge Planning Initial Assessment Updated by [id number]: Deedee Seals on 03/28/19 6:09 pm * Is the patient Alert and Oriented? Yes * How many steps to enter\exit or inside your home? * PCP [facility] * Pharmacy [facility] * Preadmission Environment [employer] * ADLs Partial Dependent * Partial ADLs (Assistance needed) Ambulation Bathing Dressing Eating Medication Management Toileting Transfers * List name and contact numbers for known caregivers / representatives who currently or will assist patient after discharge: LEIGHA WILSON - DAUGHTER- [phone] EMILY - DAUGHTER - [phone] * Verbal permission to speak to the caregivers and representatives has been obtained from the patient. Yes * Community resources currently utilized None * Additional services required to return to the preadmission environment? No * Can the patient safely return to the preadmission environment? Yes * Has this patient been hospitalized within the prior 30 days at any hospital? No Coverage Notice Reviewer: [email or web address] Asmita Seals Notice Issued Date-Time: 03/29/2019 17:50 Notice Type: IM Discharge Notice Notice Delivered To: Patient Relationship to Patient: Self Melting Operator Name: Delivery Method: HAND - Hand Delivered Coby Days: Prior Verbal Notification: Recipient Understood Notice: Yes Recipient Signature: Yes Med Rec Note Co-signed by Attending: Coverage Notice Comment: Last DP export: 03/28/19 5:11 p Patient Name: OLEG ELY Page 11301 at 1730 All edits/amendments must be made on the electronic document DICTATION DATE: 03/30/191729 CLERK FUNERAL DETAIL: JEFF 03/30/191729 RPT#: [id number] DC DATE:03/29/19 [facility]US: [facility] [address] [place] [address] END OF REPORT
[2019-04-01 17:07] LABS: AEROBE ID Preliminary report (())
[2019-04-02 18:08] LABS: RESULT 1 Gram positive rods (())
== END 2019-03-29 21:30 | DRG 208 ==
LOC: D.ER 18:18 → D.ICU 19:09
PROVIDERS: Family Medicine; ADMIT Internal Medicine Nephrology; ATTEND Internal Medicine Nephrology
PROC: 5A1935Z Respiratory Ventilation, Less than 24 Consecutive Hours (ICD-10-PCS; principal; 2019-03-27)
PROC: 0BH17EZ Insertion of Endotracheal Airway into Trachea, Via Natural or Artificial Opening (ICD-10-PCS; 2019-03-27)
DX: J18.9 Pneumonia, unspecified organism (principal); J96.20 Acute and chronic respiratory failure, unspecified whether with hypoxia or hypercapnia; I50.43 Acute on chronic combined systolic (congestive) and diastolic (congestive) heart failure; G93.41 Metabolic encephalopathy; Z68.42 Body mass index [BMI] 45.0-49.9, adult; N39.0 Urinary tract infection, site not specified; I11.0 Hypertensive heart disease with heart failure; I35.0 Nonrheumatic aortic (valve) stenosis; E11.9 Type 2 diabetes mellitus without complications; E66.01 Morbid (severe) obesity due to excess calories; E78.5 Hyperlipidemia, unspecified; E07.9 Disorder of thyroid, unspecified; K21.9 Gastro-esophageal reflux disease without esophagitis; F41.9 Anxiety disorder, unspecified; B96.1 Klebsiella pneumoniae [K. pneumoniae] as the cause of diseases classified elsewhere